=== PATIENT | female | born 1970 | race Caucasian/White ===

== ENCOUNTER 2020-11-05 10:20 | Outpatient (REF) | payer MEDICAID, SELFPAY | END 2020-11-05 10:21 | disposition home or self-care (01) | LOC: HO.LAB 10:20 | PROVIDERS: Visit Provider Internal Medicine | DX: Z20.822 Contact with and (suspected) exposure to COVID-19 (principal) | CPT/HCPCS: 36415; C9803; U0003; U0005 ==

== ENCOUNTER 2020-12-12 10:47 | Outpatient (REF) | payer MEDICAID, SELFPAY ==
--- NOTE | ~2020-12-12 | MM_ITS ---
EXAMINATION: MM SCREENING DIGITAL BREAST TOMOSYNTHESIS, BILATERAL CLINICAL INFORMATION: Screening. Asymptomatic. The lifetime risk of breast cancer based on the Tyrer-Cuzick Model is 9.0%. COMPARISON: Mammography: December 06, 2019 TECHNIQUE: Digital breast tomosynthesis is performed in both the craniocaudal and mediolateral oblique views along with computer-aided detection (CAD). Synthesized 2D images are generated from the tomosynthesis. FINDINGS: There are scattered areas of fibroglandular density (ACR BI-RADS breast composition Category b). There are no new significant masses, abnormal calcifications, or other abnormalities. Stable density anterior medial inferior left breast again seen. MM/MM tomosynthesis screening BI IMPRESSION: There are no significant changes from prior study. ASSESSMENT: BI-RADS 2: Benign RECOMMENDATION: Routine annual mammography screening. This patient's information was entered into a reminder system with a target due date for their next mammogram.
== END 2020-12-12 10:48 | disposition home or self-care (01) ==
LOC: HO.MAMMO 10:47
PROVIDERS: PCP Nurse Practitioner Primary Care
DX: Z12.31 Encounter for screening mammogram for malignant neoplasm of breast (principal)
CPT/HCPCS: 77063; 77067

== ENCOUNTER → 2020-12-20 14:23 | Outpatient (BNV) | payer MEDICAID, SELFPAY | PROVIDERS: PCP Nurse Practitioner Primary Care; Referring Provider Nurse Practitioner Primary Care; Visit Provider Internal Medicine Medical Oncology | DX: D64.9 Anemia, unspecified (principal) | CPT/HCPCS: 99204; 99213 ==

== ENCOUNTER 2020-12-30 11:53 | Outpatient (REF) | payer MEDICAID, SELFPAY | END 2020-12-30 11:54 | disposition home or self-care (01) | LOC: HO.MDS 11:53 | PROVIDERS: Visit Provider Internal Medicine Medical Oncology | DX: D50.9 Iron deficiency anemia, unspecified (principal) | CPT/HCPCS: 96365; J1439 ==

== ENCOUNTER 2021-01-07 12:54 | Outpatient (REF) | payer MEDICAID, SELFPAY | END 2021-01-07 12:55 | disposition home or self-care (01) | LOC: HO.MDS 12:54 | PROVIDERS: Visit Provider Internal Medicine Medical Oncology | DX: D50.9 Iron deficiency anemia, unspecified (principal) | CPT/HCPCS: 96365; J1439 ==

== ENCOUNTER 2021-04-28 06:23 | Day surgery (SDC) | payer MEDICAID, SELFPAY ==
[2021-04-21 15:32] VITALS: BMI 27.1
--- NOTE | 2021-04-25 08:43 | HO.ANESPROP2 ---
Documented by User: Lily Albarado 04/25/21 08:45 HPI - Anesthesia Eval Consult details Narrative: 50yo F for Upper Endoscopy and Colonoscopy PMFSH Active Problems Active Problems: All Active Problems (Updated 04/21/21 @ 15:27 by Berta Monzon) Anemia (Acute) Past Medical History Medical History Anemia Benign essential hypertension HTN (hypertension) Iron deficiency anemia Kidney stones Family History Family History Mother Colon cancer Diabetes Sister Lupus Father Diabetes Hypertension Unknown Breast cancer Surgical History Surgical History Delivery by section History of surgery on arm Hx of bariatric surgery Social History Social History Are you a primary acute care clinical nurse specialist to a significant other at home: No Do you presently have visiting nurse or other home services: No Alcohol intake: former Patient Tobacco Use Status: Never used Tobacco Use of substances other than those prescribed or required for medical reasons: No Have you been hit, kicked, punched, or otherwise hurt by someone within the past year? If so, by whom?: No Are you DNR?: No Advance Directives: No Advance Directives Information Provided: No Advance Directives on File: No Meds Allergies Allergy/AdvReac Type Severity Reaction Status Date / Time No Known Allergies Allergy Verified 04/21/21 15:31 Home Medications Medication Instructions Recorded Confirmed Last Taken Type acetaminophen [Tylenol Extra 500 mg PO Q6H PRN 12/20/20 04/21/21 Unknown History Strength] ascorbic acid (vitamin C) [Vitamin 250 mg PO DAILY 12/20/20 04/21/21 Unknown History C] lisinopril 5 mg PO DAILY 12/20/20 04/21/21 04/28/21 06:20 History wslnijexnhrq-Wq-fici-minerals 1 tab PO DAILY 12/20/20 04/21/21 Unknown History [Multiple Vitamin, Womens] Exam Exam Date and Time: April 25, 2021 0843 Height,Weight and Vital Signs: Height 5 ft 2 in Weight 67.132 kg Pertinent Lab Results Pertinent Lab Results: Laboratory Tests 12/20/20 12/20/20 15:25 15:41 WBC 6.5 Hgb 9.9 L Hct 32.5 L Plt Count 385 Sodium 140 Potassium 4.5 Chloride 106 Carbon Dioxide 24 BUN 17 H Creatinine 0.76 Assessment and Plan Assessment Anesthesia Assessment: Chart Reviewed Documented by User: Miryam Lira 04/28/21 07:22 [facility] Past Medical History Medical History Anemia Benign essential hypertension HTN (hypertension) Iron deficiency anemia Kidney stones Family History Family History Mother Colon cancer Diabetes Sister Lupus Father Diabetes Hypertension Unknown Breast cancer Surgical History Surgical History Delivery by section History of surgery on arm Hx of bariatric surgery Social History Social History Are you a primary acute care clinical nurse specialist to a significant other at home: No Do you presently have visiting nurse or other home services: No Alcohol intake: former Patient Tobacco Use Status: Never used Tobacco Use of substances other than those prescribed or required for medical reasons: No Have you been hit, kicked, punched, or otherwise hurt by someone within the past year? If so, by whom?: No Are you DNR?: No Advance Directives: No Advance Directives Information Provided: No Advance Directives on File: No Meds Allergies Allergy/AdvReac Type Severity Reaction Status Date / Time No Known Allergies Allergy Verified 04/21/21 15:31 Home Medications Medication Instructions Recorded Confirmed Last Taken Type acetaminophen [Tylenol Extra 500 mg PO Q6H PRN 12/20/20 04/21/21 Unknown History Strength] ascorbic acid (vitamin C) [Vitamin 250 mg PO DAILY 12/20/20 04/21/21 Unknown History C] lisinopril 5 mg PO DAILY 12/20/20 04/21/21 04/28/21 06:20 History eermnllcovwv-Rt-dpkf-minerals 1 tab PO DAILY 12/20/20 04/21/21 Unknown History [Multiple Vitamin, Womens] Exam Airway Mallampati Class: II TM Dist: >3cm Neck ROM: Full Assessment and Plan Assessment Anesthesia Assessment: Anesthesia Plan Discussed and Chart Reviewed Final Anesthetic Review NPO: Yes ASA Class: II Final Preanesthetic Review: No Changes in Pt Med Stat, Meds/Allgs Chart Reviewed, Consent Obtained/Reviewed and Anes Risks/Benef Reviewed Patient Risk: Low Procedure Risk: Low Assessment/Block/Sedation in SS: Assess/Block/Sedation-SS Anesthetic Plan Anesthetic Plan: MAC: Disposition: Standard PACU
[2021-04-28 07:01] LABS: UPreg QC Valid YES; Urine Pregnancy NEGATIVE (NEGATIVE)
[2021-04-28] MEDS: Lactated Ringers 1,000 ML 100 ML IVCONT (07:14)
[2021-04-28 08:44] VITALS: BP 91/58; PULSE 74; RESP 16; TEMP 36.2; O2SAT 99
--- NOTE | 2021-04-28 08:48 | P.BOP_ITS ---
Brief Operative Note Date of Service: 04/28/21 Pre-op diagnosis: Anemia, Screening Post-op diagnosis: other (Hiatal hernia, R/O celiac disease, Diverticulosis) Procedure: EGD with biopsies, Colonoscopy to the cecum and TI Surgeon: Dylon Arreola Anesthesia: MAC Was an Metal Mine Inspector used for this Procedure?: No Estimated blood loss (mL): 3.0 Pathology: other (A. Descending duodenum) Condition: stable Disposition: PACU
[2021-04-28 08:59] VITALS: BP 111/60; PULSE 83; RESP 16; TEMP 36.3; O2SAT 99
--- NOTE | 2021-04-28 09:58 | OP_ITS ---
SURGEON: Dylon Arreola MD INDICATIONS: The patient presents for evaluation of anemia and colorectal cancer screening. Full consent has been obtained from her for both procedures, including risks of bleeding and perforation. PREOPERATIVE DIAGNOSIS: POSTOPERATIVE DIAGNOSIS: PROCEDURE PERFORMED: Esophagogastroduodenoscopy with biopsies and colonoscopy to the cecum and terminal ileum. ESTIMATED BLOOD LOSS: COMPLICATIONS: ANESTHESIA: Monitored anesthesia care. ASSISTANTS: SPECIMENS: PREOPERATIVE DIAGNOSES: Anemia and colorectal cancer screening. POSTOPERATIVE DIAGNOSES: Anemia and colorectal cancer screening, rule out celiac disease, small hiatal hernia, diverticulosis, and internal hemorrhoids. DESCRIPTION OF PROCEDURE: The patient was placed in the left lateral decubitus position. The Olympus video gastroscope was passed in the posterior oropharynx and upper esophagus under direct vision. The scope was passed slowly into the distal esophagus. The gastroesophageal junction appeared normal at 35 cm. There was no sign of any esophagitis, Ortiz's esophagus, nor ulceration. The scope entered into the stomach. There was a small hiatal hernia. The scope was advanced to pylorus and the duodenum was cannulated to the descending portion. The duodenum including the bulb appeared normal without mass or ulceration. Biopsies were obtained from the second and third portions of duodenum. The scope was withdrawn back into the stomach. The gastric antrum appeared normal with good peristalsis. Along the body and proximal stomach, I could see a scar consistent with her previous gastric sleeve surgery. The scope was retroflexed visualizing the proximal stomach carefully which appeared normal, without any sign of mass or ulceration. The scope was straightened out and withdrawn back into the esophagus. The esophageal mucosa appeared normal. The scope was withdrawn from the patient. She was turned around for colonoscopy. The digital rectal exam revealed no abnormalities. The Olympus video pediatric colonoscope was entered into the rectum and advanced easily to the cecum. Once in the cecum, I did identify normal-appearing cecal pouch with appendiceal orifice and a normal-appearing ileocecal valve. The terminal ileum was cannulated and appeared normal. The scope was withdrawn back in the colon. The entire cecum and ileocecal valve appeared normal. The scope was slowly withdrawn assessing all mucosal surfaces carefully. Preparation was excellent. I did not visualize any sign of polyps, colitis, nor angiodysplasia. There was a mild amount of sigmoid diverticulosis. In the rectum, scope was retroflexed visualizing internal hemorrhoids, but no other pathology. The rectal mucosa appeared normal. The scope was straightened out and withdrawn from the patient. She tolerated both procedures well and was returned to the recovery area in stable condition. IMPRESSION: 1. Small hiatal hernia. 2. Rule out celiac disease. 3. Diverticulosis. 4. Internal hemorrhoids. PLAN: The results of the biopsy will be checked. I would recommend a repeat colonoscopy in 5 years given her significant family history of colon cancer in her mother at age 50. She will continue follow up with Dr. Lynne in regard to her anemia. This seems to be related to her heavy menses. She will otherwise see me on a p.r.n. basis. MD ABENA Lowery/AIDAN / [phone]
== END 2021-04-28 09:43 | disposition home or self-care (01) ==
PROVIDERS: Nurse Practitioner; PCP Nurse Practitioner Primary Care; Visit Provider Internal Medicine
PROC: (CPT 45378; principal; 2021-04-28 07:30)
DX: Z12.11 Encounter for screening for malignant neoplasm of colon (principal); Z80.0 Family history of malignant neoplasm of digestive organs; K57.30 Diverticulosis of large intestine without perforation or abscess without bleeding; K64.8 Other hemorrhoids; D50.9 Iron deficiency anemia, unspecified; K44.9 Diaphragmatic hernia without obstruction or gangrene; I10 Essential (primary) hypertension; Z79.899 Other long term (current) drug therapy; Z98.84 Bariatric surgery status
CPT/HCPCS: 45378; 43239; 81025; 88305; J3010

== ENCOUNTER 2021-06-04 13:35 | Outpatient (REF) | payer MEDICAID, SELFPAY ==
--- NOTE | ~2021-06-04 | US_ITS ---
EXAMINATION: US PELVIS CLINICAL INFORMATION: Irregular menstrual cycles in excessive and frequent menstruation COMPARISON: None TECHNIQUE: Ultrasound of the pelvis is performed using both transabdominal and transvaginal transducers along with Doppler. Transvaginal imaging is performed due to inadequate visualization transabdominally. FINDINGS: The uterus is anteverted and retroflexed and measures 8.5 x 4.4 x 5.1 cm in dimension. The endometrium is difficult to define and measure. The endometrium may be slightly thickened measuring 1.8 cm. The endometrium appears heterogeneous appearing. There is fluid in the endometrial cavity. There is a 9 x 8 x 9 mm isoechoic area in the endometrium with flow questionable for an endometrial polyp. No focal uterine lesion is seen. The ovaries are normal-appearing. The right ovary measures 2.5 x 1.2 x 1.3 cm. The left ovary measures 2.6 x 1.9 x 2 cm. There is no fluid in the pelvis. US/US pelvic and transvaginal IMPRESSION: The endometrium is difficult to define and may be slightly thickened measuring 1.8 cm. The endometrium is heterogeneous appearing with question of a 9 x 8 x 9 mm endometrial polyp.
== END 2021-06-04 13:36 | disposition home or self-care (01) ==
LOC: HO.US 13:35
PROVIDERS: PCP Nurse Practitioner Primary Care; Visit Provider Nurse Practitioner Primary Care
DX: N92.0 Excessive and frequent menstruation with regular cycle (principal)
CPT/HCPCS: 76830; 76856

== ENCOUNTER 2021-06-17 10:12 | Outpatient (REF) | payer MEDICAID, SELFPAY ==
[2021-06-18 03:21] LABS: CT PCR NOT DETECTED (Not Detect.); NG PCR NOT DETECTED (Not Detect.)
[2021-06-19 16:37] LABS: HPV mRNA E6/E7 rflx Not Detected (Not Detected)
== END 2021-06-17 10:13 | disposition home or self-care (01) ==
LOC: HO.LAB 10:12
PROVIDERS: PCP Nurse Practitioner Primary Care; Visit Provider Obstetrics & Gynecology
DX: Z01.419 Encounter for gynecological examination (general) (routine) without abnormal findings (principal); N92.0 Excessive and frequent menstruation with regular cycle
CPT/HCPCS: 36415; 81025; 84439; 84443; 84702; 85027; 87491; 87591; 87624; 88142; 88305; 99202; J1100; J2250; J2405; J3010

== ENCOUNTER 2021-06-20 09:20 | Day surgery (SDC) | payer MEDICAID, SELFPAY ==
[2021-06-17 12:01] LABS: Hematocrit 37.6 % (37-47); Hemoglobin 12.3 g/dl (12.0-16.0); Mean Corpuscular HGB Conc 32.7 g/dl (31.0-35.0); Mean Corpuscular Hemoglobin 30.4 pg (27.0-33.0); Mean Corpuscular Volume 93.1 fL (80-98); Platelet Count 338 X10*3/uL (160-400); Red Blood Count 4.04 X10*6/uL (4.20-5.50); Red Cell Distribution Width 12.3 % (11.0-16.0); White Blood Count 6.6 X10*3/uL (4.8-10.8)
[2021-06-17 12:26] LABS: HCG Quantitative < 2 mIU/mL; TSH reflex Free T4 0.23 uIU/mL (0.32-4.0)
[2021-06-17 13:19] LABS: Free T4 (Free Thyroxine) 1.05 ng/dL (0.71-1.85)
--- NOTE | 2021-06-18 15:18 | HO.ANESPROP2 ---
Documented by User: Lily Albarado NP 06/18/21 15:18 HPI - Anesthesia Eval Consult details Narrative: 50yo F for D&C Hysteroscopy,possible myomectomy,possible polypectomy s/p EGD and [place] with TIVA 04/2021 PMFSH Active Problems Active Problems: All Active Problems (Updated 06/17/21 @ 10:35 by Duy Celeste MD) Menorrhagia (Acute) Anemia (Acute) Past Medical History Medical History Anemia Benign essential hypertension HTN (hypertension) Iron deficiency anemia Kidney stones Family History Family History Mother Colon cancer Diabetes Sister Lupus Father Diabetes Hypertension Unknown Breast cancer Surgical History Surgical History (Updated 06/20/21 @ 10:19 by Akanksha Will MD) Delivery by section History of surgery on arm Hx of bariatric surgery Tubal ligation status Social History Social History Are you a primary specialist wound care to a significant other at home: No Do you presently have visiting nurse or other home services: No Alcohol intake: former Patient Tobacco Use Status: Never used Tobacco Use of substances other than those prescribed or required for medical reasons: No Are you DNR?: No Advance Directives: No Advance Directives Information Provided: Yes Recently lost weight without trying: No Nutrition Risks: No Nutritional Risk Patient : No Meds Allergies Allergy/AdvReac Type Severity Reaction Status Date / Time No Known Allergies Allergy Verified 06/17/21 10:21 Home Medications Medication Instructions Recorded Confirmed Last Taken Type acetaminophen 500 mg tablet 500 mg PO Q6H PRN 12/20/20 05/06/21 Unknown History (Tylenol Extra Strength) lisinopril 5 mg tablet 5 mg PO DAILY 12/20/20 05/06/21 06/20/21 History Exam Exam Date and Time: June 18, 2021 1518 Pertinent Lab Results Pertinent Lab Results: Laboratory Tests 06/17/21 06/17/21 11:30 11:30 WBC 6.6 RBC 4.04 L Hgb 12.3 Hct 37.6 MCV 93.1 MCH 30.4 MCHC 32.7 RDW 12.3 Plt Count 338 MPV 10.0 Absolute Nucleated RBC 0.000 Nucleated RBC % (auto) 0.0 TSH 0.23 L Free T4 1.05 Beta HCG, Quant < 2 Assessment and Plan Assessment Anesthesia Assessment: Chart Reviewed Documented by User: Akanksha Will MD 06/20/21 10:20 [facility] Past Medical History Medical History Anemia Benign essential hypertension HTN (hypertension) Iron deficiency anemia Kidney stones Family History Family History Mother Colon cancer Diabetes Sister Lupus Father Diabetes Hypertension Unknown Breast cancer Family history of problems with anesthesia: No Surgical History Surgical History (Updated 06/20/21 @ 10:19 by Akanksha Will MD) Delivery by section History of surgery on arm Hx of bariatric surgery Tubal ligation status History of Problems with Anesthesia: No Social History Social History Are you a primary specialist wound care to a significant other at home: No Do you presently have visiting nurse or other home services: No Alcohol intake: former Patient Tobacco Use Status: Never used Tobacco Use of substances other than those prescribed or required for medical reasons: No Are you DNR?: No Advance Directives: No Advance Directives Information Provided: Yes Recently lost weight without trying: No Nutrition Risks: No Nutritional Risk Patient : No Meds Allergies Allergy/AdvReac Type Severity Reaction Status Date / Time No Known Allergies Allergy Verified 06/17/21 10:21 Home Medications Medication Instructions Recorded Confirmed Last Taken Type acetaminophen 500 mg tablet 500 mg PO Q6H PRN 12/20/20 05/06/21 Unknown History (Tylenol Extra Strength) lisinopril 5 mg tablet 5 mg PO DAILY 12/20/20 05/06/21 06/20/21 History Exam Height,Weight and Vital Signs: Height 5 ft 2 in Weight 67.585 kg Vital Signs Temp Pulse Resp BP Pulse Ox 06/20/21 09:52 98.1 F 71 17 126/67 96 Airway Mallampati Class: II TM Dist: >3cm Neck ROM: Full Partial: Upper and Lower Heart: RRR Lungs: CTAB Assessment and Plan Assessment Anesthesia Assessment: Anesthesia Plan Discussed Final Anesthetic Review Family History of Problems with Anesthesia: No History of Problems with Anesthesia: No NPO: Yes ASA Class: II Final Preanesthetic Review: No Changes in Pt Med Stat, Meds/Allgs Chart Reviewed, Consent Obtained/Reviewed and Anes Risks/Benef Reviewed Patient Risk: Low Procedure Risk: Low Assessment/Block/Sedation in SS: Assess/Block/Sedation-SS Anesthetic Plan Anesthetic Plan: GA Disposition: Standard PACU
[2021-06-20] VITALS (7 sets, daily range): BP systolic 117–133; BP diastolic 56–70; PULSE 55–76; RESP 16–18; TEMP 36.1–36.7; O2SAT 96–100; BMI 27.2
[2021-06-20 10:02] LABS: UPreg QC Valid YES; Urine Pregnancy NEGATIVE (NEGATIVE)
[2021-06-20] MEDS: Lactated Ringers 1,000 ML 100 ML IVCONT (10:15)
--- NOTE | 2021-06-20 12:58 | MHC.SHP ---
Pre-Procedural Eval Section A Date of Service: 06/20/21 The patient is an INPATIENT: No Changes since office visit: No Cold of Flu in the past 2 weeks, No New Medical Problems, No Changes in Medication and No Patient answered all questions The History & Physical has been completed within 30 days and I have reviewed it.: Yes Section B Chief Complaint: bleeding Allergies: Allergies Allergy/AdvReac Type Severity Reaction Status Date / Time No Known Allergies Allergy Verified 06/17/21 10:21 Plan Diagnosis/Plan: Unchanged I have reviewed the history and physical and performed a pertinent physical examination on my patient. No changes have occurred unless specified.
--- NOTE | 2021-06-20 14:04 | PM.OP ---
Brief Operative Note Date of Service: 06/20/21 Pre-op diagnosis: Menorrhagia Post-op diagnosis: same (Normal endometrial and endocervical cavity) Procedure: Hysteroscopy D&C Surgeon: Duy Celeste MD Anesthesia: MAC Was an Electronic Prepress Technician used for this Procedure?: No Estimated blood loss (mL): 0 Pathology: other (Endometrial Scrapping) Condition: stable Disposition: PACU
--- NOTE | 2021-06-20 14:05 | P.OP_ITS ---
Operative Note Operative Note Date of Service: 06/20/21 Narrative: Preop Diagnosis: Menorrhagia Operation: Diagnostic Hysteroscopy, Dilataion & Curettage Post Op Diagnosis: Normal endometrial cavity QBL: Minimal Anesthesia: MAC Surgeon: Duy Celeste MD Electrical Automation Engineer: None Complication: None Pathology: Endometrial Scrapings Procedure: The patient was put in the dorsal lithotomy position, scrubbed, and draped in the usual manner. A sterile speculum was inserted in the patient's vagina. The anterior lip of the cervix was grasped with a single tooth tenaculum. The cervix was dilated up to 5 mm, then the scope was inserted in the patient's uterus. Inspection revealed Normal endometrial cavity. Sharp curettings was carried on with moderate amount of tissue was retrieved. At the end of the procedure, all instruments were taken out of the patient uterine and vaginal cavity. The single tooth tenaculum was removed and homeostasis was assured using pressure,. The patient tolerated the procedure well and was transferred to the PACU in a stable condition.
== END 2021-06-20 15:10 | disposition home or self-care (01) ==
PROVIDERS: PCP Nurse Practitioner Primary Care; Visit Provider Obstetrics & Gynecology
PROC: 0UDB8ZZ Extraction of Endometrium, Via Natural or Artificial Opening Endoscopic (ICD-10-PCS; CPT 58558; principal; 2021-06-20 11:30)
DX: N92.0 Excessive and frequent menstruation with regular cycle (principal); N93.9 Abnormal uterine and vaginal bleeding, unspecified; D50.9 Iron deficiency anemia, unspecified; I10 Essential (primary) hypertension; Z79.899 Other long term (current) drug therapy; Z98.84 Bariatric surgery status; Z98.51 Tubal ligation status; Z87.442 Personal history of urinary calculi
CPT/HCPCS: 58558; 36415; 81025; 84439; 84443; 84702; 85027; 87491; 87591; 87624; 88142; 88305; 99202; J1100; J2250; J2405; J3010

== ENCOUNTER → 2021-07-03 13:41 | Outpatient (BNVA) | payer MEDICAID, SELFPAY | PROVIDERS: PCP Nurse Practitioner Primary Care; Visit Provider Obstetrics & Gynecology ==

== ENCOUNTER → 2021-09-04 11:32 | Outpatient (BNVA) | payer MEDICAID, SELFPAY | PROVIDERS: PCP Nurse Practitioner Primary Care; Visit Provider Obstetrics & Gynecology ==

== ENCOUNTER 2021-12-25 14:20 | Outpatient (REF) | payer MEDICAID, SELFPAY ==
--- NOTE | ~2021-12-25 | MM_ITS ---
EXAMINATION: MM SCREENING DIGITAL BREAST TOMOSYNTHESIS, BILATERAL CLINICAL INFORMATION: Screening. Asymptomatic. The lifetime risk of breast cancer based on the Tyrer-Cuzick Model is 7.1%. COMPARISON: Mammography: December 12, 2020 and December 06, 2019 TECHNIQUE: Digital breast tomosynthesis is performed in both the craniocaudal and mediolateral oblique views along with computer-aided detection (CAD). Synthesized 2D images are generated from the tomosynthesis. FINDINGS: There are scattered areas of fibroglandular density (ACR BI-RADS breast composition Category b). There are no significant masses, abnormal calcifications, or other abnormalities. MM/MM tomosynthesis screening BI IMPRESSION: There are no significant changes from prior study. ASSESSMENT: BI-RADS 1: Negative RECOMMENDATION: Routine annual mammography screening. This patient's information was entered into a reminder system with a target due date for their next mammogram.
== END 2021-12-25 14:21 | disposition home or self-care (01) ==
LOC: HO.MAMMO 14:20
PROVIDERS: PCP Nurse Practitioner Primary Care; Visit Provider Nurse Practitioner Primary Care
DX: Z12.31 Encounter for screening mammogram for malignant neoplasm of breast (principal)
CPT/HCPCS: 77063; 77067

== ENCOUNTER → 2021-12-30 14:17 | Outpatient (BNVA) | payer MEDICAID, SELFPAY | PROVIDERS: Visit Provider Obstetrics & Gynecology | DX: N92.0 Excessive and frequent menstruation with regular cycle (principal) | CPT/HCPCS: 99212 ==

== ENCOUNTER 2022-02-26 08:32 | Outpatient (REF) | payer MEDICAID, SELFPAY ==
[2022-02-26 15:46] LABS: CT PCR NOT DETECTED (Not Detect.)
[2022-02-26 15:47] LABS: NG PCR NOT DETECTED (Not Detect.)
== END 2022-02-26 08:33 | disposition home or self-care (01) ==
LOC: HO.LAB 08:32
PROVIDERS: Visit Provider Obstetrics & Gynecology
DX: Z30.430 Encounter for insertion of intrauterine contraceptive device (principal); N92.0 Excessive and frequent menstruation with regular cycle
CPT/HCPCS: 58300; 81025; 87491; 87591; J7298

== ENCOUNTER → 2022-04-30 09:37 | Outpatient (BNVA) | payer MEDICAID, SELFPAY | PROVIDERS: PCP Nurse Practitioner Primary Care; Visit Provider Obstetrics & Gynecology | DX: Z32.02 Encounter for pregnancy test, result negative (principal); Z30.432 Encounter for removal of intrauterine contraceptive device; N93.9 Abnormal uterine and vaginal bleeding, unspecified | CPT/HCPCS: 58301; 81025; 99212 ==

== ENCOUNTER 2022-06-11 12:25 | Outpatient (REF) | payer MEDICAID, SELFPAY ==
--- NOTE | ~2022-06-11 | US_ITS ---
EXAMINATION: US THYROID CLINICAL INFORMATION: Abnormal results of thyroid. COMPARISON: None TECHNIQUE: Linear transducer grayscale and color Doppler examination with attention to the region of the thyroid. FINDINGS: SIZE: Measurements of the thyroid lobes and nodules are given in sagittal, anteroposterior and transverse dimensions respectively. Right Thyroid Lobe: 4.42 x 1.21 x 1.34 cm, volume 3.73 mL. Parenchyma: The gland echotexture is homogeneous. Thyroid vascularity is normal. Left Thyroid Lobe: 4.65 x 1.07 x 1.61 cm, volume 4.22 mL. Parenchyma: The gland echotexture is homogeneous. Thyroid vascularity is normal. Isthmus: 0.29 cm in maximum AP dimension. Estimated total number of nodules greater than or equal to 1 cm: 0. [employer] Director nodules are described as follows: 1. Location: Left isthmus. Size: 0.24 x 0.17 x 0.21 cm, volume 0.005 mL. Nodule characteristics: Composition: Spongiform (0). Echogenicity: Anechoic (0). Shape: Not taller than wide (0). Margins: Smooth (0). Echogenic Foci: None (0). ACR TI-RADS total points: 0 ACR TI-RADS category: 1 NODES: No lymphadenopathy is seen in the tissue surrounding the thyroid gland. US/US thyroid IMPRESSION: Unremarkable thyroid ultrasound. ACR TI-RADS RECOMMENDATION REFERENCE: Ultrasound-guided fine-needle aspiration, followup ultrasound, no further follow up. * TR1 (0 point) and TR 2 (2 points): No FNA or follow up * TR3 (3 points): FNA if more than or equal to 2.5 cm in maximum dimension, followup ultrasound in 1, 3 and 5 years if 1.5 to 2.4 cm in maximum dimension. * TR4 (4-6 points): FNA if more than or equal to 1.5 cm in maximum dimension, followup ultrasound in 1, 2, 3 and 5 years if 1 to 1.4 cm in maximum dimension. * TR5 (more than or equal to 7 points): FNA if more than or equal to 1 cm in maximum dimension, followup ultrasound every year for 5 years if 0.5 to 0.9 cm in maximum dimension. * TR3, TR4 or TR5 nodules that are below the size threshold for follow up receive no follow up.
== END 2022-06-11 12:26 | disposition home or self-care (01) ==
LOC: HO.US 12:25
PROVIDERS: Visit Provider Nurse Practitioner Primary Care
DX: R94.6 Abnormal results of thyroid function studies (principal); R79.89 Other specified abnormal findings of blood chemistry
CPT/HCPCS: 76536

== ENCOUNTER → 2022-08-05 13:55 | Outpatient (BNVA) | payer MEDICAID, SELFPAY | PROVIDERS: PCP Nurse Practitioner Primary Care; Visit Provider Obstetrics & Gynecology | DX: N93.9 Abnormal uterine and vaginal bleeding, unspecified (principal) | CPT/HCPCS: 99212 ==

== ENCOUNTER → 2022-11-04 15:38 | Outpatient (BNVA) | payer MEDICAID, SELFPAY | PROVIDERS: PCP Nurse Practitioner Primary Care; Visit Provider Internal Medicine Endocrinology, Diabetes & Metabolism | DX: R79.89 Other specified abnormal findings of blood chemistry (principal) | CPT/HCPCS: 99202 ==

== ENCOUNTER 2023-01-08 11:10 | Outpatient (REF) | payer MEDICAID, SELFPAY | END 2023-01-08 11:11 | disposition home or self-care (01) | LOC: HO.MDS 11:10 | PROVIDERS: Visit Provider Internal Medicine Medical Oncology | DX: D50.9 Iron deficiency anemia, unspecified (principal) | CPT/HCPCS: 96365; J1756 ==

== ENCOUNTER 2023-01-15 09:14 | Outpatient (REF) | payer MEDICAID, SELFPAY | END 2023-01-15 09:15 | disposition home or self-care (01) | LOC: HO.MDS 09:14 | PROVIDERS: Visit Provider Internal Medicine Medical Oncology | DX: D50.9 Iron deficiency anemia, unspecified (principal) | CPT/HCPCS: 96365; J1756 ==

== ENCOUNTER 2023-01-22 10:53 | Outpatient (REF) | payer MEDICAID, SELFPAY | END 2023-01-22 10:54 | disposition home or self-care (01) | LOC: HO.MDS 10:53 | PROVIDERS: Visit Provider Internal Medicine Medical Oncology | DX: D50.9 Iron deficiency anemia, unspecified (principal) | CPT/HCPCS: 96365; J1756 ==

== ENCOUNTER 2023-01-29 10:52 | Outpatient (REF) | payer MEDICAID, SELFPAY ==
[2023-01-29 11:23] LABS: MANUAL DIFF FLAG NO
[2023-01-29 11:25] LABS: Basophils Percent Auto 0.5 % (0-2); Eosinophils Absolute Auto 0.1 X10*3/uL (0.0-0.4); Eosinophils Percent Auto 1.5 % (0-4); Hematocrit 36.6 % (37.0-47.0); Hemoglobin 11.5 g/dl (12.0-16.0); Imm Gran Abs Auto 0.01 X10*3/uL (0.00-0.03); Imm Gran Pct Auto 0.2 % (0.0-0.4); Lymphocytes Absolute Auto 1.4 X10*3/uL (1.2-4.9); Lymphocytes Percent Auto 24.2 % (20-40); Mean Corpuscular HGB Conc 31.4 g/dl (31.0-35.0); Mean Corpuscular Hemoglobin 27.1 pg (27.0-33.0); Mean Corpuscular Volume 86.1 fL (80.0-98.0); Mean Platelet Volume 9.2 fL (9.4-12.3); Monocytes Absolute Auto 0.4 X10*3/uL (0.1-1.2); Monocytes Percent Auto 7.2 % (2-11); Neutrophils Absolute Auto 3.9 x10*3/uL (2.0-8.3); Neutrophils Percent Auto 66.4 % (45-73); Platelet Count 377 X10*3/uL (160-400); Red Blood Count 4.25 X10*6/uL (4.20-5.50); Red Cell Distribution Width 15.2 % (11.0-16.0); White Blood Count 5.9 X10*3/uL (4.8-10.8)
[2023-01-29 12:01] LABS: Ferritin 212 ng/mL (10-250)
== END 2023-01-29 10:53 | disposition home or self-care (01) ==
LOC: HO.MDS 10:52
PROVIDERS: Visit Provider Internal Medicine Medical Oncology
DX: D50.9 Iron deficiency anemia, unspecified (principal)
CPT/HCPCS: 36415; 82728; 85025; 96365; J1756

== ENCOUNTER 2023-02-04 14:21 | Outpatient (REF) | payer MEDICAID, SELFPAY ==
--- NOTE | ~2023-02-04 | MM_ITS ---
EXAMINATION: MM SCREENING DIGITAL BREAST TOMOSYNTHESIS, BILATERAL CLINICAL INFORMATION: Screening. Asymptomatic. The lifetime risk of breast cancer based on the Tyrer-Cuzick Model is 9%. COMPARISON: Mammography: 12/25/2021, 12/12/2020, 12/06/2019; outside mammography 05/19/2017 ([facility], [place], [place]). Ultrasound left breast 06/14/2020. TECHNIQUE: Digital breast tomosynthesis is performed in both the craniocaudal and mediolateral oblique views along with computer-aided detection (CAD). Synthesized 2D images are generated from the tomosynthesis. FINDINGS: There are scattered areas of fibroglandular density (ACR BI-RADS breast composition Category b). Breast tissue composition borders on predominantly fatty. There is a benign chronic smooth macrolobulated nodule anterior 8:00 left breast likely fibroadenoma, similar to prior studies. Parenchymal pattern is similar to prior studies. There is no developing density or architectural abnormality. The axilla and skin contours are unremarkable. No significant changes. MM/MM tomosynthesis screening BI IMPRESSION: No mammographic evidence of malignancy. ASSESSMENT: BI-RADS 2: Benign RECOMMENDATION: Routine annual mammography screening. This patient's information was entered into a reminder system with a target due date for their next mammogram.
== END 2023-02-04 14:22 | disposition home or self-care (01) ==
LOC: HO.MAMMO 14:21
PROVIDERS: PCP Nurse Practitioner Primary Care; Visit Provider Nurse Practitioner Primary Care
DX: Z12.31 Encounter for screening mammogram for malignant neoplasm of breast (principal)
CPT/HCPCS: 77063; 77067

== ENCOUNTER 2023-02-05 09:08 | Outpatient (REF) | payer MEDICAID, SELFPAY | END 2023-02-05 09:09 | disposition home or self-care (01) | LOC: HO.MDS 09:08 | PROVIDERS: Visit Provider Internal Medicine Medical Oncology | DX: D50.9 Iron deficiency anemia, unspecified (principal) | CPT/HCPCS: 96365; J1756 ==

== ENCOUNTER 2023-02-26 09:03 | Outpatient (REF) | payer MEDICAID, SELFPAY | END 2023-02-26 09:04 | disposition home or self-care (01) | LOC: HO.MDS 09:03 | PROVIDERS: Visit Provider Internal Medicine Medical Oncology | DX: D50.9 Iron deficiency anemia, unspecified (principal) | CPT/HCPCS: 96365; J1756 ==

== ENCOUNTER 2023-03-04 13:14 | Outpatient (REF) | payer MEDICAID, SELFPAY | END 2023-03-04 13:15 | disposition home or self-care (01) | LOC: HO.MDS 13:14 | PROVIDERS: Visit Provider Internal Medicine Medical Oncology | DX: D50.9 Iron deficiency anemia, unspecified (principal) | CPT/HCPCS: 96365; J1756 ==

== ENCOUNTER 2023-03-05 11:16 | Outpatient (REF) | payer MEDICAID, SELFPAY ==
--- NOTE | ~2023-03-05 | XR_ITS ---
EXAMINATION: XR KNEE, RIGHT CLINICAL INFORMATION: Right knee pain COMPARISON: None available. TECHNIQUE: 3 views of the right knee. FINDINGS: Bones are well-mineralized. There is marked narrowing of the lateral compartment of right knee joint with marginal spurring of lateral femoral condyle and lateral tibial plateau. There is mild varus deformity of the knee. There is mild suprapatellar joint effusion. XR/XR knee RT 3V IMPRESSION: Changes of osteoarthritis in the lateral compartment of right knee joint and mild joint effusion.
== END 2023-03-05 11:17 | disposition home or self-care (01) ==
LOC: HO.HHCX 11:16
PROVIDERS: Visit Provider Nurse Practitioner Primary Care
DX: M25.561 Pain in right knee (principal)
CPT/HCPCS: 73562

== ENCOUNTER 2023-03-11 11:01 | Outpatient (REF) | payer MEDICAID, SELFPAY | END 2023-03-11 11:02 | disposition home or self-care (01) | LOC: HO.MDS 11:01 | PROVIDERS: Visit Provider Internal Medicine Medical Oncology | DX: D50.9 Iron deficiency anemia, unspecified (principal) | CPT/HCPCS: 96365; J1756 ==

== ENCOUNTER 2023-07-14 13:43 | Outpatient (REF) | payer MEDICAID, SELFPAY | END 2023-07-14 13:44 | disposition home or self-care (01) | LOC: HO.LNP 13:43 | PROVIDERS: PCP Nurse Practitioner Primary Care; Visit Provider Obstetrics & Gynecology | DX: N93.9 Abnormal uterine and vaginal bleeding, unspecified (principal) | CPT/HCPCS: 0353U; 36415; 83001; 83002; 84146; 84439; 84443; 84702; 85027; 99212 ==

== ENCOUNTER 2023-07-14 13:43 | Outpatient (AMB) | payer MEDICAID, SELFPAY ==
--- NOTE | 2023-07-14 13:48 | MHC.OFFVIS ---
Intake Vital Signs 07/14/23 13:50 Height 5 ft 2 in Weight 145 lb 8.081 oz BMI 26.6 BP 110/70 Intake Visit Reasons: Medication follow up Rn Referral Required: Yes Rn Referral Language: Winter Intern Name: Gris RAE Information Interpreted: non-clinical & clinical Accompanied by: Self / Same As Patient Allergies morphine Adverse Reaction (Verified 07/14/23 13:51) Anxiety HPI HPI Comments History of Present Illness Details Presenting for follow-up for AUB on Lysteda. The patient was seen initially in 06/24 for abnormal uterine bleeding where CBC showed mild anemia, TSH within normal, GC and chlamydia negative , endometrial biopsy was negative for endometrial hyperplasia and/or malignancy , and co testing was negative. The patient was started on Mirena IUD but after few months was experiencing a lot of pelvic cramping, IUD was removed patient was started on Lysteda since then the heaviness of the menstrual flow has improved but the patient has experienced continuous intermenstrual spotting PFSH Medical History Iron deficiency anemia Kidney stones HTN (hypertension) Anemia Benign essential hypertension Surgical History Tubal ligation status History of surgery on arm Delivery by section Hx of bariatric surgery Family History Mother Colon cancer Diabetes Sister Lupus Father Diabetes Hypertension Unknown Breast cancer Social History Household Members: Spouse Housing: Apartment Are you a primary ocular care aide to a significant other at home: No Do you presently have visiting nurse or other home services: No Alcohol intake: former Patient Tobacco Use Status: Never used Tobacco service: No Current occupational status: unemployed Female Reproductive History Menstrual Age of Menarche: 11 Review of Systems Const All systems reviewed & are unremarkable except as noted in HPI and below Card Reports as per HPI Resp Reports as per HPI GI Reports as per HPI and Reports no additional complaints Reports as per HPI Physical Exam Vital Signs: Last Vital Signs BP 110/70 07/14/23 13:50 BMI result Body Mass Index 26.6 Const General: cooperative, healthy appearing and comfortable Chest Chest palpation & inspection: normal inspection of the chest and normal palpation of entire chest wall Breast/axilla inspection: normal inspection of the breasts and normal inspection of the axillae Breast/axilla palpation: normal palpation of the breasts, normal palpation of the axillae and no axillary lymphadenopathy Resp Effort & Inspection: normal respiratory effort Auscultation: clear to auscultation bilaterally Percussion: percussion normal Cardio Palpation: normal PMI Rate: regular rate Rhythm: regular rhythm Heart sounds: no murmurs and no rubs Peripheral pulses: Peripheral pulses 2+ throughout GI Inspection: Yes normal to inspection Palpation (GI): Soft to palpation, nontender, no guarding, not rigid and No hepatosplenomegaly present Percussion: Yes normal to percussion Auscultation: normal bowel sounds Rectal Exam - Female: deferred General: Yes bladder normal to palpation External Female Exam: No lesion Speculum Exam - Vagina: normal appearance of the vagina, normal palpation, normal vaginal discharge and not erythematous Speculum Exam - Cervix: normal appearance of the cervix and normal palpation Bimanual exam- vagina & uterus: normal bimanual exam, normal palpation, uterine size normal, bladder normal to palpation, consistency normal and normal palpation Bimanual Exam- Adnexa, other: normal adnexae, no masses and no tenderness Assessment & Plan Assessment & Plan (1) Abnormal uterine bleeding: Comment: Controlled with Lysteda but with persisitent intermenstrual spotting Code(s): N93.9 - Abnormal uterine and vaginal bleeding, unspecified Plan: GC/CT done, CBC, TSH, FSH/LH, prolactin, pelvic ultrasound and schedule endometrial biopsy to rule out endometrial pathology. Instructions given the patient to schedule an EMB appointment. All questions answered, the patient verbalized understanding Orders: Orders Complete Blood Count no Diff Today N93.9 - Abnormal uterine and vaginal bleeding, unspecified Prolactin Today N93.9 - Abnormal uterine and vaginal bleeding, unspecified US pelvic and transvaginal Today N93.9 - Abnormal uterine and vaginal bleeding, unspecified CT NG by PCR Today N93.9 - Abnormal uterine and vaginal bleeding, unspecified Lutenizing Hormone Today N93.9 - Abnormal uterine and vaginal bleeding, unspecified Follicle Stimulating Hormone Today N93.9 - Abnormal uterine and vaginal bleeding, unspecified TSH reflex Free T4 Today N93.9 - Abnormal uterine and vaginal bleeding, unspecified HCG Quantitative Today N93.9 - Abnormal uterine and vaginal bleeding, unspecified Coding Level of Care Code Est Pt Level 3 (59649) Diagnoses Abnormal uterine bleeding N93.9
[2023-07-14 13:50] VITALS: BP 110/70; BMI 26.6
== END 2023-07-14 14:51 | disposition home or self-care (01) ==
PROVIDERS: PCP Nurse Practitioner Primary Care; Visit Provider Obstetrics & Gynecology
DX: N93.9 Abnormal uterine and vaginal bleeding, unspecified (principal)
CPT/HCPCS: 99213

== ENCOUNTER 2023-07-14 14:32 | Outpatient (REF) | payer MEDICAID, SELFPAY ==
[2023-07-14 15:58] LABS: HCG Quantitative < 2 mIU/mL
[2023-07-15 19:08] LABS: Follicle Stimulating Hormone 10.1 mIU/mL; Lutenizing Hormone 5.1 mIU/mL; Prolactin 7.1 ng/mL
== END 2023-07-14 14:33 | disposition home or self-care (01) ==
LOC: HO.LAB 14:32
PROVIDERS: Visit Provider Obstetrics & Gynecology
DX: N93.9 Abnormal uterine and vaginal bleeding, unspecified (principal)
CPT/HCPCS: 0353U; 36415; 83001; 83002; 84146; 84439; 84443; 84702; 85027

== ENCOUNTER 2023-07-29 14:03 | Outpatient (REF) | payer MEDICAID, SELFPAY ==
--- NOTE | ~2023-07-29 | US_ITS ---
EXAMINATION: US PELVIS CLINICAL INFORMATION: Abnormal uterine vaginal bleeding; the last menstrual period was on 07/10/2023. COMPARISON: Pelvic ultrasound dated 06/04/2021. TECHNIQUE: Ultrasound of the pelvis is performed using both transabdominal and transvaginal transducers along with Doppler. Transvaginal imaging is performed due to inadequate visualization transabdominally. FINDINGS: Uterus: The uterus is anteverted and anteflexed. The uterus measures 7.7 x 2.9 x 4.8 cm. Multiple nabothian cysts are seen within the cervix, the largest measuring 9 mm. The double wall endometrial thickness is 8 mm. No endometrial polyp is presently noted. The uterus is smooth in contour and has normal myometrial echogenicity. No visible fibroid. Adnexa: Both ovaries are visualized. There is normal color flow to the adnexa. There is no ovarian torsion. There is no pelvic ascites or fluid collection. Right ovary measures 2.0 x 0.9 x 1.3 cm, volume 1.2 mL. Left ovary measures 2.6 x 1.4 x 1.8 cm, volume 3.4 mL. A 1.5 cm benign, simple dominant follicle is incidentally noted. This requires no imaging follow-up. US/US pelvic and transvaginal IMPRESSION: Multiple nabothian cysts are seen within the cervix. The examination is otherwise unremarkable.
== END 2023-07-29 14:04 | disposition home or self-care (01) ==
LOC: HO.US 14:03
PROVIDERS: PCP Nurse Practitioner Primary Care; Visit Provider Obstetrics & Gynecology
DX: N93.9 Abnormal uterine and vaginal bleeding, unspecified (principal)
CPT/HCPCS: 76830; 76856

== ENCOUNTER 2023-11-09 13:02 | Outpatient (REF) | payer MEDICAID, SELFPAY ==
[2023-11-09 17:02] LABS: TSH reflex Free T4 0.16 uIU/mL (0.32-4.0)
[2023-11-09 18:56] LABS: Free T4 (Free Thyroxine) 1.09 ng/dL (0.71-1.85)
== END 2023-11-09 13:03 | disposition home or self-care (01) ==
LOC: HO.HHCL 13:02
PROVIDERS: Visit Provider Nurse Practitioner Primary Care
DX: R94.6 Abnormal results of thyroid function studies (principal)
CPT/HCPCS: 36415; 84439; 84443

== ENCOUNTER 2023-11-20 00:53 | Inpatient (IN) | payer MEDICAID, SELFPAY ==
[2023-11-20] VITALS (10 sets, daily range): BP systolic 117–144; BP diastolic 56–77; PULSE 77–113; RESP 15–20; TEMP 36.2–37.2; O2SAT 96–100; BMI 27.6
--- NOTE | ~2023-11-20 | CT_ITS ---
EXAMINATION: CT ABDOMEN AND PELVIS WITHOUT CONTRAST CLINICAL INFORMATION: Right flank pain. Right lower quadrant pain. COMPARISON: None available. TECHNIQUE: Multidetector volumetric imaging was performed from the superior aspect of the liver through the pubic symphysis. Sagittal and coronal reformatted images were obtained on the technologist's workstation. This CT examination was performed using dose optimization techniques as appropriate, variously including the following: *Automated exposure control *Adjustment of mA and/or kV according to patient size (this includes techniques or standardized protocols for targeted exams where dose is matched to indication/reason for exam; i.e. extremities or head) *Use of iterative reconstruction technique DLP: 486 mGy-cm FINDINGS: LUNG BASES: There is minimal right middle lobe scarring. LIVER, GALLBLADDER, AND BILIARY TREE: The liver is normal in size, shape, and attenuation. No focal hepatic lesion or biliary ductal dilatation is present. The gallbladder is unremarkable with no evidence of radiopaque gallstones, gallbladder wall thickening, or obvious pericholecystic inflammatory changes. PANCREAS: Unremarkable. SPLEEN: Unremarkable. ADRENAL GLANDS: Unremarkable. KIDNEYS AND URETERS: The kidneys are normal in size and position. There is a 9 mm calculus lower pole left kidney. There are also 1 to 2 mm calculi mid and lower poles of the left kidney. There is no hydronephrosis. There is a 1.4 cm cyst upper pole left kidney. BLADDER: Unremarkable. GASTROINTESTINAL TRACT: There has been a prior gastric sleeve procedure. There are scattered diverticula throughout the colon without diverticulitis. The appendix extends into the medial right pelvis. The appendix is dilated up to 1.4 cm with multiple small appendicoliths and periappendiceal infiltration. ABDOMINAL WALL: No significant hernia is appreciated. LYMPH NODES: Normal. VASCULAR: Unremarkable. PELVIC VISCERA: Unremarkable. OSSEOUS STRUCTURES: Unremarkable. CT/CT abdomen pelvis wo IV con IMPRESSION: 1. Acute appendicitis. 2. Left nephrolithiasis without hydronephrosis. 3. Diverticulosis without diverticulitis. 4. Prior gastric sleeve procedure. Fleischner guidelines were followed.
--- NOTE | 2023-11-20 01:16 | ED.FEMALEGU ---
HPI - Female Genitourinary General Chief complaint: Urogenital-Female Stated complaint: Abd pain Time Seen by Provider: 11/20/23 01:08 Source: patient, old records reviewed and range aide Mode of arrival: ambulatory Limitations: no limitations History of Present Illness HPI Narrative: 53 yo female with PMH of AUB, anemia, HTN, kidney stones here with c/o suprapubic pain and RLQ pain with dysuria starting abruptly yesterday AM and worsening with nausea no fevers. She took advil yesterday with some relief. MD elicited complaint: dysuria and other (abdominal pain) Onset (ago): day(s) (1) Location of symptoms: suprapubic and RLQ Severity: moderate Quality of pain: aching Consistency: constant Vaginal bleeding: none Urinary symptoms: Dysuria Exacerbating factors: urination Relieving factors: none Associated symptoms: loss of appetite and nausea Related Data Home Medications Medication Instructions Recorded Confirmed acetaminophen 500 mg tablet 500 mg PO Q6H PRN Pain 12/20/20 06/17/23 (Tylenol Extra Strength) lisinopril 5 mg tablet 5 mg PO DAILY 12/20/20 06/17/23 duloxetine 20 mg capsule,delayed 1 cap PO DAILY 06/15/22 06/17/23 release (Cymbalta) Previous Rx's Medication Instructions Recorded tranexamic acid 650 mg tablet 1,300 mg (2 x 650 mg) PO TID 5 08/19/23 days #30 tabs Allergies Allergy/AdvReac Type Severity Reaction Status Date / Time morphine AdvReac Anxiety Verified 11/20/23 01:04 Review of Systems Review of Systems: Constitutional : No Weight loss, No Fever, No Chills ENT/Mouth : No sore throat, No Rhinorrhea Eyes: No Swelling, No Redness Cardiovascular : No Chest Pain, No SOB, NoEdema Respiratory : No Cough, No Sputum, No Wheezing Gastrointestinal : Positive Nausea, Positive Vomiting, no Diarrhea, positive abdominal Pain, No Hematochezia, No Melena Genitourinary : pos Dysuria, No Urinary Frequency, No Hematuria, No Urgency Musculoskeletal : No joint pain, No Myalgias, No Joint Swelling Skin : No Skin Lesions, No rash Neuro : No Weakness, No Numbness, No Dizziness, No Headache Psych : No Anxiety/Panic, No Depression Heme/Lymph: No Bruising, No Lymphadenopathy Endocrine : No Polyuria, No Polydipsia All other systems reviewed and are negative. [facility] Past Medical History Attestation statement: The following information was validated with the patient. Source: old records reviewed Medical History (Updated 11/20/23 @ 03:01 by Carolyn Fitzpatrick DO) Iron deficiency anemia Kidney stones HTN (hypertension) Anemia Benign essential hypertension Surgical History (Updated 11/20/23 @ 03:00 by Carolyn Fitzpatrick DO) S/P panniculectomy Tubal ligation status History of surgery on arm Delivery by section Hx of bariatric surgery Family History Family History Mother Colon cancer Diabetes Sister Lupus Father Diabetes Hypertension Unknown Breast cancer Social History Social History Household Members: Spouse Housing: Apartment Are you a primary clinical care manager to a significant other at home: No Do you presently have visiting nurse or other home services: No Alcohol intake: former Patient Tobacco Use Status: Never used Tobacco Smoked in Last 30 Days: No Use of substances other than those prescribed or required for medical reasons: No Advance Directives: No Advance Directives Information Provided: No service: No Current occupational status: unemployed Physical Exam Vital Signs: Vital Signs: Last Vital Signs Temp 99 F 11/20/23 03:01 Pulse 93 11/20/23 03:01 Resp 16 11/20/23 03:01 BP 117/60 11/20/23 03:01 Pulse Ox 98 11/20/23 03:01 O2 Del Method Room Air 11/20/23 03:01 BMI result Body Mass Index 27.6 Appearance: Alert. Oriented X3. No acute distress. Eyes: Pupils equal, round and reactive to light. ENT: Pharynx normal. Neck: Normal inspection. Neck supple. CVS: Normal heart rate and rhythm. Pulses normal. Respiratory: No respiratory distress. Breath sounds normal. Abdomen: Soft and moderate RLQ pain no rebound Skin: Skin warm and dry. Normal skin color. Normal skin turgor. Extremities: No lower extremity edema. No calf ttp Neuro: Oriented X 3. No motor deficit. No sensory deficit. Course Course Course Narrative: normal labs, afebrile, normal BP no wbc count will admit and start on zosyn Medications Administered Discontinued Medications Generic Name Dose Route Start Last Admin Trade Name Freq PRN Reason Stop Dose Admin Hydromorphone HCl 0.5 mg 11/20/23 01:39 11/20/23 02:16 Hydromorphone Hcl 0.5 Mg/0.5 Ml Syringe IVPUSH 11/20/23 01:40 0.5 mg ONCE ONE Administration Protocol Sodium Chloride 1,000 mls @ 999 mls/hr 11/20/23 01:45 11/20/23 02:25 Ns IV 11/20/23 02:45 999 mls/hr .Q1H1M IGLESIA Administration Ondansetron HCl 4 mg 11/20/23 01:38 11/20/23 02:16 Ondansetron Hcl 4 Mg/2 Ml Vial IVPUSH 11/20/23 01:39 4 mg ONCE ONE Administration Medical Decision Making Medical Decision Making [facility] Narrative: 53 yo female with PMH of AUB, anemia, HTN, kidney stones here with c/o suprapubic and RLQ pain with associated nausea and dysuria she has had gastric bypass 5 years ago in [place] at this time will obtain labs, CT scan for renal colic or appendicitis, IV dilaudid for pain. Differential Diagnosis Differential Diagnoses: The differential diagnosis associated with the presentation includes renal colic, UTI, appendicitis Admission/Observation Consideration of admission/observation: Escalation of care including admission/observation considered will admit for acute appendicitis Consult Healthcare Provider Management of the patient was discussed with: [employer] (Dr. Law to admit) Lab Data [facility] Lab Attestation statement: I reviewed the patient's lab results. 11/20/23 01:22 11/20/23 01:22 Labs: Lab Results 11/20/23 Range/Units 01:22 WBC 10.4 (4.8-10.8) X10*3/uL RBC 4.56 (4.20-5.50) X10*6/uL Hgb 13.7 (12.0-16.0) g/dl Hct 41.2 (37.0-47.0) % MCV 90.4 (80.0-98.0) fL MCH 30.0 (27.0-33.0) pg MCHC 33.3 (31.0-35.0) g/dl RDW 12.2 (11.0-16.0) % Plt Count 327 (160-400) X10*3/uL MPV 9.7 (9.4-12.3) fL Immature Gran % (Auto) 0.3 (0.0-0.4) % Neut % (Auto) 74.4 H (45-73) % Lymph % (Auto) 16.4 L (20-40) % Greene % (Auto) 7.7 (2-11) % Eos % (Auto) 0.9 (0-4) % Baso % (Auto) 0.3 (0-2) % Lymph # (Auto) 1.7 (1.2-4.9) X10*3/uL Greene # (Auto) 0.8 (0.1-1.2) X10*3/uL Eos # (Auto) 0.1 (0.0-0.4) X10*3/uL Baso # (Auto) 0.0 (0.0-0.2) X10*3/uL Abs Immat Gran (auto) 0.03 (0.00-0.03) X10*3/uL Absolute Neuts (auto) 7.7 (2.0-8.3) x10*3/uL Absolute Nucleated RBC 0.000 (0.0-0.012) X10*3/uL Nucleated RBC % (auto) 0.0 (0.0-0.2) /100WBC Sodium 141 (135-145) mmol/L Potassium 4.2 (3.3-5.1) mmol/L Chloride 104 (96-108) mmol/L Carbon Dioxide 28 (22-29) mmol/L Anion Gap 13 (12-20) BUN 14 (9-16) mg/dL Creatinine 0.76 (0.5-1.4) mg/dL Estim Creat Clear Calc 78.5 Estimated GFR > 60 Random Glucose 111 (60-115) mg/dL Calcium 9.6 D (8.4-10.2) mg/dL Magnesium 2.0 (1.6-2.6) mg/dL Total Bilirubin 0.6 (0.0-1.0) mg/dL Direct Bilirubin 0.2 (0.0-0.5) mg/dL AST 14 (5-31) U/L ALT 10 (0-31) U/L Alkaline Phosphatase 81 (39-117) U/L Total Protein 7.3 (6.5-8.0) g/dL Albumin 4.1 (3.5-5.0) g/dL Lipase 41 (8-78) U/L Urine Color Yellow Urine Appearance Clear Urine pH 5.5 (5.0-9.0) Ur Specific Bridger 1.020 (1.005-1.025) Urine Protein Negative (Neg-Trace) mg/dL Urine Glucose (UA) Negative (Negative) mg/dL Urine Ketones Negative (Negative) mg/dL Urine Blood Negative (Negative) Urine Nitrite Negative (Negative) Ur Leukocyte Esterase Negative (Negative) Urine Test NEGATIVE (NEGATIVE) Independent Interpretation I performed an independent interpretation of an: CT Scan Radiology Impression Discussion of test interpretation with radiology: I have reviewed the radiologist's reading. External Record Review External record reviewed: Inpatient record Critical Care Time Critical Care Time Critical Care Time: Yes Total Critical Care Time: 40 Attestation: improved pain with IV dilaudid, consult to surgery, admission I attest to this time spent taking care of the patient Discharge Plan Discharge Clinical Impression: Abdominal pain Qualifiers: Abdominal location: right lower quadrant Qualified Code(s): R10.31 - Right lower quadrant pain Acute appendicitis Qualifiers: Acute appendicitis type: other Qualified Code(s): K35.890 - Other acute appendicitis without perforation or gangrene Patient Disposition: Admitted As Inpatient
[2023-11-20 01:27] LABS: MANUAL DIFF FLAG NO
[2023-11-20 01:31] LABS: Appearance Urine Clear; Color Urine Yellow; Glucose Urine UA Negative (Negative); Leukocyte Esterase Urine Negative (Negative); Nitrite Urine Negative (Negative); PH 5.5 (5.0-9.0); Urine Blood Negative (Negative); Urine Ketones Negative (Negative); Urine Protein Negative (Neg-Trace)
[2023-11-20 01:33] LABS: UPreg QC Valid YES; Urine Pregnancy NEGATIVE (NEGATIVE)
[2023-11-20 01:35] LABS: Basophils Percent Auto 0.3 % (0-2); Eosinophils Absolute Auto 0.1 X10*3/uL (0.0-0.4); Eosinophils Percent Auto 0.9 % (0-4); Hematocrit 41.2 % (37.0-47.0); Hemoglobin 13.7 g/dl (12.0-16.0); Imm Gran Abs Auto 0.03 X10*3/uL (0.00-0.03); Imm Gran Pct Auto 0.3 % (0.0-0.4); Lymphocytes Absolute Auto 1.7 X10*3/uL (1.2-4.9); Lymphocytes Percent Auto 16.4 % (20-40); Mean Corpuscular HGB Conc 33.3 g/dl (31.0-35.0); Mean Corpuscular Volume 90.4 fL (80.0-98.0); Mean Platelet Volume 9.7 fL (9.4-12.3); Monocytes Absolute Auto 0.8 X10*3/uL (0.1-1.2); Monocytes Percent Auto 7.7 % (2-11); Neutrophils Absolute Auto 7.7 x10*3/uL (2.0-8.3); Neutrophils Percent Auto 74.4 % (45-73); Platelet Count 327 X10*3/uL (160-400); Red Blood Count 4.56 X10*6/uL (4.20-5.50); Red Cell Distribution Width 12.2 % (11.0-16.0); White Blood Count 10.4 X10*3/uL (4.8-10.8)
[2023-11-20 01:44] LABS: Alanine Aminotransferase 10 U/L (0-31); Albumin Level 4.1 g/dL (3.5-5.0); Alkaline Phosphatase 81 U/L (39-117); Anion Gap 13 (12-20); Aspartate Amino Transferase 14 U/L (5-31); Bilirubin Direct 0.2 mg/dL (0.0-0.5); Bilirubin Total 0.6 mg/dL (0.0-1.0); Blood Urea Nitrogen 14 mg/dL (9-16); Calcium 9.6 mg/dL (8.4-10.2); Carbon Dioxide 28 mmol/L (22-29); Chloride 104 mmol/L (96-108); Creatinine Clr Calc Pharmacy 78.5; Estimated Glomerular Filt Rate > 60; Glucose Random 111 mg/dL (60-115); Lipase 41 U/L (8-78); Potassium 4.2 mmol/L (3.3-5.1); Sodium 141 mmol/L (135-145); Total Protein 7.3 g/dL (6.5-8.0)
[2023-11-20] MEDS: ondansetron HCL 4 MG/2 ML VIAL IVPUSH (02:16)
[2023-11-20] MEDS: HYDROmorphone HCl 0.5 MG/0.5 ML SYRINGE IVPUSH (02:16)
[2023-11-20] MEDS: 0.9 % Sodium Chloride 1,000 ML 999 ML IV (02:25)
[2023-11-20] MEDS: Piperacillin Sodium/Tazobactam 3.375 GM in 0.9 % Sodium Chloride 50 ML IV (03:40)
[2023-11-20] MEDS: Acetaminophen 325 MG TABLET 650 MG PO (05:51)
[2023-11-20] MEDS: Lactated Ringers 1,000 ML 80 ML IVCONT (06:27)
--- NOTE | 2023-11-20 06:27 | PC.NURSE ---
delay in ivf and abx administration as iv infiltrated pt difficult stick. 22g R forearm established after multiple tries by this RN and elle rollins. iv placed by dr. reynoso. LR infusing now. pt reports 6/10 pain; states she'll wait a little longer before recieving another dose of dilaudid. nad. call scott within reach.
[2023-11-20] MEDS: 0.9 % Sodium Chloride Flush 3 ML SYRINGE IVFLUSH (07:59)
--- NOTE | 2023-11-20 08:01 | PC.NURSE ---
Addendum entered by Stephanie Mtz 11/20/23 08:44: LR not infusing via access d/t pump being turned off. LR restarted @ 80mls/hr at this time. Original Note: this RN resumed care of pt at this time. vss and up to date. pt c/o 01/11 RLQ pain associated w/ nausea. denies any episodes of vomiting. pt verbalizing pain level decreased post tylenol administration. no sob/wob noted. respirations even and unlabored. resting comfortably in no apparent distress. pt waiting for bed assignment upstairs at this time. call scott placed within reach.
--- NOTE | 2023-11-20 08:15 | PC.NURSE ---
pt speaking w/ general surgery at this time.
--- NOTE | 2023-11-20 08:27 | PHA.MEDREC ---
Pharmacy Consult ? Medication Reconciliation Pharmacy has completed the medication reconciliation. spoke with patient to confirm medications.
--- NOTE | 2023-11-20 08:41 | P.HPGS_ITS ---
History of Present Illness History of Present Illness Date of Service: 11/23/23 Chief complaint: Abd pain Narrative: Khadar Avendano is a 53 year old female here in the ED because of right lower quadrant pain. This started at about 6-7 a.m. yesterday. She says that this has been constant. She had a little bit of loose stools yesterday. She says the pain persisted throughout the day so she decided to come to the ER last night She denies any similar episodes in the past. She denies any fever at home although felt febrile last night. She denies any vomiting. She has a history of sleeve gastrectomy many years ago and x3. She had panniculectomy as well after sleeve gastrectomy. Review of Systems Constitutional: Constitutional: Denies chills and Denies fever(s) Cardiovascular: Cardiovascular: Denies chest pain, Denies dyspnea and Denies dyspnea on exertion Respiratory: Respiratory: Denies cough, Denies dyspnea and Denies dyspnea on exertion Gastrointestinal: Gastrointestinal: Denies hematochezia and Denies change in bowel habits Genitourinary: Genitourinary: Denies hematuria Musculoskeletal: Musculoskeletal: Denies back pain and Denies limited range of motion Neurologic: Denies focal weakness and Denies convulsions Psychiatric: Psychiatric: Denies depression and Denies mood swings PMFSH Past Medical History Medical History (Updated 11/20/23 @ 03:01 by Carolyn Fitzpatrick DO) Iron deficiency anemia Kidney stones HTN (hypertension) Anemia Benign essential hypertension Family History Family History Mother Colon cancer Diabetes Sister Lupus Father Diabetes Hypertension Unknown Breast cancer Surgical History Surgical History (Updated 11/20/23 @ 03:00 by Carolyn Fitzpatrick DO) S/P panniculectomy Tubal ligation status History of surgery on arm Delivery by section Hx of bariatric surgery Social History Social History Household Members: Spouse Housing: Apartment Are you a primary director critical care to a significant other at home: No Do you presently have visiting nurse or other home services: No Alcohol intake: former Patient Tobacco Use Status: Never used Tobacco service: No Current occupational status: unemployed Meds Allergies Allergy/AdvReac Type Severity Reaction Status Date / Time morphine AdvReac Anxiety Verified 11/20/23 01:04 Active Medications: Current Medications Hydromorphone HCl (Hydromorphone Hcl 0.5 Mg/0.5 Ml Syringe) 0.5 mg IVPUSH Q4H PRN; Protocol PRN Reason: Pain, Severe (Pain Scale 7-10) Piperacillin Sod/Tazobactam (Sod 3.375 gm/ Sodium Chloride) 50 mls @ 100 mls/hr IV Q6H [facility] Lactated Ringer's (Lr) 1,000 mls @ 80 mls/hr IVCONT .[id number] [facility] Last Admin: 11/20/23 06:27 Dose: 80 mls/hr Ondansetron HCl (Ondansetron Hcl 4 Mg/2 Ml Vial) 4 mg IVPUSH Q8H PRN PRN Reason: nausea Sodium Chloride (0.9 % Sodium Chloride Flush 3 Ml Syringe) 3 ml IVFLUSH QSHIFT [facility] Last Admin: 11/20/23 07:59 Dose: 3 ml Home Medications Medication Instructions Recorded Confirmed Last Taken Type acetaminophen 500 mg tablet 500 mg PO Q6H PRN Pain 12/20/20 11/20/23 Unknown History (Tylenol Extra Strength) lisinopril 5 mg tablet 5 mg PO DAILY 12/20/20 11/20/23 06/20/21 History duloxetine 20 mg capsule,delayed 1 cap PO DAILY 06/15/22 11/20/23 Unknown History release (Cymbalta) tranexamic acid 650 mg tablet 1,300 mg PO TID PRN menstruation 11/20/23 11/20/23 Unknown History Physical Exam Vital Signs: Vital Signs: Last Vital Signs Temp 99.0 F 11/20/23 07:57 Pulse 93 11/20/23 07:57 Resp 16 11/20/23 07:57 BP 122/71 11/20/23 07:57 Pulse Ox 97 11/20/23 07:57 O2 Del Method Room Air 11/20/23 07:57 BMI result Body Mass Index 27.6 Const: General: comfortable and no acute distress Orientation/consciousness: patient oriented x3 Neck: Neck: Yes no lymphadenopathy Resp: Auscultation: clear to auscultation bilaterally Cardio: Rhythm: regular rhythm GI: Other: Significant tenderness on right lower quadrant with a little bit of guarding Palpation (GI): Soft to palpation, Tenderness to palpation present (GI) and no guarding Neuro: General: patient oriented x3 Results Results Labs: Short CBC 11/20/23 Range/Units 01:22 WBC 10.4 (4.8-10.8) X10*3/uL Hgb 13.7 (12.0-16.0) g/dl Hct 41.2 (37.0-47.0) % Plt Count 327 (160-400) X10*3/uL BMP 11/20/23 01:22 Sodium 141 Potassium 4.2 Chloride 104 Carbon Dioxide 28 BUN 14 Creatinine 0.76 Calcium 9.6 D Liver Function 11/20/23 Range/Units 01:22 Total Bilirubin 0.6 (0.0-1.0) mg/dL Direct Bilirubin 0.2 (0.0-0.5) mg/dL AST 14 (5-31) U/L ALT 10 (0-31) U/L Alkaline Phosphatase 81 (39-117) U/L Albumin 4.1 (3.5-5.0) g/dL Urine 11/20/23 Range/Units 01:22 Urine Color Yellow Urine Appearance Clear Urine pH 5.5 (5.0-9.0) Ur Specific [place] 1.020 (1.005-1.025) Urine Protein Negative (Neg-Trace) mg/dL Urine Glucose (UA) Negative (Negative) mg/dL Urine Test NEGATIVE (NEGATIVE) Abdomen CT scan report/results: report reviewed and image reviewed CT scan - pelvis: report reviewed and image reviewed Additional studies: Laboratory Results WBC 10.4 X10*3/uL (4.8-10.8) 11/20/23 01:22 RBC 4.56 X10*6/uL (4.20-5.50) 11/20/23 01:22 Hgb 13.7 g/dl (12.0-16.0) 11/20/23 01:22 Hct 41.2 % (37.0-47.0) 11/20/23 01:22 MCV 90.4 fL (80.0-98.0) 11/20/23 01:22 MCH 30.0 pg (27.0-33.0) 11/20/23 01: MCHC 33.3 g/dl (31.0-35.0) 11/20/23 01:22 RDW 12.2 % (11.0-16.0) 11/20/23 01:22 Plt Count 327 X10*3/uL (160-400) 11/20/23 01:22 MPV 9.7 fL (9.4-12.3) 11/20/23 01:22 Immature Gran % (Auto) 0.3 % (0.0-0.4) 11/20/23 01:22 Neut % (Auto) 74.4 % (45-73) H 11/20/23 01:22 Lymph % (Auto) 16.4 % (20-40) L 11/20/23 01:22 [facility] % (Auto) 7.7 % (2-11) 11/20/23 01:22 Eos % (Auto) 0.9 % (0-4) 11/20/23 01:22 Baso % (Auto) 0.3 % (0-2) 11/20/23 01:22 Lymph # (Auto) 1.7 X10*3/uL (1.2-4.9) 11/20/23 01:22 [facility] # (Auto) 0.8 X10*3/uL (0.1-1.2) 11/20/23 01:22 Eos # (Auto) 0.1 X10*3/uL (0.0-0.4) 11/20/23 01:22 Baso # (Auto) 0.0 X10*3/uL (0.0-0.2) 11/20/23 01:22 Abs Immat Gran (auto) 0.03 X10*3/uL (0.00-0.03) 11/20/23 01:22 Absolute Neuts (auto) 7.7 x10*3/uL (2.0-8.3) 11/20/23 01:22 Absolute Nucleated RBC 0.000 X10*3/uL (0.0-0.012) 11/20/23 01:22 Nucleated RBC % (auto) 0.0 /100WBC (0.0-0.2) 11/20/23 01:22 Sodium 141 mmol/L (135-145) 11/20/23 01:22 Potassium 4.2 mmol/L (3.3-5.1) 11/20/23 01:22 Chloride 104 mmol/L (96-108) 11/20/23 01:22 Carbon Dioxide 28 mmol/L (22-29) 11/20/23 01:22 Anion Gap 13 (12-20) 11/20/23 01:22 BUN 14 mg/dL (9-16) 11/20/23 01:22 Creatinine 0.76 mg/dL (0.5-1.4) 11/20/23 01:22 Estim Creat Clear Calc 78.5 11/20/23 01:22 Estimated GFR > 60 11/20/23 01:22 Random Glucose 111 mg/dL (60-115) 11/20/23 01:22 Lactic Acid 1.0 mmol/L (0.5-2.0) 11/20/23 03:27 Calcium 9.6 mg/dL (8.4-10.2) D 11/20/23 01:22 Magnesium 2.0 mg/dL (1.6-2.6) 11/20/23 01:22 Total Bilirubin 0.6 mg/dL (0.0-1.0) 11/20/23 01:22 Direct Bilirubin 0.2 mg/dL (0.0-0.5) 11/20/23 01:22 AST 14 U/L (5-31) 11/20/23 01:22 ALT 10 U/L (0-31) 11/20/23 01:22 Alkaline Phosphatase 81 U/L (39-117) 11/20/23 01:22 Total Protein 7.3 g/dL (6.5-8.0) 11/20/23 01:22 Albumin 4.1 g/dL (3.5-5.0) 11/20/23 01:22 Lipase 41 U/L (8-78) 11/20/23 01:22 Urine Color Yellow 11/20/23 01:22 Urine Appearance Clear 11/20/23 01:22 Urine pH 5.5 (5.0-9.0) 11/20/23 01:22 Ur Specific [place] 1.020 (1.005-1.025) 11/20/23 01:22 Urine Protein Negative mg/dL (Neg-Trace) 11/20/23 01:22 Urine Glucose (UA) Negative mg/dL (Negative) 11/20/23 01:22 Urine Ketones Negative mg/dL (Negative) 11/20/23 01:22 Urine Blood Negative (Negative) 11/20/23 01:22 Urine Nitrite Negative (Negative) 11/20/23 01:22 Ur Leukocyte Esterase Negative (Negative) 11/20/23 01:22 Urine Test NEGATIVE (NEGATIVE) 11/20/23 01:22 Impressions Abdomen/Pelvis CT 11/20/23 01:20 IMPRESSION: 1. Acute appendicitis. 2. Left nephrolithiasis without hydronephrosis. 3. Diverticulosis without diverticulitis. 4. Prior gastric sleeve procedure. Fleischner guidelines were followed. Assessment and Plan (1) Acute appendicitis: Qualifiers: Acute appendicitis type: other Qualified Code(s): K35.890 - Other acute appendicitis without perforation or gangrene Status: Acute She has had right lower quadrant pain since yesterday. I have reviewed her CAT scan and this shows some inflammatory changes surrounding the appendix along with some dilatation. This is suggestive of acute appendicitis. There is an appendicolith seen. I therefore explained to her it may be best to proceed with appendectomy. I explained the technique of laparoscopic appendectomy and possible open appendectomy. I reviewed the risks including but not limited to bleeding, infections, bowel injury, postop pain, poor healing, inherent risks of anesthesia including blood clots, pneumonia, as well as the benefits and alternatives She understands and wants to proceed I also explained to her what to expect postoperatively. Quality Stroke Does the patient have a stroke diagnosis?: No VTE Prior VTE?: No VTE Risk Level:: Medical - moderate - high VTE Device Contraindication: N/A - Device Ordered VTE Drug Contraindication: N/A - Med Ordered Procedures Date of Service Date of Service: 11/23/23
--- NOTE | 2023-11-20 09:38 | PC.NURSE ---
report given to TARYN Cerda in OR at this time.
--- NOTE | 2023-11-20 10:05 | PC.NURSE ---
pt being transported to OR at this time.
--- NOTE | 2023-11-20 11:19 | P.OP_ITS ---
Operative Note Operative Note Date of Service: 11/20/23 Narrative: Preop diagnosis: Acute appendicitis Postop diagnosis: Acute appendicitis, extensive adhesions Procedure: Laparoscopic appendectomy with extensive lysis of adhesions Surgeon: Edwin Law MD The patient is a 53-year-old female with right lower quadrant pain and a CAT scan showing acute appendicitis. She understood the technique of laparoscopic appendectomy. She was aware of the risks, benefits, and alternatives She was brought to the operating room. She was placed supine under general anesthesia via endotracheal tube. A Edwards catheter was inserted. The abdomen was prepped and draped in the usual sterile fashion. A surgical time-out was done. The patient was receiving scheduled IV Zosyn The patient had a previous sleeve gastrectomy and panniculectomy so the umbilicus was very low in the abdomen. I therefore made my incision above the level of the umbilicus using blade 15. This carried down through the full- thickness of the skin to the fascia. The fascia was incised. The peritoneum wa s entered. Through this incision, a Pj port was introduced. Pneumoperitoneum was introduced to a pressure of 15 mm Hg. From here on there is the procedure was done under vision with the laparoscope. With laparoscopic visualization using the 10 mm scope, noticed large amounts of adhesions in the lower abdomen. These appeared to be hard as well to the fundus of the uterus from her previous multiple C-sections. I therefore had to position my other ports higher. I made an incision on the area just lateral to the umbilicus using blade 15. Through this incision a 5/12 mm port was introduced. A 5 mm port was introduced in the left upper quadrant. The patient was placed in a head down and [id number] position. This allowed me to extensive lysis of adhesions of the lower abdomen. This took particular period of time because of the amount of adhesions. This involved lysing the adhesions off of the uterus as well using the LigaSure. Once we had released all these adhesions, we are able to therefore have good exposure of the pelvis and the right lower quadrant. I proceeded to trace the cecum and by doing so was able to visualize the appendix. The appendix was markedly event as well to the low pelvic sidewall on the right side. I had to do careful blunt dissection with the graspers to release this. Eventually this was released and I was able to put the index on stretch. I applied a grasper at the distal 3rd to put this on stretch and this allowed us full visualization of the entire appendix. The distal half of the appendix was markedly inflamed, and very indurated and thickened. I was able to mobilize the base of the appendix. I used a [place] dissector to create a mesenteric window across the base. I then proceeded to position a LUZMARIA 30 mm stapler across the base. This was fired and the appendix was transected. I then divided the attached appendix using the LigaSure. The appendix was retrieved through an endobag through the umbilical incision. I reinserted all ports and re-insufflated I observed all 4 quadrants. There was some adhesions well on the upper abdomen but were away from the ports. There was no bleeding from the area of dissection and the pelvis. There was no evidence of any bowel injury I then proceeded to excision of the omentum to over lie the right lower quadrant I desufflated through the port sites. I removed all ports. I closed the fascia of the umbilical incision with a [id number] Polysorb 3-0 stitch Skin closure was achieved on all incisions using Polysorb 4-0 subcuticular running sutures Steri-Strips and dressings were applied All incisions were infiltrated with Marcaine 0.5% for postop analgesia. The procedure was then completed The patient tolerated the procedure well. There were no immediate complications. Initial and final counts of sponges and instruments were correct. Estimated blood loss was about 25 cc The patient was extubated without difficulty and transferred to the recovery room with stable vital signs.
--- NOTE | 2023-11-20 11:26 | P.CONAN_ITS ---
[facility] Active Problems Active Problems: All Active Problems (Updated 11/20/23 @ 03:01 by Carolyn Fitzpatrick DO) Acute appendicitis (Acute) Abdominal pain (Acute) Abnormal uterine bleeding (Acute) Encounter for IUD removal (Acute) Encounter for IUD insertion (Acute) Abnormal thyroid blood test (Acute) Menorrhagia (Acute) Anemia (Acute) Past Medical History Medical History (Updated 11/20/23 @ 03:01 by Carolyn Fitzpatrick DO) Iron deficiency anemia Kidney stones HTN (hypertension) Anemia Benign essential hypertension Family History Family History Mother Colon cancer Diabetes Sister Lupus Father Diabetes Hypertension Unknown Breast cancer Family history of problems with anesthesia: No Surgical History Surgical History (Updated 11/20/23 @ 03:00 by Carolyn Fitzpatrick DO) S/P panniculectomy Tubal ligation status History of surgery on arm Delivery by section Hx of bariatric surgery History of Problems with Anesthesia: No Social History Social History Household Members: Spouse Housing: Apartment Are you a primary adult care manager to a significant other at home: No Do you presently have visiting nurse or other home services: No Alcohol intake: former Patient Tobacco Use Status: Never used Tobacco Smoked in Last 30 Days: No Use of substances other than those prescribed or required for medical reasons: No Advance Directives: No Advance Directives Information Provided: No Nutrition Risks: No Nutritional Risk service: No Current occupational status: unemployed Meds Allergies Allergy/AdvReac Type Severity Reaction Status Date / Time morphine AdvReac Anxiety Verified 11/20/23 01:04 Active Medications: Current Medications Hydromorphone HCl (Hydromorphone Hcl 0.5 Mg/0.5 Ml Syringe) 0.5 mg IVPUSH Q4H PRN; Protocol PRN Reason: Pain, Severe (Pain Scale 7-10) Piperacillin Sod/Tazobactam (Sod 3.375 gm/ Sodium Chloride) 50 mls @ 100 mls/hr IV Q6H [facility] Lactated Ringer's (Lr) 1,000 mls @ 80 mls/hr IVCONT .[id number] [facility] Last Admin: 11/20/23 06:27 Dose: 80 mls/hr Ondansetron HCl (Ondansetron Hcl 4 Mg/2 Ml Vial) 4 mg IVPUSH Q8H PRN PRN Reason: nausea Sodium Chloride (0.9 % Sodium Chloride Flush 3 Ml Syringe) 3 ml IVFLUSH QSHIFT [facility] Last Admin: 11/20/23 07:59 Dose: 3 ml Home Medications Medication Instructions Recorded Confirmed Last Taken Type acetaminophen 500 mg tablet 500 mg PO Q6H PRN Pain 12/20/20 11/20/23 Unknown History (Tylenol Extra Strength) lisinopril 5 mg tablet 5 mg PO DAILY 12/20/20 11/20/23 06/20/21 History duloxetine 20 mg capsule,delayed 1 cap PO DAILY 06/15/22 11/20/23 Unknown History release (Cymbalta) tranexamic acid 650 mg tablet 1,300 mg PO TID PRN menstruation 11/20/23 11/20/23 Unknown History Exam Height,Weight and Vital Signs: Height 5 ft 2 in Weight 68.4 kg Last Vital Signs Temp 98.6 F 11/20/23 11:25 Pulse 98 11/20/23 11:25 Resp 15 11/20/23 11:25 BP 140/58 H 11/20/23 11:25 Pulse Ox 100 11/20/23 11:25 O2 Del Method Nasal Cannula with Capnography 11/20/23 11:25 O2 Flow Rate 2 11/20/23 11:25 Pertinent Lab Results Pertinent Lab Results: Laboratory Tests 11/20/23 11/20/23 11/20/23 01:22 03:27 09:53 WBC 10.4 RBC 4.56 Hgb 13.7 Hct 41.2 MCV 90.4 MCH 30.0 MCHC 33.3 RDW 12.2 Plt Count 327 MPV 9.7 Immature Gran % (Auto) 0.3 Neut % (Auto) 74.4 H Lymph % (Auto) 16.4 L [place] % (Auto) 7.7 Eos % (Auto) 0.9 Baso % (Auto) 0.3 Lymph # (Auto) 1.7 [place] # (Auto) 0.8 Eos # (Auto) 0.1 Baso # (Auto) 0.0 Abs Immat Gran (auto) 0.03 Absolute Neuts (auto) 7.7 Absolute Nucleated RBC 0.000 Nucleated RBC % (auto) 0.0 Sodium 141 Potassium 4.2 Chloride 104 Carbon Dioxide 28 Anion Gap 13 BUN 14 Creatinine 0.76 Estim Creat Clear Calc 78.5 Estimated GFR > 60 Random Glucose 111 Lactic Acid 1.0 Calcium 9.6 D Magnesium 2.0 Total Bilirubin 0.6 Direct Bilirubin 0.2 AST 14 ALT 10 Alkaline Phosphatase 81 Total Protein 7.3 Albumin 4.1 Lipase 41 Urine Color Yellow Urine Appearance Clear Urine pH 5.5 Ur Specific [place] 1.020 Urine Protein Negative Urine Glucose (UA) Negative Urine Ketones Negative Urine Blood Negative Urine Nitrite Negative Ur Leukocyte Esterase Negative Urine Test NEGATIVE Blood Type O Positive Antibody Screen NEGATIVE Airway Mallampati Class: II TM Dist: >3cm Neck ROM: Full Assessment and Plan Assessment Anesthesia Assessment: Anesthesia Plan Discussed and Chart Reviewed Final Anesthetic Review Family History of Problems with Anesthesia: No History of Problems with Anesthesia: No NPO: Yes ASA Class: II and Emergency Final Preanesthetic Review: No Changes in Pt Med Stat, Meds/Allgs Chart Reviewed, Consent Obtained/Reviewed and Anes Risks/Benef Reviewed Patient Risk: Intermediate Procedure Risk: Intermediate Anesthetic Plan Anesthetic Plan: GA Disposition: Standard PACU
--- NOTE | 2023-11-20 15:41 | PM.EVENT ---
Event Note Date of Service: 11/20/23 Event Note: seen on PM rounds she says she feels well tolerating diet paoin well controlled abd soft and benign stable VS she wants to go home clinically doing very well so will dc home instructions reinforced with pt ffup in office Time Spent With Patient Time: Total time managing care of this patient today ____ minutes.
--- NOTE | 2023-11-22 08:27 | HO.POSTANES ---
Post Anesthesia Evaluation Post Anesthesia Evaluation Date of Service: 11/22/23 Anesthesia: General Endotracheal-GETA Mental Status: Awake Pain Control: Satisfactory Nausea/Vomiting: None Hydration: Adequate Anesthesia-Related Issues: No Anes. Related Issues
--- NOTE | 2023-11-24 11:15 | PM.DS ---
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 Her CAT scan was suggestive of acute appendicitis. She underwent laparoscopic appendectomy later that morning. She tolerated procedure well. She had a very inflamed erythematous appendix. She was started on regular diet right after the procedure She tolerated this well. She had very good pain control. She was therefore discharged in the afternoon of 11/20/2023. Time Attestation Discharge coordination time: Less than 30 minutes Quality: Safe Use of Opioids Does Pt have an Active Cancer Diagnosis on the Problem List?: No Quality: Stroke Does the patient have a stroke diagnosis?: No Physical Exam Vital Signs: Vital Signs: Last Vital Signs Temp 97.5 F 11/20/23 15:15 Pulse 95 11/20/23 15:15 Resp 18 11/20/23 15:15 BP 130/70 11/20/23 15:15 Pulse Ox 97 11/20/23 15:15 O2 Del Method Room Air 11/20/23 15:15 O2 Flow Rate 2 11/20/23 11:25 BMI result Body Mass Index 27.6 Const: General: comfortable and no acute distress Orientation/consciousness: patient oriented x3 Neck: Neck: Yes no lymphadenopathy Resp: Auscultation: clear to auscultation bilaterally Cardio: Rhythm: regular rhythm GI: Other: Dressings dry Palpation (GI): Soft to palpation, Tenderness to palpation present (GI) (Appropriate tenderness on incisions) and no guarding Neuro: General: patient oriented x3 DS: Data Data Completed and Pending Completed studies during hospitalization [Text1]: Procedures Release Peritoneum, Percutaneous Endoscopic Approach (11/20/23) Resection of Appendix, Percutaneous Endoscopic Approach (11/20/23) Pending studies at discharge: Pending at discharge 11/20/23 11:06 Surgical [PTH] Routine Labs on day of discharge: Preliminary micro results at discharge 11/20/23 03:27 Blood Culture - Preliminary Blood - Venous No growth after 48 hours. 11/20/23 03:29 Blood Culture - Preliminary Blood - Venous No growth after 48 hours. Laboratory Results WBC 10.4 X10*3/uL (4.8-10.8) 11/20/23 01:22 RBC 4.56 X10*6/uL (4.20-5.50) 11/20/23 01:22 Hgb 13.7 g/dl (12.0-16.0) 11/20/23 01:22 Hct 41.2 % (37.0-47.0) 11/20/23 01:22 MCV 90.4 fL (80.0-98.0) 11/20/23 01:22 MCH 30.0 pg (27.0-33.0) 11/20/23 01: MCHC 33.3 g/dl (31.0-35.0) 11/20/23 01: RDW 12.2 % (11.0-16.0) 11/20/23 01:22 Plt Count 327 X10*3/uL (160-400) 11/20/23 01:22 MPV 9.7 fL (9.4-12.3) 11/20/23 01:22 Immature Gran % (Auto) 0.3 % (0.0-0.4) 11/20/23 01:22 Neut % (Auto) 74.4 % (45-73) H 11/20/23 01:22 Lymph % (Auto) 16.4 % (20-40) L 11/20/23 01:22 [place] % (Auto) 7.7 % (2-11) 11/20/23 01: Eos % (Auto) 0.9 % (0-4) 11/20/23 01:22 Baso % (Auto) 0.3 % (0-2) 11/20/23 01:22 Lymph # (Auto) 1.7 X10*3/uL (1.2-4.9) 11/20/23 01:22 [place] # (Auto) 0.8 X10*3/uL (0.1-1.2) 11/20/23 01:22 Eos # (Auto) 0.1 X10*3/uL (0.0-0.4) 11/20/23 01:22 Baso # (Auto) 0.0 X10*3/uL (0.0-0.2) 11/20/23 01:22 Abs Immat Gran (auto) 0.03 X10*3/uL (0.00-0.03) 11/20/23 01:22 Absolute Neuts (auto) 7.7 x10*3/uL (2.0-8.3) 11/20/23 01:22 Absolute Nucleated RBC 0.000 X10*3/uL (0.0-0.012) 11/20/23 01:22 Nucleated RBC % (auto) 0.0 /100WBC (0.0-0.2) 11/20/23 01:22 Sodium 141 mmol/L (135-145) 11/20/23 01:22 Potassium 4.2 mmol/L (3.3-5.1) 11/20/23 01:22 Chloride 104 mmol/L (96-108) 11/20/23 01:22 Carbon Dioxide 28 mmol/L (22-29) 11/20/23 01:22 Anion Gap 13 (12-20) 11/20/23 01:22 BUN 14 mg/dL (9-16) 11/20/23 01:22 Creatinine 0.76 mg/dL (0.5-1.4) 11/20/23 01:22 Estim Creat Clear Calc 78.5 11/20/23 01:22 Estimated GFR > 60 11/20/23 01:22 Random Glucose 111 mg/dL (60-115) 11/20/23 01:22 Lactic Acid 1.0 mmol/L (0.5-2.0) 11/20/23 03:27 Calcium 9.6 mg/dL (8.4-10.2) D 11/20/23 01:22 Magnesium 2.0 mg/dL (1.6-2.6) 11/20/23 01:22 Total Bilirubin 0.6 mg/dL (0.0-1.0) 11/20/23 01:22 Direct Bilirubin 0.2 mg/dL (0.0-0.5) 11/20/23 01:22 AST 14 U/L (5-31) 11/20/23 01:22 ALT 10 U/L (0-31) 11/20/23 01:22 Alkaline Phosphatase 81 U/L (39-117) 11/20/23 01:22 Total Protein 7.3 g/dL (6.5-8.0) 11/20/23 01:22 Albumin 4.1 g/dL (3.5-5.0) 11/20/23 01:22 Lipase 41 U/L (8-78) 11/20/23 01:22 Urine Color Yellow 11/20/23 01:22 Urine Appearance Clear 11/20/23 01:22 Urine pH 5.5 (5.0-9.0) 11/20/23 01:22 Ur Specific [place] 1.020 (1.005-1.025) 11/20/23 01:22 Urine Protein Negative mg/dL (Neg-Trace) 11/20/23 01:22 Urine Glucose (UA) Negative mg/dL (Negative) 11/20/23 01:22 Urine Ketones Negative mg/dL (Negative) 11/20/23 01:22 Urine Blood Negative (Negative) 11/20/23 01:22 Urine Nitrite Negative (Negative) 11/20/23 01:22 Ur Leukocyte Esterase Negative (Negative) 11/20/23 01:22 Urine Test NEGATIVE (NEGATIVE) 11/20/23 01:22 Blood Type O Positive 11/20/23 09:53 Antibody Screen NEGATIVE 11/20/23 09:53 Impressions Abdomen/Pelvis CT 11/20/23 01:20 IMPRESSION: 1. Acute appendicitis. 2. Left nephrolithiasis without hydronephrosis. 3. Diverticulosis without diverticulitis. 4. Prior gastric sleeve procedure. Fleischner guidelines were followed. Discharge Plan Discharge Anticipated Discharge Date/Time: 11/21/23 10:00 Patient Disposition: Home, Self-Care Discharge Diagnosis: Acute appendicitis Referrals: Edwin Law MD [Physician] - 2 Weeks Discharge Medications: New oxycodone 5 mg tablet 5 mg PO Q4H PRN (Reason: pain) Qty: 25 0RF Rx Instructions: Partial Fill upon patient request. Continued acetaminophen [Tylenol Extra Strength] 500 mg Tablet 500 mg PO Q6H PRN (Reason: Pain) lisinopril 5 mg Tablet 5 mg PO DAILY duloxetine [Cymbalta] 20 mg capsule,delayed release(DR/EC) 1 cap PO DAILY tranexamic acid 650 mg tablet 1,300 mg PO TID PRN (Reason: menstruation) Rx Instructions: Start 1st day of menses and take it up to 3-5 days of menses. Discharge Orders: Discharge Order (Routine); Ordered 11/20/23 Ordered By: Edwin Law Diet: Advance to usual diet Activity on Discharge: No heavy lifting Stand Alone Forms: Patient Portal Discharge page Activity Restrictions/Additional Instructions: If the incision area is tender, you may apply an ice pack for short intervals (No more than 20 minutes on, followed by at least 20 minutes off). Do not apply heat. Do not use creams, lotions, or topical antibiotics unless instructed to do so by your surgeon. These can cause infection or allergic reaction. No lifting more than 20 lbs Okay to shower after 24 hours Okay to change dressings with gauze or Band-Aid after 24 hours No strenuous activities Call the office for follow-up in 2 weeks - with Dr. Law Call Your Doctor If: -Your temperature exceeds 101.5? F -You experience excessive pain or swelling -You have an unexpected reaction to medication -You have excessive bleeding -You experience continued vomiting/nausea -Your incision begins to separate -Your incision shows signs of infection such as increased redness, swelling, excessive pain, drainage (light blood or clear fluid is normal) or heat Care Plan Goals: Control pain postoperatively Health Concerns: Postop pain Plan of Treatment: Oral pain meds Office follow-up Assessment: Doing well postoperatively Discharge Date/Time: 11/20/23 17:32
== END 2023-11-20 17:32 | disposition home or self-care (01) | DRG 224 ==
LOC: HO.ED 03:01 → HO.EDOVER 03:18 → HO.S3 11:02
PROVIDERS: Admitting Provider Surgery; Emergency Provider Emergency Medicine; PCP Nurse Practitioner Primary Care; Visit Provider Surgery
PROC: 0DTJ4ZZ Resection of Appendix, Percutaneous Endoscopic Approach (ICD-10-PCS; CPT 44970; principal; 2023-11-20 10:00)
DX: K35.890 Other acute appendicitis without perforation or gangrene (principal); K35.80 Unspecified acute appendicitis; Z98.84 Bariatric surgery status; N99.4 Postprocedural pelvic peritoneal adhesions; Z79.899 Other long term (current) drug therapy
CPT/HCPCS: 44970; 49329; 36415; 74176; 80048; 80076; 81003; 81025; 83605; 83690; 83735; 85025; 86850; 86900; 86901; 87040; 88304; 99221; 99285; J0131; J1170; J1596; J1805; J1885; J2250; J2405; J2543; J2704; J2795; J3010; J7120

== ENCOUNTER → 2023-11-20 03:11 | Outpatient (BNV) | payer MEDICAID, SELFPAY | PROVIDERS: Admitting Provider Surgery; Emergency Provider Emergency Medicine; PCP Nurse Practitioner Primary Care; Visit Provider Surgery | DX: K35.890 Other acute appendicitis without perforation or gangrene (principal) | CPT/HCPCS: 44970; 99024; 99222; 99235; 99499 ==

== ENCOUNTER 2023-11-25 13:45 | Outpatient (AMB) | payer MEDICAID, SELFPAY ==
--- NOTE | 2023-11-25 13:51 | A.OFFVIS_ITS ---
Intake Vital Signs 11/25/23 13:57 Height 5 ft 2 in Weight 149 lb 14.629 oz BMI 27.4 BP 120/72 Intake Visit Reasons: Ultrasound follow up Personnel Psychologist Required: Yes Personnel Psychologist Language: Manager Print Name: Gris RAE Information Interpreted: non-clinical & clinical Accompanied by: Self / Same As Patient Allergies morphine Adverse Reaction (Verified 11/25/23 13:58) Anxiety Post menopausal: Yes HPI HPI Comments History of Present Illness Details The patient is presenting for follow-up to discuss the results of her abnormal uterine bleeding workup and options of treatment. The following workup was done.: H&H= 13.7/41.2 Prolactin, hCG, GC and chlamydia were negative. FSH/LH were in the premenopausal range TSH 0.16, normal free T4 Co testing was done in 06/24 was negative. Mammogram was BI-RADS 2 in 02/23 Pelvic ultrasound showed the following: IMPRESSION: Multiple nabothian cysts are seen within the cervix. The examination is otherwise unremarkable. The patient underwent laparoscopic appendectomy few days ago and is doing well postoperative PFSH Medical History Iron deficiency anemia Kidney stones HTN (hypertension) Anemia Benign essential hypertension Surgical History S/P panniculectomy Tubal ligation status History of surgery on arm Delivery by section Hx of bariatric surgery Family History Mother Colon cancer Diabetes Sister Lupus Father Diabetes Hypertension Unknown Breast cancer Social History Household Members: Spouse Housing: Apartment Are you a primary certified caregiver to a significant other at home: No Do you presently have visiting nurse or other home services: No Alcohol intake: former Patient Tobacco Use Status: Never used Tobacco service: No Current occupational status: unemployed Female Reproductive History Menstrual Age of Menarche: 11 Review of Systems Const All systems reviewed & are unremarkable except as noted in HPI and below Reports as per HPI and Reports no additional complaints GI Reports no additional complaints Reports no additional complaints Assessment & Plan Assessment & Plan (1) Abnormal uterine bleeding: Comment: Controlled with Lysteda but with persisitent intermenstrual spotting Code(s): N93.9 - Abnormal uterine and vaginal bleeding, unspecified Plan: Discussed with the patient the results of her workup, will defer EMB since the patient is only few postop from laparoscopic appendectomy. Instructions given the patient to schedule an EMB appointment in 2 weeks (2) Abnormal thyroid blood test: Comment: low TSH, nl FT4 Code(s): R79.89 - Other specified abnormal findings of blood chemistry Plan: Discussed with the patient the results of the low TSH with normal free T4. The patient was referred to endocrinology, appointment scheduled in 02/24 Coding Level of Care Code Est Pt Level 3 (54076) Diagnoses Abnormal uterine bleeding N93.9 Abnormal thyroid blood test R79.89
[2023-11-25 13:57] VITALS: BP 120/72; BMI 27.4
== END 2023-11-25 15:43 | disposition home or self-care (01) ==
LOC: HO.HWS 13:45
PROVIDERS: PCP Nurse Practitioner Primary Care; Visit Provider Obstetrics & Gynecology
DX: N93.9 Abnormal uterine and vaginal bleeding, unspecified (principal); R79.89 Other specified abnormal findings of blood chemistry
CPT/HCPCS: 99213

== ENCOUNTER → 2023-11-25 13:45 | Outpatient (BNVA) | payer MEDICAID, SELFPAY | PROVIDERS: PCP Nurse Practitioner Primary Care; Visit Provider Obstetrics & Gynecology | DX: N93.9 Abnormal uterine and vaginal bleeding, unspecified (principal); R79.89 Other specified abnormal findings of blood chemistry | CPT/HCPCS: 99212 ==

== ENCOUNTER 2023-12-09 12:32 | Outpatient (AMB) | payer MEDICAID, SELFPAY ==
--- NOTE | 2023-12-09 12:46 | A.OFFVIS_ITS ---
Intake Vital Signs 12/09/23 12:52 Height 5 ft 2 in Weight 151 lb 8 oz BMI 27.7 BP 142/65 H Blood Pressure Location Lt brachial Position Sitting Pulse 65 Intake Visit Reasons: s/p laparoscopic appendectomy, [facility] [place] Inpt Intake Note: This patient presents for a post-op assessment status post laparoscopic appendectomy. Pt c/o; normal bm, eating well, has steri strips in place, has a small lump in the umbilical incision which is oven drier tender and itchy DOS: 11/20/23 lap appy with extensive lysis of adhesions Hollow Handle Knife Assembler Required: Yes Hollow Handle Knife Assembler Language: Precipitation Equipment Tender Name: Fabi RAE Information Interpreted: non-clinical & clinical Accompanied by: spou Allergies morphine Adverse Reaction (Verified 12/09/23 12:51) Anxiety HPI s/p laparoscopic appendectomy, [facility] [place] Inpt HPI Details 53-year-old female here for follow-up af ter laparoscopic appendectomy. She underwent laparoscopic appendectomy for acute appendicitis last November 20, 2023. She tolerated the procedure well and discharged that same day. She has good oral intake. She denies any complaints at this time. [facility] Medical History Iron deficiency anemia Kidney stones HTN (hypertension) Anemia Benign essential hypertension Surgical History (Updated 12/09/23 @ 13:10 by Edwin Law MD) Status post laparoscopic appendectomy History of laparoscopic appendectomy (~11/20/23) S/P panniculectomy Tubal ligation status History of surgery on arm Delivery by section Hx of bariatric surgery Family History Mother Colon cancer Diabetes Sister Lupus Father Diabetes Hypertension Unknown Breast cancer Social History Household Members: Spouse Housing: Apartment Are you a primary emergency care tech to a significant other at home: No Do you presently have visiting nurse or other home services: No Alcohol intake: former Patient Tobacco Use Status: Never used Tobacco service: No Current occupational status: unemployed Female Reproductive History Menstrual Age of Menarche: 11 Review of Systems Const Denies chills and Denies fever(s) Card Denies chest pain, Denies dyspnea and Denies dyspnea on exertion Resp Denies cough, Denies dyspnea and Denies dyspnea on exertion GI Denies hematochezia and Denies change in bowel habits Denies hematuria Musc Denies back pain and Denies limited range of motion Neuro Denies focal weakness and Denies convulsions Psych Denies depression and Denies mood swings Physical Exam Vital Signs: Last Vital Signs Pulse 65 12/09/23 12:52 BP 142/65 H 12/09/23 12:52 BMI result Body Mass Index 27.7 Const General: comfortable and no acute distress Resp Effort & Inspection: normal respiratory effort GI Other: All incisions are well healed, no infections Assessment & Plan Assessment & Plan (1) Status post laparoscopic appendectomy: Code(s): Z90.49 - Acquired absence of other specified parts of digestive tract Plan: She is doing very well postoperatively. All incisions are well healed. I advised her to avoid lifting anything more than 20 lb for about 2 more weeks. She can follow up on a p.r.n. basis. Her path report confirms acute appendicitis. Coding Level of Care Code Global (12481) Diagnoses Status post laparoscopic appendectomy Z90.49
[2023-12-09 12:52] VITALS: BP 142/65; PULSE 65; BMI 27.7
== END 2023-12-09 13:17 | disposition home or self-care (01) ==
PROVIDERS: PCP Nurse Practitioner Primary Care; Visit Provider Surgery
DX: Z90.49 Acquired absence of other specified parts of digestive tract (principal)
CPT/HCPCS: 99024

== ENCOUNTER → 2023-12-09 12:32 | Outpatient (BNVA) | payer MEDICAID, SELFPAY | PROVIDERS: PCP Nurse Practitioner Primary Care; Visit Provider Surgery | DX: Z90.49 Acquired absence of other specified parts of digestive tract (principal) | CPT/HCPCS: 99212 ==

== ENCOUNTER 2023-12-15 11:02 | Outpatient (AMB) | payer MEDICAID, SELFPAY ==
--- NOTE | 2023-12-15 11:05 | A.OFFVIS_ITS ---
Intake Vital Signs 12/15/23 11:17 Height 5 ft 2 in Weight 149 lb 14.629 oz BMI 27.4 BP 126/74 Intake Visit Reasons: EMB Allergies morphine Adverse Reaction (Verified 12/09/23 12:51) Anxiety HPI HPI Comments History of Present Illness Details Presenting for EMB PFSH Medical History Iron deficiency anemia Kidney stones HTN (hypertension) Anemia Benign essential hypertension Surgical History Status post laparoscopic appendectomy History of laparoscopic appendectomy (~11/20/23) S/P panniculectomy Tubal ligation status History of surgery on arm Delivery by section Hx of bariatric surgery Family History Mother Colon cancer Diabetes Sister Lupus Father Diabetes Hypertension Unknown Breast cancer Social History Household Members: Spouse Housing: Apartment Are you a primary critical care unit nurse to a significant other at home: No Do you presently have visiting nurse or other home services: No Alcohol intake: former Patient Tobacco Use Status: Never used Tobacco service: No Current occupational status: unemployed Female Reproductive History Menstrual Age of Menarche: 11 Review of Systems Const All systems reviewed & are unremarkable except as noted in HPI and below Reports as per HPI and Reports no additional complaints GI Reports no additional complaints Reports no additional complaints Office Procedures Endometrial Biopsy Details: The patient was counseled regarding the indication and benefits of endometrial sampling to rule out endometrial pathology including not limited to endometrial hyperplasia or endometrial cancer and others; The alternatives (Either do nothing vs. hysteroscopy D&C) & the risks were discussed with the patient including but not limited: pain, uterine perforation, bleeding, infection, possible injury to bladder, bowel, ureter, possible need for blood transfusion with all its possible risks. The patient verbalized understanding all questions answered and signed consent. Urine test done in the office was negative The patient was placed into the dorsal lithotomy position; a speculum was inserted in the vagina. Using aseptic technique for the procedure, the cervix was cleansed with Betadine. The anterior lip of the cervix was grasped with a single tooth tenaculum. The uterus was sounded to 7 cm with a 4 mm Pipelle was used. Tissues samples w ere obtained and placed in formalin, in a patient labeled container and sent to the pathology department. At the end of the procedure, there was minimal bleeding noted The patient tolerated the procedure well and was discharged in good condition with the following instructions: Nothing in the vagina until the bleeding stops. No sex until the bleeding stops, to call if any of the following occurs: fever (>100.4), flu-like symptoms, abdominal pain, heavy bleeding, four smelling vaginal discharge. The patient was instructed to schedule a Follow up appointment in 2 weeks to discuss pathology results of the biopsy and treatment options. This note was generated with a voice recognition program. Some errors may have been overlooked during the review of this note. Sometimes these errors may af fect the content or meaning of a given sentence. 15084-[id number] Biopsy Assessment & Plan Assessment & Plan (1) Abnormal uterine bleeding: Comment: Controlled with Lysteda but with persisitent intermenstrual spotting Code(s): N93.9 - Abnormal uterine and vaginal bleeding, unspecified Plan: EMB done, see procedure note Orders: Orders AMB Endometrial Biopsy Today N93.9 - Abnormal uterine and vaginal bleeding, unspecified Coding Level of Care Code Procedure Only Diagnoses Abnormal uterine bleeding N93.9 CPT Codes Endometrial Biopsy - CPT: 15335-[id number] Biopsy ([id number])
[2023-12-15 11:17] VITALS: BP 126/74; BMI 27.4
== END 2023-12-15 11:33 | disposition home or self-care (01) ==
LOC: HO.HWS 11:02
PROVIDERS: PCP Nurse Practitioner Primary Care; Visit Provider Obstetrics & Gynecology
DX: Z32.02 Encounter for pregnancy test, result negative (principal); N93.9 Abnormal uterine and vaginal bleeding, unspecified
CPT/HCPCS: 58100

== ENCOUNTER 2023-12-15 11:02 | Outpatient (REF) | payer MEDICAID, SELFPAY | END 2023-12-15 11:03 | disposition home or self-care (01) | LOC: HO.LNP 11:02 | PROVIDERS: PCP Nurse Practitioner Primary Care; Visit Provider Obstetrics & Gynecology | DX: N93.9 Abnormal uterine and vaginal bleeding, unspecified (principal); Z32.02 Encounter for pregnancy test, result negative | CPT/HCPCS: 58100; 81025; 88305 ==

== ENCOUNTER 2024-01-13 14:17 | Outpatient (AMB) | payer MEDICAID, SELFPAY ==
[2024-01-13 14:20] VITALS: BP 128/76; BMI 28.0
--- NOTE | 2024-01-13 14:20 | MHC.OFFVIS ---
Intake Vital Signs 01/13/24 14:20 Height 5 ft 2 in Weight 153 lb BMI 28.0 BP 128/76 Intake Visit Reasons: EMB Results Procurement Professional Required: Yes Procurement Professional Language: Night Order Selector Name: ariana [id number] Allergies morphine Adverse Reaction (Verified 01/13/24 14:26) Anxiety Patient : No HPI HPI Comments History of Present Illness Details The patient is presenting for follow-up to discuss the results of her abnormal uterine bleeding workup and options of treatment. The following workup was done.: H&H= 12.4/37.8 TSH low, FT4 wnl, apt scheduled with pcp in 02/24 prolactin, hCG, GC and chlamydia were negative. FSH/LH done in 07/26 were in the premenopausal range Endometrial biopsy pathology showed inactive endometrium with no evidence of hyperplasia and/or malignancy. Co testing was done w in 02/21 as negative. Mammogram in 02/23 was BI-RADS 2. Pelvic ultrasound showed the following: IMPRESSION: Multiple nabothian cysts are seen within the cervix. The examination is otherwise unremarkable [facility] Medical History Iron deficiency anemia Kidney stones HTN (hypertension) Anemia Benign essential hypertension Surgical History Status post laparoscopic appendectomy History of laparoscopic appendectomy (~11/20/23) S/P panniculectomy Tubal ligation status History of surgery on arm Delivery by section Hx of bariatric surgery Family History Mother Colon cancer Diabetes Sister Lupus Father Diabetes Hypertension Unknown Breast cancer Social History Household Members: Spouse Housing: Apartment Are you a primary healthcare corporate account director to a significant other at home: No Do you presently have visiting nurse or other home services: No Alcohol intake: former Patient Tobacco Use Status: Never used Tobacco service: No Current occupational status: unemployed Female Reproductive History Menstrual Age of Menarche: 11 control method: permanent sterilization Review of Systems Const All systems reviewed & are unremarkable except as noted in HPI and below Reports as per HPI and Reports no additional complaints GI Reports no additional complaints Reports no additional complaints Physical Exam Vital Signs: BMI result Body Mass Index 28.0 Assessment & Plan Assessment & Plan (1) Abnormal uterine bleeding: Code(s): N93.9 - Abnormal uterine and vaginal bleeding, unspecified Plan: Discussed with the patient the results of the work up done and options of treatment including Lysteda, BCP's, Mirena IUD, endometrial ablation and hysterectomy. All pros, cons, risks and benefits if each option was discussed with the patient and the patient decided to think about it and get back to us. All questions answered the patient verbalized understanding. Coding Level of Care Code Est Pt Level 3 (85901) Diagnoses Abnormal uterine bleeding N93.9
== END 2024-01-13 14:35 | disposition home or self-care (01) ==
PROVIDERS: PCP Nurse Practitioner Primary Care; Visit Provider Obstetrics & Gynecology
DX: N93.9 Abnormal uterine and vaginal bleeding, unspecified (principal)
CPT/HCPCS: 99213

== ENCOUNTER → 2024-01-13 14:17 | Outpatient (BNVA) | payer MEDICAID, SELFPAY | PROVIDERS: PCP Nurse Practitioner Primary Care; Visit Provider Obstetrics & Gynecology | DX: N93.9 Abnormal uterine and vaginal bleeding, unspecified (principal) | CPT/HCPCS: 99212 ==

== ENCOUNTER 2024-02-11 10:28 | Outpatient (REF) | payer MEDICAID, SELFPAY ==
[2024-02-11 12:45] LABS: Alanine Aminotransferase 10 U/L (0-31); Albumin Level 4.4 g/dL (3.5-5.0); Alkaline Phosphatase 73 U/L (39-117); Aspartate Amino Transferase 16 U/L (5-31); Bilirubin Direct 0.2 mg/dL (0.0-0.5); Bilirubin Total 0.6 mg/dL (0.0-1.0); Free T4 (Free Thyroxine) 1.21 ng/dL (0.71-1.85); Thyroid Stimulating Hormone 0.26 uIU/mL (0.32-4.0); Total Protein 7.7 g/dL (6.5-8.0)
[2024-02-12 22:28] LABS: Triiodothyronine T3 Free 3.1 pg/mL (2.3-4.2)
== END 2024-02-11 10:29 | disposition home or self-care (01) ==
LOC: HO.LAB 10:28
PROVIDERS: PCP Nurse Practitioner Primary Care; Visit Provider Internal Medicine Endocrinology, Diabetes & Metabolism
DX: R79.89 Other specified abnormal findings of blood chemistry (principal); B35.1 Tinea unguium
CPT/HCPCS: 36415; 80076; 84439; 84443; 84481

== ENCOUNTER 2024-02-16 13:05 | Outpatient (AMB) | payer MEDICAID, SELFPAY ==
[2024-02-16 13:08] VITALS: BP 116/74; PULSE 106; BMI 27.5
--- NOTE | 2024-02-16 13:08 | A.OFFVIS_ITS ---
Vital Signs 02/16/24 13:08 Height 5 ft 2 in Weight 150 lb 9.211 oz BMI 27.5 BP 116/74 Blood Pressure Location Lt brachial Position Sitting Pulse 106 H Pulse Source Pulse Oximeter Intake Visit Reasons: Low TSH-lvm Intake Note: Patient present today for low TSH follow up visit. Survey Compiler Required: Yes Survey Compiler Language: Manager Financial Systems Name: Elsa Information Interpreted: non-clinical & clinical Accompanied by: Self / Same As Patient Allergies morphine Adverse Reaction (Verified 02/16/24 13:12) Anxiety HPI Comments Details: 52 YO F with who is seen in consultation forsuppressed TSH at the request of PCP. Currently denies any dysphagia but does have hoarseness of voice. Denies sensation of swelling in the neck or difficulty breathing while lying flat. Denies any tenderness in the neck. + palpitations,- tremors, -weight loss,- frequent bowel movements. Had bariatric operation 4 yrs ago Denies any ocular complaints, occasional blurred but no double vision. Denies hair loss, +dry skin, -heat or cold intolerance,. Denies any history of head or neck irradiation. Denies any family history of thyroid cancer. Family hx of thyroid dx Kelp use:No Biotin:No Labs:Repeat TSH =0.37 Had cortisone shot rght before thyroid blood tests PFSH Medical History Iron deficiency anemia Kidney stones HTN (hypertension) Anemia Benign essential hypertension Surgical History Status post laparoscopic appendectomy History of laparoscopic appendectomy (~11/20/23) S/P panniculectomy Tubal ligation status History of surgery on arm Delivery by section Hx of bariatric surgery Family History Mother Colon cancer Diabetes Sister Lupus Father Diabetes Hypertension Unknown Breast cancer Social History Household Members: Spouse Housing: Apartment Are you a primary career development counselor to a significant other at home: No Do you presently have visiting nurse or other home services: No Alcohol intake: former Patient Tobacco Use Status: Never used Tobacco service: No Current occupational status: unemployed Female Reproductive History Menstrual Age of Menarche: 11 Physical Exam Vital Signs: Last Vital Signs Pulse 106 H 02/16/24 13:08 BP 116/74 02/16/24 13:08 BMI result Body Mass Index 27.5 HEENT reveals absence of lid lag , stare or proptosis or eyebrow loss. Thyroid gland measure 15 gms . No nodules or tenderness palpated. There is no cervical adenopathy palpated. Lungs CTA. Heart S1, S2 Reg R/R -M/R/G. Abdominal exam benign. Skin exam reveals absence of dryness or thyroid dermopathy or vitiligo. Nail exam reveals absence of thyroid acropachy or oncholysis. Neurologic exam reveals 2+ reflexes . Muscle Strength is 5/5 proximally. There are no tremors in upper extremities. Assessment & Plan Assessment & Plan (1) Abnormal thyroid blood test: Comment: low TSH, nl FT4 Code(s): R7 - Other specified abnormal findings of blood chemistry Category: Medical Plan: This is a 53-year-old female found to have a mildly suppressed TSH. Patient appears to be clinically euthyroid. Differential includes most likely suppression of TSH after weight loss from bariatric surgery. Doubt hyperthyroidism. More recent TSH was 0.26 but was obtained 1 day after steroid injection with could suppressed TSH. Thyroid ultrasound had normal appearance Plan is to have the patient recheck TSH, free T4, free T3 and thyroid receptor antibody to rule out Graves disease. If TSH is > 0.1 particularly if antibodies are negative, patient returned to the care of her primary care provider and returned back to endocrinology should TSH become further suppressed <0.1. Orders: Orders Free T4 (Free Thyroxine) 1 Week - Other specified abnormal findings of blood chemistry Thyroid Stimulating Hormone 1 Week - Other specified abnormal findings of blood chemistry Triiodothyronine T3 Free 1 Week - Other specified abnormal findings of blood chemistry Thyrotropin Receptor Antibody 1 Week - Other specified abnormal findings of blood chemistry Coding Level of Care Code Est Pt Level 3 (82571) Diagnoses Abnormal thyroid blood test
== END 2024-02-16 13:28 | disposition home or self-care (01) ==
PROVIDERS: PCP Nurse Practitioner Primary Care; Referring Provider Nurse Practitioner Primary Care; Visit Provider Internal Medicine Endocrinology, Diabetes & Metabolism
DX: R79.89 Other specified abnormal findings of blood chemistry (principal)
CPT/HCPCS: 99213

== ENCOUNTER → 2024-02-16 13:05 | Outpatient (BNVA) | payer MEDICAID, SELFPAY | PROVIDERS: PCP Nurse Practitioner Primary Care; Visit Provider Internal Medicine Endocrinology, Diabetes & Metabolism | DX: R79.89 Other specified abnormal findings of blood chemistry (principal) | CPT/HCPCS: 99212 ==

== ENCOUNTER 2024-02-23 15:56 | Outpatient (REF) | payer MEDICAID, SELFPAY ==
[2024-02-23 19:52] LABS: Free T4 (Free Thyroxine) 1.05 ng/dL (0.71-1.85); Thyroid Stimulating Hormone 0.22 uIU/mL (0.32-4.0)
[2024-02-26 19:45] LABS: Thyrotropin Receptor Antibody 1.02 IU/L (<=2.00)
== END 2024-02-23 15:57 | disposition home or self-care (01) ==
LOC: HO.HHCL 15:56
PROVIDERS: Visit Provider Internal Medicine Endocrinology, Diabetes & Metabolism
DX: R79.89 Other specified abnormal findings of blood chemistry (principal)
CPT/HCPCS: 36415; 83520; 84439; 84443; 84481

== ENCOUNTER 2024-03-17 09:58 | Outpatient (REF) | payer MEDICAID, SELFPAY ==
[2024-03-17 11:27] LABS: Hematocrit 39.4 % (37.0-47.0); Hemoglobin 12.8 g/dl (12.0-16.0)
== END 2024-03-17 09:59 | disposition home or self-care (01) ==
LOC: HO.HHCL 09:58
PROVIDERS: Visit Provider Nurse Practitioner Primary Care
DX: D50.0 Iron deficiency anemia secondary to blood loss (chronic) (principal)
CPT/HCPCS: 36415; 85014; 85018

== ENCOUNTER 2024-05-17 11:29 | Outpatient (REF) | payer MEDICAID, SELFPAY ==
--- NOTE | ~2024-05-17 | MM_ITS ---
EXAMINATION: MM SCREENING DIGITAL BREAST TOMOSYNTHESIS, BILATERAL CLINICAL INFORMATION: Screening. Asymptomatic. COMPARISON: Mammography: This study is compared with prior exams dating back to 2020. TECHNIQUE: Digital breast tomosynthesis is performed in both the craniocaudal and mediolateral oblique views along with computer-aided detection (CAD). Synthesized 2D images are generated from the tomosynthesis. FINDINGS: There are scattered areas of fibroglandular density (ACR BI-RADS breast composition Category b). There are no significant masses, abnormal calcifications, or other abnormalities. There is scan unchanged benign mass in the 9:00 region of the left breast. This is known to be benign and has been followed with imaging in previous years. MM/MM tomosynthesis screening BI IMPRESSION: No mammographic evidence of malignancy. ASSESSMENT: BI-RADS BI-RADS 2 - Benign Findings RECOMMENDATION: Routine annual mammography screening. 1 year F/U This examination should not preclude the clinical evaluation of a suspicious palpable abnormality. This patient's information was entered into a reminder system with a target due date for their next mammogram. Electronically signed by: Bethany Simon MD 06/08/2024 04:17 PM EDT
== END 2024-05-17 11:30 | disposition home or self-care (01) ==
LOC: HO.MAMMO 11:29
PROVIDERS: PCP Nurse Practitioner Primary Care; Visit Provider Nurse Practitioner Primary Care
DX: Z12.31 Encounter for screening mammogram for malignant neoplasm of breast (principal)
CPT/HCPCS: 77063; 77067

== ENCOUNTER → 2024-05-17 11:45 | Outpatient (BNV) | payer MEDICAID, SELFPAY | PROVIDERS: PCP Nurse Practitioner Primary Care; Visit Provider Radiology Diagnostic Radiology | DX: Z12.31 Encounter for screening mammogram for malignant neoplasm of breast (principal) | CPT/HCPCS: 77063; 77067 ==

== ENCOUNTER 2024-08-09 13:01 | Outpatient (REF) | payer MEDICAID, SELFPAY ==
[2024-08-09 16:19] LABS: MANUAL DIFF FLAG NO
[2024-08-09 16:48] LABS: Basophils Absolute Auto 0.1 X10*3/uL (0.0-0.2); Basophils Percent Auto 0.9 % (0-2); Eosinophils Absolute Auto 0.1 X10*3/uL (0.0-0.4); Eosinophils Percent Auto 2.1 % (0-4); Hematocrit 37.8 % (37.0-47.0); Hemoglobin 12.5 g/dl (12.0-16.0); Imm Gran Abs Auto 0.01 X10*3/uL (0.00-0.03); Imm Gran Pct Auto 0.2 % (0.0-0.4); Lymphocytes Absolute Auto 1.9 X10*3/uL (1.2-4.9); Lymphocytes Percent Auto 27.8 % (20-40); Mean Corpuscular HGB Conc 33.1 g/dl (31.0-35.0); Mean Corpuscular Hemoglobin 29.8 pg (27.0-33.0); Monocytes Absolute Auto 0.4 X10*3/uL (0.1-1.2); Monocytes Percent Auto 5.4 % (2-11); Neutrophils Absolute Auto 4.2 x10*3/uL (2.0-8.3); Neutrophils Percent Auto 63.6 % (45-73); Platelet Count 348 X10*3/uL (160-400); Red Cell Distribution Width 12.3 % (11.0-16.0); White Blood Count 6.7 X10*3/uL (4.8-10.8)
[2024-08-09 17:07] LABS: Rheumatoid Factor < 13.0 IU/mL (<15.0)
[2024-08-09 17:17] LABS: C Reactive Protein 0.24 mg/dL (< or = 0.50); Uric Acid 3.5 mg/dL (2.4-5.7)
[2024-08-09 17:18] LABS: TSH reflex Free T4 0.43 uIU/mL (0.32-4.0)
[2024-08-09 19:19] LABS: Erythrocyte Sedimentation Rate 16 MM/HR (0-20)
[2024-08-10 09:15] LABS: Triiodothyronine T3 Total 100 ng/dL (76-181)
[2024-08-10 23:17] LABS: Cyclic Citrullinated Peptide <16 UNITS
== END 2024-08-09 13:02 | disposition home or self-care (01) ==
LOC: HO.HHCL 13:01
PROVIDERS: Visit Provider Nurse Practitioner Primary Care
DX: D50.0 Iron deficiency anemia secondary to blood loss (chronic) (principal); M25.50 Pain in unspecified joint; R94.6 Abnormal results of thyroid function studies
CPT/HCPCS: 36415; 84443; 84480; 84550; 85025; 85652; 86140; 86200; 86431

== ENCOUNTER 2024-10-10 08:55 | Outpatient (AMB) | payer MEDICAID, SELFPAY ==
[2024-10-10 09:00] VITALS: BMI 27.5
--- NOTE | 2024-10-10 09:00 | MHC.OFFVIS ---
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 She describes her knee pain as sharp and severe in nature. She has had cortisone injections in the past. The most recent injection gave her minimal relief. She has failed the last 3 months of conservative treatment which has consisted of cortisone injection, physical therapy exercises, Tylenol and anti-inflammatory medicines as well as topical creams. The patient states that her right knee pain is now interfering with her activities of daily living and her ability to sleep well through the night. She wishes to hold off on right total knee replacement surgery for as long as possible. International Coordinator Required: Yes International Coordinator Language: Software Asset Management Analyst Services: International Coordinator Present International Coordinator Name: KYRA Toth/RAMON Allergies morphine Adverse Reaction (Verified 10/10/24 09:11) Anxiety Medication List - Last Reconciled 10/10/24 by Glenn Bangura MD acetaminophen ER 650 mg PO Q8H PRN duloxetine (Cymbalta) 1 cap PO DAILY gabapentin 300 mg PO BEDTIME lisinopril 5 mg PO DAILY PFSH Medical History Iron deficiency anemia Kidney stones HTN (hypertension) Anemia Benign essential hypertension Surgical History Status post laparoscopic appendectomy History of laparoscopic appendectomy (~11/20/23) S/P panniculectomy Tubal ligation status History of surgery on arm Delivery by section Hx of bariatric surgery Family History Mother Colon cancer Diabetes Sister Lupus Father Diabetes Hypertension Unknown Breast cancer Social History (Updated 10/10/24 @ 09:12 by KYRA Barton) Household Members: Spouse Housing: Apartment Are you a primary direct care supervisor to a significant other at home: No Do you presently have visiting nurse or other home services: No Alcohol intake: former Patient Tobacco Use Status: Never used Tobacco service: No Current occupational status: unemployed Current occupation: rt handed Female Reproductive History Menstrual Age of Menarche: 11 Physical Exam Vital Signs: BMI result Body Mass Index 27.5 Const Other: Well-nourished well-developed very friendly female awake alert and oriented x3 in no acute distress Extrem Other: Bilateral lower extremity examination shows good capillary refill, no skin lesions noted, normal sensation light touch Right knee examination shows a minimal effusion, palpable crepitus with range of motion, pain with range of motion, range of motion from -3 degrees to 115 degrees, no instability Results Reviewed Results Reviewed: X-rays of the patient's right knee show severe joint space narrowing, subchondral sclerosis, osteophyte formation, no acute bony abnormalities Assessment & Plan Assessment & Plan (1) Osteoarthritis of right knee: Code(s): M17.11 - Unilateral primary osteoarthritis, right knee Category: Medical Plan Khadar presents with progressively worsening right knee pain due to severe osteoarthritis. I had a lengthy discussion with the patient regarding the treatment options. She wishes to hold off on total knee replacement surgery for as long as possible. I agree with this plan. She has not gotten good relief from cortisone injections given by another provider. Thus, I will see whether or not the patient's insurance company will cover a viscosupplementation injection. I will see her back once the injection is available. Feel free to call me at any time should questions regarding her orthopedic management arise. I spent 21 minutes in reviewing the patient's records and imaging studies, seeing the patient and documenting in the medical record. Orders: Orders XR knee RT 3V Today M25.561 - Pain in right knee Coding Level of Care Code New Pt Level 3 (91211) Complex EM visit Add On G2211 Diagnoses Osteoarthritis of right knee M17.11
== END 2024-10-10 09:33 | disposition home or self-care (01) ==
PROVIDERS: PCP Nurse Practitioner Primary Care; Visit Provider Orthopaedic Surgery
DX: M17.11 Unilateral primary osteoarthritis, right knee (principal)
CPT/HCPCS: 99203

== ENCOUNTER 2024-10-10 09:30 | Outpatient (REF) | payer MEDICAID, SELFPAY ==
--- NOTE | ~2024-10-10 | XR_ITS ---
EXAMINATION: XR KNEE 3 VIEWS RIGHT HISTORY: M25.561 - Pain in right knee COMPARISON: Comparison is made with the prior examination dated 03/05/2023. FINDINGS: Three views of the right knee are submitted. Osseous mineralization is normal. There is no fracture or dislocation. There is severe osteoarthritis of the lateral compartment with joint space narrowing and osteophyte formation. There is a trace joint effusion. XR/XR knee RT 3V IMPRESSION: Severe osteoarthritis of the lateral compartment. Trace joint effusion. Electronically signed by: Dylon Mojica MD 10/12/2024 01:38 PM EST
== END 2024-10-10 09:31 | disposition home or self-care (01) ==
LOC: HO.HOSX 09:30
PROVIDERS: Visit Provider Orthopaedic Surgery
DX: M25.561 Pain in right knee (principal); M17.11 Unilateral primary osteoarthritis, right knee
CPT/HCPCS: 73562; 99202

== ENCOUNTER 2024-10-12 14:03 | Outpatient (AMB) | payer MEDICAID, SELFPAY ==
--- NOTE | 2024-10-12 14:08 | A.OFFVIS_ITS ---
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 No complaints. Last Pap/HPV was negative in 06/24 Last Mammogram was BI-RADS 2 in 05/27 Last Colonoscopy was in 04/23, the recommendation was to repeat in 3 years [facility] Medical History Iron deficiency anemia Kidney stones HTN (hypertension) Anemia Benign essential hypertension Surgical History Status post laparoscopic appendectomy History of laparoscopic appendectomy (~11/20/23) S/P panniculectomy Tubal ligation status History of surgery on arm Delivery by section Hx of bariatric surgery Family History Mother Colon cancer Diabetes Sister Lupus Father Diabetes Hypertension Unknown Breast cancer Social History Household Members: Spouse Housing: Apartment Are you a primary care consultant to a significant other at home: No Do you presently have visiting nurse or other home services: No Alcohol intake: former Patient Tobacco Use Status: Never used Tobacco service: No Current occupational status: unemployed Current occupation: rt handed Female Reproductive History Menstrual Age of Menarche: 11 Duration of menses: >10 days (Very heavy ) Date of last menstrual period: 08/20/24 control method: permanent sterilization Date of last pap smear: 06/18/21 Date of Mammogram: 05/17/24 Review of Systems Const All systems reviewed & are unremarkable except as noted in HPI and below Card Reports as per HPI Resp Reports as per HPI GI Reports as per HPI and Reports no additional complaints Reports as per HPI Physical Exam Const General: cooperative, healthy appearing and comfortable Chest Chest palpation & inspection: normal inspection of the chest and normal palpation of entire chest wall Breast/axilla inspection: normal inspection of the breasts and normal inspection of the axillae Breast/axilla palpation: normal palpation of the breasts, normal palpation of the axillae and no axillary lymphadenopathy Resp Effort & Inspection: normal respiratory effort Auscultation: clear to auscultation bilaterally Percussion: percussion normal Cardio Palpation: normal PMI Rate: regular rate Rhythm: regular rhythm Heart sounds: no murmurs and no rubs Peripheral pulses: Peripheral pulses 2+ throughout GI Inspection: Yes normal to inspection Palpation (GI): Soft to palpation, nontender, no guarding, not rigid and No hepatosplenomegaly present Percussion: Yes normal to percussion Auscultation: normal bowel sounds Rectal Exam - Female: deferred General: Yes bladder normal to palpation External Female Exam: No lesion Speculum Exam - Vagina: normal appearance of the vagina, normal palpation, normal vaginal discharge and not erythematous Speculum Exam - Cervix: normal appearance of the cervix and normal palpation Bimanual exam- vagina & uterus: normal bimanual exam, normal palpation, uterine size normal, bladder normal to palpation, consistency normal and normal palpation Bimanual Exam- Adnexa, other: normal adnexae, no masses and no tenderness Assessment & Plan Assessment & Plan (1) Well woman exam: Code(s): Z01.419 - Encounter for gynecological examination (general) (routine) without abnormal findings Category: Medical Plan: Cotesting not indicated this year. Instructions given the patient to schedule next screening Mammogram in 05/28. Counseled the patient about the recommended dietary allowance of 1000 mg of Calcium & 600 IU of vitamin D. The patient was referred to GI for screening colonoscopy The patient was instructed to perform monthly self-breast exams and to schedule an annual exam in a year; All questions answered and the patient verbalized understanding. Instructed the patient to schedule annual exam in a year Orders: Referrals Gastroenterology Referral Z12.11 - Encounter for screening for malignant neoplasm of colon Coding Level of Care Code Est Pt Prev Care 40-64y(09215) Diagnoses Well woman exam Z01.419
== END 2024-10-12 14:45 | disposition home or self-care (01) ==
PROVIDERS: PCP Nurse Practitioner Primary Care; Visit Provider Obstetrics & Gynecology
DX: Z01.419 Encounter for gynecological examination (general) (routine) without abnormal findings (principal)
CPT/HCPCS: 99396; 99459

== ENCOUNTER → 2024-10-12 14:03 | Outpatient (BNVA) | payer MEDICAID, SELFPAY | PROVIDERS: PCP Nurse Practitioner Primary Care; Visit Provider Obstetrics & Gynecology | DX: Z01.419 Encounter for gynecological examination (general) (routine) without abnormal findings (principal) | CPT/HCPCS: 99396; 99459 ==

== ENCOUNTER 2024-12-06 07:27 | Outpatient (AMB) | payer MEDICAID, SELFPAY ==
--- OUTSIDE RECORDS SUMMARY | 2024-12-06 07:29 | XMS_ITS | Encounter Summary ---
Author Organization [employer] [facility] Address [address] [place] [address] [address] [place] [address] Care Team Providers Care Real Estate Clerk Name Role Phone Imelda Rae Primary Care Provider [phone] Encounter Details Date Type Department Care Team (Latest Contact Info) Description 07/26/2020 Abstract [facility] CONVERSIONS Dental, Provider, DDS Social History Tobacco Use Types Packs/Day Years Used Date Smoking Tobacco: Never Assessed Comments Unknown Sex and Gender Information Value Date Recorded Sex Assigned at Female 08/03/2022 10:36 AM EDT Legal Sex Female 10:36 AM EDT Gender Identity Female 08/03/2022 10:36 AM EDT Sexual Orientation Straight 08/03/2022 10 :36 AM EDT documented as of this encounter Plan of Treatment Upcoming Encounters Date Type Department Care Team ( st Contact Info) Description 03/27/2025 8:00 AM EDT Office Visit [facility] ADULT DENTAL [address] [place] [address] Clayton, Elizabeth [address] [place] [address] documented as of this encounter Visit Diagnoses Not on filedocumented in this encounter Care Teams Real Estate Clerk Relationship Specialty Start Date End Date Imelda Rae ANP [address] [place] [address] PCP - General Family Medicine 12/01/19 documented as of this encounter
--- OUTSIDE RECORDS SUMMARY | 2024-12-06 07:29 | XMS_ITS | Encounter Summary ---
Author Organization [employer] [facility] Address [address] [place] [address] [address] [place] [address] Care Team Providers Care Rug Drying Machine Operator Name Role Phone Imelda Rae Primary Care Provider [phone] Encounter Details Date Type Department Care Team (Late Contact Info) Description 06/25/2023 Orders Only [facility] MEDICINE [address] [place] [address] Provider, MD Joanie Social History Tobacco Use Types Packs/Day Years Used Date Smoking Tobacco: Never Smokeless Tobacco: Never Alcohol Use Standard Drinks/Week Comments Never 0 (1 standard drink = 0.6 oz pur e alcohol) Depression Answer Date Recorded Patient Health Questionnaire-9 Score 0 10/29/2022 Depression Answer Date Recorded Patient Health Questionnaire-2 Score 0 10/29/2022 Comments Unknown Sex and Gender Information Value Date Recorded Sex Assigned at Female 08/03/2022 10:36 AM EDT Legal Sex Female 10:36 AM EDT Gender Identity Female 08/03/2022 10:36 AM EDT Sexual Orientation Straight 08/03/2022 10 :36 AM EDT documented as of this encounter Plan of Treatment Upcoming Encounters Date Type Department Care Team (Late st Contact Info) Description 03/27/2025 8:00 AM EDT Office Visit [facility] ADULT DENTAL [address] [place], [place] [id number] Elizabeth Arnold [address] [place] [address] documented as of this encounter Procedures Procedure Name Priority Date/Time Associated Diagnosis Comments HM PAP/HPV Routine 06/17/2021 documented in this encounter Results * Hm Pap Smear (06/17/2021) us Historical Provider MD HEALTH MAINTENANCE Final Result documented in this encounter Visit Diagnoses Not on filedocumented in this encounter Additional Health Concerns Assessment Noted Time PHQ-9 Depression Total Score: 0 10/29/19 23 11:10 AM EST documented as of this encounter Care Teams Rug Drying Machine Operator Relationship Specialty Start Date End Date Imelda Rae ANP [address] [place] [address] PCP - General Family Medicine 12/01/19 documented as of this encounter
--- OUTSIDE RECORDS SUMMARY | 2024-12-06 07:29 | XMS_ITS | Encounter Summary ---
Author Organization [employer] [facility] Address [address] [place] [address] [address] [address] Care Team Providers Care Information Technology Coordinator Name Role Phone Imelda Rae Primary Care Provider Reason for Visit * Reason Comments Med Change Request Encounter Details Date Type Department Care Team (Late st Contact Info) Description 05/29/2023 Refill [facility] MEDICINE [address] [place] [address] Imelda Rae ANP [address] [place] [address] Menorrhagia with regular cycle Social History Tobacco Use Types Packs/Day Years [...] Description 03/27/2025 8:00 AM EDT Office Visit [facility] ADULT DENTAL [address] [place] [address] Elizabeth Arnold [address] [place] [address] documented as of this encounter Visit Diagnoses Diagnosis Menorrhagia with regular cycle documented in this encounter Additional Health Concerns Assessment Noted Time PHQ-9 Depression Total Score: 0 10/29/19 23 11:10 AM EST documented as of this encounter Care Teams Information Technology Coordinator Relationship Specialty Start Date End Date Imelda Rae ANP [address] [place] [address] PCP - General Family Medicine 12/01/19 documented as of this encounter
--- OUTSIDE RECORDS SUMMARY | 2024-12-06 07:29 | XMS_ITS | Encounter Summary ---
Author Organization [employer] [facility] Address [address] [place] [address] [address] [place] [address] Care Team Providers Care Shiatsu Therapist Name Role Phone Imelda Rae Primary Care Provider [phone] Encounter Details Date Type Department Care Team (Latest Contact Info) Description 05/21/2021 Abstract [facility] CONVERSIONS Dental, Provider, DDS Social History Tobacco [...] Description 03/27/2025 8:00 AM EDT Office Visit [facility] ADULT DENTAL [address] [place] [address] Clayton, Elizabeth [address] [place] [address] documented as of this encounter Visit Diagnoses Not on filedocumented in this encounter Care Teams Shiatsu Therapist Relationship Specialty Start Date End Date Imelda Rae ANP [address] [place] [address] PCP - General Family Medicine 12/01/19 documented as of this encounter
--- OUTSIDE RECORDS SUMMARY | 2024-12-06 07:29 | XMS_ITS | Patient Health Record ---
Author Organization [facility] Address [address] [place] [address] Care Team Providers Care Parachute Crown Sewer Name Role Phone RUBY MENENDEZ N.P. Primary Care Provider Dylon Berry Unavailable [phone] KATHRYN HOFF Unavailable Unavailable Reason For Referral No Information Medications Medication SIG (Take, Route, Fr equency, Duration) Notes Start Date End Date Status Iron 100 MG/5ML Orally infusions Active Vitamin C 250 MG 1 tablet Orally Once a day for 30 day(s) Active Lisinopril 5 MG 1 tablet Orally Once a day for 30 day(s) Active Immunizations Vaccine Route Administration Date Status Comme nts Influenza Unknown 06/04/2020 Administered Social History Tobacco Use: Social History Observation Description Date Details (start date - stop date) Never Smoker NA - NA Tobacco Use/Smoking Question Answer Notes Patient is a nonsmoker Alcohol Screen Question Answer Notes Did you have a drink containing alcohol in the p ast year? No Points 0 Interpretation Negative Section Notes: Nonsmoker; no sig alcohol Problems Problem Type SNOMED Code ICD Code Onset Dates Problem Status W/U Status Risk Notes Problem Diverticular disease of colon (743643081) Diverticulosis of large intestine without perforation or abscess without bleeding (K57.30) Active confirmed Problem 82349298 Iron deficiency anemia, unspecified iron deficiency anemia type (D50.9) Active confirmed Problem [id number] Family history o f colon cancer in mother (Z80.0) Active confirmed Plan Of Treatment Pending Test Test Name Order Date Pathology 04/28/2021 Future Test Test Name Order Date UPPER GI ENDOSCOPY 01/31/2021 COLONOSCOPY 01/31/2021 Next Appt Details Provider Name:Dylon Arreola , 03/01/2025 09:20:00 AM, [address], [address], [place], [address], Insurance Providers Payer Name Payer Address Payer Phone Subscriber Number Group Number Insured Name Patient Relationship to Insured Coverage Start Date Coverage End Date MEDICAID OF [employer] [address] [place] [phone] [id number] NESS SNELL Self - patient is the insured Medical (General) History Medical History History ICD Code Hypertension Anemia--sees Dr. Lynne--has had 2 iron infusions 12/2020--can't tolerate po Iron Heavy menses by her report Kidney stones Denies [place],DM,CVA,Lung disease,renal dise ase Surgical History Surgery Date(Month/Year) BARIATRIC SURGERY IN [place] [place] 2018 1991,1992,1995 Surgery on broken left arm
--- NOTE | 2024-12-06 07:43 | A.OFFVIS_ITS ---
Vital Signs 12/06/24 07:48 Height 5 ft 2 in Weight 150 lb 9 oz BMI 27.5 Intake Visit Reasons: Inj-Right knee Euflexxa#1 Intake Note: Khadar is a 54 year old female who presents with complaints of progressively worsening right knee pain. She describes her pain as sharp in nature. She did have a cortisone injection given her right knee last year which gave her minimal relief. She has not had a viscosupplementation injection. She has tried physical therapy exercises which aggravated her pain. She has also tried Tylenol and anti-inflammatory medicines which gave her minimal relief. She wishes to hold off on surgery for as long as possible. Application Technician Required: Yes Application Technician Language: Paper Tester Name: KYRA Toth/RAMON Allergies morphine Adverse Reaction (Verified 12/06/24 07:45) Anxiety Medication List - Last Reconciled 12/06/24 by Glenn Bangura MD acetaminophen ER 650 mg PO Q8H PRN duloxetine (Cymbalta) 1 cap PO DAILY gabapentin 300 mg PO BEDTIME lisinopril 5 mg PO DAILY PFSH Medical History Iron deficiency anemia Kidney stones HTN (hypertension) Anemia Benign essential hypertension Surgical History Status post laparoscopic appendectomy History of laparoscopic appendectomy (~11/20/23) S/P panniculectomy Tubal ligation status History of surgery on arm Delivery by section Hx of bariatric surgery Family History Mother Colon cancer Diabetes Sister Lupus Father Diabetes Hypertension Unknown Breast cancer Social History Household Members: Spouse Housing: Apartment Are you a primary personal care aide to a significant other at home: No Do you presently have visiting nurse or other home services: No Alcohol intake: former Patient Tobacco Use Status: Never used Tobacco service: No Current occupational status: unemployed Current occupation: rt handed Female Reproductive History Menstrual Age of Menarche: 11 Physical Exam Vital Signs: BMI result Body Mass Index 27.5 Const Other: Well-nourished well-developed very friendly female awake alert and oriented x3 in no acute distress Extrem Other: Bilateral lower extremity examination shows good capillary refill, no skin lesions noted, normal sensation light touch Right knee examination shows a minimal effusion, palpable crepitus with range of motion, pain with range of motion, no instability Office Procedures AMB Joint Injection/Aspiration Joint Injection/Aspiration Primary Site: right knee Prep: site was prepped using aseptic technique Injected: 20 mg of (Euflexxa viscosupplementation) and 1% plain lidocaine Procedure: The patient tolerated the procedure well Coding - Large joint Procedure code (CPT) selection complete Assessment & Plan Assessment & Plan (1) Osteoarthritis of right knee: Code(s): M17.11 - Unilateral primary osteoarthritis, right knee Category: Medical Plan Khadar presents with progressively worsening right knee pain due to osteoarthritis. The risks and benefits of a series of Euflexxa viscosupplementation injections were discussed at length with the patient. The patient wished to proceed. She tolerated the 1st injection well. She will continue with her home exercise program. She will follow up next week as scheduled. Feel free to call me at any time should questions regarding her orthopedic management arise. I spent 22 minutes in reviewing the patient's records and imaging studies, seeing the patient and documenting in the medical record. Orders: Orders AMB Joint Injection/Aspiration Today M17.11 - Unilateral primary osteoarthritis, right knee Coding Level of Care Code Est Pt Level 3 (70224) Complex EM visit Add On G2211 Diagnoses Osteoarthritis of right knee M17.11 CPT Codes Coding - 57605 Large joint: 31932 - Large joint ([id number])
[2024-12-06 07:48] VITALS: BMI 27.5
== END 2024-12-06 08:02 | disposition home or self-care (01) ==
PROVIDERS: PCP Nurse Practitioner Primary Care; Visit Provider Orthopaedic Surgery
DX: M17.11 Unilateral primary osteoarthritis, right knee (principal)
CPT/HCPCS: 20610; 99213

== ENCOUNTER → 2024-12-06 07:27 | Outpatient (BNVA) | payer MEDICAID, SELFPAY | PROVIDERS: PCP Nurse Practitioner Primary Care; Visit Provider Orthopaedic Surgery | DX: M17.11 Unilateral primary osteoarthritis, right knee (principal) | CPT/HCPCS: 20610; 99212; J2003; J7323 ==

== ENCOUNTER 2024-12-13 08:26 | Outpatient (AMB) | payer MEDICAID, SELFPAY ==
[2024-12-13 08:30] VITALS: BMI 27.5
--- NOTE | 2024-12-13 08:30 | A.OFFVIS_ITS ---
Vital Signs 12/13/24 08:30 Height 5 ft 2 in Weight 150 lb 9 oz BMI 27.5 Intake Visit Reasons: Inj-Right knee Euflexxa#2 Intake Note: Khadar is a 54 year old female who presents today for her second dose of the Euflexxa gel injection on the right knee. She states that she got mild relief from the 1st injection. She continues with her home exercise program. Straddle Carrier Operator Required: Yes Straddle Carrier Operator Language: Corporate Safety Coordinator Name: NavneetKYRA/RAMON Allergies morphine Adverse Reaction (Verified 12/13/24 08:36) Anxiety Medication List - Last Reconciled 12/13/24 by Glenn Bangura MD acetaminophen ER 650 mg PO Q8H PRN duloxetine (Cymbalta) 1 cap PO DAILY gabapentin 300 mg PO BEDTIME lisinopril 5 mg PO DAILY PFSH Medical History Iron deficiency anemia Kidney stones HTN (hypertension) Anemia Benign essential hypertension Surgical History Status post laparoscopic appendectomy History of laparoscopic appendectomy (~11/20/23) S/P panniculectomy Tubal ligation status History of surgery on arm Delivery by section Hx of bariatric surgery Family History Mother Colon cancer Diabetes Sister Lupus Father Diabetes Hypertension Unknown Breast cancer Social History Household Members: Spouse Housing: Apartment Are you a primary field care coordinator to a significant other at home: No Do you presently have visiting nurse or other home services: No Alcohol intake: former Patient Tobacco Use Status: Never used Tobacco service: No Current occupational status: unemployed Current occupation: rt handed Female Reproductive History Menstrual Age of Menarche: 11 Physical Exam Vital Signs: BMI result Body Mass Index 27.5 Extrem Other: Right knee examination shows a minimal effusion, palpable crepitus with range of motion, pain with range of motion, no instability Office Procedures AMB Joint Injection/Aspiration Joint Injection/Aspiration Primary Site: right knee Prep: site was prepped using aseptic technique Injected: 20 mg of (Euflexxa viscosupplementation) and 1% plain lidocaine Procedure: The patient tolerated the procedure well Coding 18317 - Large joint Procedure code (CPT) selection complete Results Reviewed Results Reviewed: X-rays of the patient's right knee taken previously show joint space narrowing, subchondral sclerosis, no acute bony abnormalities Assessment & Plan Assessment & Plan (1) Osteoarthritis of right knee: Code(s): M17.11 - Unilateral primary osteoarthritis, right knee Category: Medical Plan Ms. Napoleon Avendano presents with right knee pain due to osteoarthritis. The risks and benefits of a 2nd Euflexxa injection were discussed at length with the patient. The patient wished to proceed. She tolerated the injection well. She will continue with her home exercise program. She will follow-up as instructed. Feel free to call me at any time should questions regarding her orthopedic management arise. Orders: Orders AMB Joint Injection/Aspiration Today M17.11 - Unilateral primary osteoarthritis, right knee Coding Level of Care Code Procedure Only Diagnoses Osteoarthritis of right knee M17.11 CPT Codes Coding - 84109 Large joint: 58695 - Large joint ([id number])
--- OUTSIDE RECORDS SUMMARY | 2024-12-13 08:54 | XMS_ITS | Encounter Summary ---
Author Organization [employer] Address [address] [facility] [address] [place] [address] Care Team Providers Care Product Support Analyst Name Role Phone Imelda Rae Primary Care Provider [phone] Reason for Visit * Reason Comments Med Change Request Encounter Details Date Type Department Care Team ([facility] Contact Info) Description 12/07/2024 Refill [facility] MED[facility] [address] [place] [address] Imelda Rae ANP [address] [place] [address] Polyarthralgia Social History Tobacco Use Types Packs/Day Years Used Date Smoking Tobacco: Never Smokeless Tobacco: Never Alcohol Use Standard Drinks/Week Comments Never 0 (1 standard drink = 0.6 oz pur e alcohol) Depression Answer Date Recorded Patient Health Questionnaire-9 Score 0 12/14/2023 Patient Health Questionnaire-9 Score 0 12/14/2023 Last PHQ-9: Questionnaire Data Not on file 0 12/14/2023 Housing Stability Answer Date Recorded What is your housing situation today? I have silvia mcdonough 11/23/[address] you li ve. Do you have problems with any of the following? None of the above 11/23/2023 Food Insecurity Answer Date Recorded Within the past 12 months, y ou worried that your food would run out before you got money to buy more: Never True 11/23/2023 Within the past 12 months,th e food you bought just didn't last and you didn't have enough money to get more: Never True Transportation Answer Date Recorded In the past 12 months, has l ack of transportation kept you from medical appts, meetings, work or from getting things needed for daily living? No 11/23/2023 Utilities Answer Date Recorded In the past 12 months, has t he electric, gas, oil or water company threatened to shut off services in your home? No 11/23/2023 Depression Answer Date Recorded Patient Health Questionnaire-2 Score 0 12/14/2023 Internet Access Answer Date Recorded Internet Access Q1 Yes 07/24/2024 Internet Access Q2 Not on file 07/24/2024 Comments No Sex and Gender Information Value Date Recorded Sex Assigned at Female 08/03/2022 10:36 AM EDT Legal Sex Female 10:36 AM EDT Gender Identity Female 08/03/2022 10:36 AM EDT Sexual Orientation Straight 08/03/2022 10 :36 AM EDT documented as of this encounter Plan of Treatment Upcoming Encounters Date Type Department Care Team (Late st Contact Info) Description 01/02/2025 9:00 AM EDT Office Visit [facility] [address] [place] [address] Garcia-Watts, Maria A, DDS [address] [place] [address] 03/27/2025 8:00 AM EDT Office Visit [facility] [address] [place] [address] Clayton, Elizabeth [address] [place] [address] documented as of this encounter Visit Diagnoses Diagnosis Polyarthralgia Pain in joint, multiple sites documented in this encounter Additional Health Concerns Assessment Noted Time PHQ-9 Depression Total Score: 0 12/14/19 24 10:24 AM EDT documented as of this encounter Care Teams Product Support Analyst Relationship Specialty Start Date End Date Imelda Rae ANP [address] [place] [address] PCP - General Family Medicine 12/01/19 documented as of this encounter
--- OUTSIDE RECORDS SUMMARY | 2024-12-13 08:54 | XMS_ITS | Encounter Summary ---
Author Organization [employer] Address [address] [place] [address] [address] [place] [address] Care Team Providers Care Parts Counter Sales Person Name Role Phone Imelda Rae SHANIQUE Primary Care Provider [phone] Reason for Visit * Reason Comments Acupuncture Encounter Details Date Type Department Care Team ([facility] Contact Info) Description 12/12/2024 1:15 PM EDT Office Visit [facility] MEDICINE [address] [place] [address] Stephanie Waters MD [address] [place] [address] Anxiety (Primary Dx); Dietary counseling; Exercise counseling; Overweight Social History Tobacco Use Types Packs/Day Years [...] AM EDT documented as of this encounter Progress Notes * Stephanie Waters MD - 12/12/2024 1:15 PM EDT She is here for acupuncture treatment #1. She is interested in addressing anxiety and weight loss. She was referred here by seeing one of the advertisements about acupuncture. No previous experience with acupuncture. No anticoagulant therapy. Review of Systems Constitutional: Negative for fever. Musculoskeletal: Negative for back pain. Psychiatric/Behavioral: Negative for agitation and behavioral problems. Objective Physical Exam Constitutional: Appearance: Normal appearance. Musculoskeletal: General: Normal range of motion. Skin: General: Skin is warm and dry. Capillary Refill: Capillary refill takes less than 2 seconds. Neurological: General: No focal deficit present. Mental Status: He is alert and oriented to person, place, and time. Psychiatric: Behavior: Behavior normal. Assessment and Plan: Problem List Items Addressed This Visit Overweight Anxiety - Primary Other Visit Diagnoses Dietary counseling Exercise counseling Written consent obtained for ear acupuncture. Ears prepped with alcohol pad. Five ear points needled bilaterally: Sympathetic, Baldwin Men, Kidney, Liver and Lung. Treatment duration: 30 minutes. Good hemostasis. Patient tolerated well. Follow up weekly for repeat acupuncture treatments as desired. Additional points used: none Ear seeds NOT placed. documented in this encounter Plan of Treatment Upcoming Encounters Date Type Department Care Team (Late st Contact Info) Description 01/02/2025 9:00 AM EDT Office Visit [facility] ADULT DENTAL [address] [place] [address] Maria A Beck, DDS [address] [place] [address] 03/27/2025 8:00 AM EDT Office Visit [facility] ADULT DENTAL [address] [place] [address] Gerardo Arnoldaris [address] [place] [address] documented as of this encounter Visit Diagnoses Diagnosis Anxiety- Primary Anxiety state, unspecified Dietary counseling Dietary surveillance and counseling Exercise counseling Overweight documented in this encounter Additional Health Concerns Assessment Noted Time PHQ-9 Depression Total Score: 0 12/14/19 24 10:24 AM EDT documented as of this encounter Care Teams Parts Counter Sales Person Relationship Specialty Start Date End Date Imelda Rae ANP [address] [place] [id number] PCP - General Family Medicine 12/01/19 documented as of this encounter
--- OUTSIDE RECORDS SUMMARY | 2024-12-13 08:54 | XMS_ITS | Encounter Summary ---
Author Organization [employer] [facility] Address [address] [place] [address] [address] [place] [address] Care Team Providers Care Engine Repairer Production Name Role Phone Imelda Rae Primary Care Provider [phone] Encounter Details Date Type Department Care Team (Latest Contact Info) Description 07/26/2020 Abstract [facility] CONVERSIONS Dental, Provider, DDS Social History Tobacco [...] Care Team ( st Contact Info) Description 01/02/2025 9:00 AM EDT Office Visit [facility] ADULT DENTAL [address] [place] [address] Garcia-Watst, Maria A, DDS [address] [place] [address] 03/27/2025 8:00 AM EDT Office Visit [facility] ADULT DENTAL [address] [place] [address] Clayton, Elizabeth [address] [place] [address] documented as of this encounter Visit Diagnoses Not on filedocumented in this encounter Care Teams Engine Repairer Production Relationship Specialty Start Date End Date Imelda Rae ANP [address] [place] [address] PCP - General Family Medicine 12/01/19 documented as of this encounter
--- OUTSIDE RECORDS SUMMARY | 2024-12-13 08:54 | XMS_ITS | Encounter Summary ---
Author Organization [employer] Address [address] [facility] [address] [place] [address] Care Team Providers Care Beater Tender Name Role Phone Imelda Rae SHANIQUE Primary Care Provider [phone] Encounter Details Date Type Department Care Team (Latest Contact Info) Description 12/12/2024 Travel Social History Tobacco Use Types Packs/Day Years [...] Description 01/02/2025 9:00 AM EDT Office Visit [facility] [address] [place] [address] Maria A Beck, DDS [address] [place] [address] 03/27/2025 8:00 AM EDT Office Visit [facility] [address] [place] [address] Clayton, Elizabeth [address] [place] [address] documented as of this encounter Visit Diagnoses Not on filedocumented in this encounter Additional Health Concerns Assessment Noted Time PHQ-9 Depression Total Score: 0 12/14/19 24 10:24 AM EDT documented as of this encounter Care Teams Beater Tender Relationship Specialty Start Date End Date Imelda Rae ANP [address] [place] [address] PCP - General Family Medicine 12/01/19 documented as of this encounter
--- OUTSIDE RECORDS SUMMARY | 2024-12-13 08:54 | XMS_ITS | Clinical Summary ---
Author Organization [employer] Address [address] [place] [address] [address] [place] [address] Care Team Providers Care Construction Cost Estimator Name Role Phone Ruby Menendez SHANIQUE Primary Care Provider [phone] Allergies Active Allergy Reactions Criticality Noted Date Comments Morphine Anxiety Low 11/13/2022 Medications multivitamin with minerals (Centrum) 9-200 mg-mcg tablet split tablet take i vitamin daily 06/18/20 20 Active acetaminophen (Tylenol 8 Hour) 650 MG ER tablet Take 2 tablets by mouth every 8 (eight) hours. 02/28/20 22 Active lidocaine (Lidoderm) 5 % patch Place 1 patch on the skin at bed time. 05/27/20 21 Active zoster vaccine-recombin ant adjuvanted (Shingrix) 50 MCG/0.5ML vaccine Inject 0.5 mL into the shoulder, thigh, or buttocks. 12/26/19 22 Active Polysaccharide Iron Complex 100 MG/5ML liquid Active amoxicillin-clav ulanate (Augmentin) 875-125 MG tablet TOME ANU TABLETA CADA 12 HORAS POR 7 D 08/31/20 22 Active ascorbic acid (Vitamin C) 250 MG chewable tablet daily. Active Levonorgestrel 20 MCG/DAY intrauterine device TO BE INSERTED ONE TIME BY PRESCRIBER. ROUTE INTRAUTERINE . 01/28/20 22 Active tranexamic acid (Lysteda) 650 MG tablet tabletIndication s:Menorrhagia with regular cycle Take per INTERLACER instructions , at least 2 tabs twice daily for 3d of menses 60 tablet 03/05/20 23 Active Diclofenac Sodium 1 % gelIndications:C hronic pain of right knee APPLY UP TO CUATRO VECES AL JW TO AFFECTED JOINT(S) FOR PAIN/SWELLIN G 100 g 2 06/22/20 24 Active DULoxetine (Cymbalta) [address] capsuleIndicatio ns:Other chronic pain TAKE 1 CAPSULE BY MOUTH EVERY MORNING 30 capsule 5 08/21/20 24 Active lisinopril 5 MG tabletIndication s:Benign essential hypertension TAKE 1 TABLET BY MOUTH EVERY MORNING 90 tablet 1 10/26/19 25 Active gabapentin (Neurontin) 300 MG capsuleIndicatio ns:Polyarthralgi a TAKE 1 CAPSULES BY MOUTH AT BEDTIME 30 capsule 12/08/19 25 Active gabapentin (Neurontin) 300 MG capsuleIndicatio ns:Polyarthralgi a TAKE 1 CAPSULES BY MOUTH AT BEDTIME 90 capsule 10/09/19 25 025 Discontinued Active Problems Problem Noted Date Diagnosed Date Overweight 12/12/2024 Anxiety 12/12/2024 Excessive attrition of teeth, limited to enamel 03/13/2024 Missing teeth, acquired 03/13/2024 Dental caries 03/13/2024 Family history of colon cancer in mother 024 Overview (08/03/2024): She had an upper endoscopy and colonoscopy done on 04/28/21. Findings: IMPRESSION: 1. Small hiatal hernia. 2. Rule out celiac disease. 3. Diverticulosis. 4. Internal hemorrhoids. PLAN: The results of the biopsy will be checked. repeat colonoscopy in 5 years given her significant family history of colon cancer in her mother at age 50 Cardiovascular event risk 11/04/2022 Overview (11/04/2022): 10-yr ASCVD 1.6-2.2% (low) Diverticular disease of colon 10/29/2022 Iron deficiency anemia 10/29/2022 Anemia 06/13/2020 Resolved Problems Problem Noted Date Diagnosed Date Resolved Date Benign essential hypertension 06/26/2020 06/29/2024 Encounters Date Type Department Care Team Description 12/12/2024 1:15 PM EDT Office Visit [facility] [address] [place] [phone] Stephanie Waters MD Anxiety (Primary Dx); Dietary counseling; Exercise counseling; Overweight 12/12/2024 Travel 12/07/2024 Refill [facility] [address] [place] [address] Ruby Menendez ANP Polyarthralgia 11/02/2024 Telephone [facility] [address] [place] [phone] Ruby Menendez ANP 11/01/2024 Telephone [facility] [address] [place] [phone] Nan Babcock MA chart prep 10/27/2024 11:00 AM EST Nutrition [facility] DIABETES/NUTRITION [address] [place] [address] Primary hypertension; Overweight (BMI 25.0-29.9) 10/27/2024 Travel 10/26/2024 2:00 PM EST Office Visit [facility] [address] [place] [phone] Garcia-Watts, Maria A, DDS Ill-fitting dentures (Primary Dx) 10/26/2024 Refill [facility] [address] [place] [phone] Ruby Menendez ANP Benign essential hypertension 10/25/2024 9:00 AM EST Office Visit [facility] [address] [place] [phone] Elizabeth Anrold Bruxism (Primary Dx); Missing teeth, acquired; Excessive attrition of teeth, limited to enamel 10/06/2024 Refill [facility] [address] [place] [phone] Ruby Menendez ANP Polyarthralgia 09/15/2024 Telephone [facility] [address] [place] [phone] Ruby Menendez ANP from Last 3 Months Immunizations Name Administration Dates Next Due Hep B, adult 03/17/2024,06/18/2020 Influenza injectable quadriv alent preservative free 07/29/2023,11/13/2022,06/26/2020,2019 Influenza, IIV3, injectable 06/10/2021, Influenza, intradermal, quad rivalent, preservative free 06/10/2021 Influenza, seasonal, injecta ble, preservative free 08/03/2024 Moderna Covid-19 Vaccine 12+ 04/29/2022, 11/01/2021,03/08/2021,2020 Moderna Covid-19 Vaccine 6+ Bivalent 10/29/2022 Tdap 11/24/2019 Zoster, Recombinant 03/18/2022,01/07/2022 Family History Medical History Relation Name Comments Diabetes Father Hypertension Father Colon cancer Mother Relation Name Status Comments Father Mother Social History Tobacco Use Types Packs/Day Years Used Date Smoking Tobacco: Never Smokeless Tobacco: Never Tobacco Cessation:Counseling Given: Not Answered Alcohol Use Standard Drinks/Week Comments Never 0 [...] Orientation Straight 08/03/2022 10 :36 AM EDT Last Filed Vital Signs Vital Sign Reading Time Taken Comments Blood Pressure 134/78 10/25/2024 8:59 AM EST Pulse 100 08/15/2024 11:26 AM EST Temperature 37.2 ??C (98.9 ??F) 08/15/2024 11:[address] Respiratory Rate 20 08/15/2024 11:26 AM EST Oxygen Saturation 98% 03/17/2024 8:57 AM EDT Inhaled Oxygen Concentration - - Weight 71.3 kg (157 lb 3.2 oz) 10/31/2024 4:05 P M EST Height 157.5 cm (5' 2 ) 10/31/2024 4:05 PM EST Body Mass Index 28.75 10/31/2024 4:05 PM EST Plan of Treatment Upcoming Encounters Date Type Department Care Team (Late st Contact Info) Description 01/02/2025 9:00 AM EDT Office Visit [facility] [address] [place] [address] Garcia-Watts, Maria A, DDS [address] [place] [address] 03/27/2025 8:00 AM EDT Office Visit [facility] [address] [place] [address] Clayton, Elizabeth [address] [place] [address] Health Maintenance Due Date Last Done Comments CT Colonography 1971 FIT DNA/Cologuard 1971 FIT 1971 FOBT 1970 Sigmoidoscopy 1970 Pneumococcal Vaccine: 50+ Years (1 of 1 - PCV) 2021 Hepatitis B Vaccines (3 of 3 - 19+ 3-dose series) 05/12/2024 03/17/2024, 06/18/2020 COVID-19 Vaccine ( season) 2024 10/29/2022, 04/29/2022, 11/01/2021, Additional history exists Dental Oral Exam 09/13/2024 03/13/2024 SDOH Screening 11/23/2024 11/23/2023 Depression Screening 12/13/2024 12/14/2023, 12/14/19 Alcohol/Substance Use Screening 03/17/2025 03/17/2024 Dental Prophylaxis 04/25/2025 10/25/2024, 03/13/2024 Mammogram 05/17/2025 05/17/2024, 05/04, 02/04/2023, Additional history exists Dental X-Ray: Bitewings 06/30/2025 06/29/20 24, 03/13/2024, 07/14/2022 Tobacco Screening 12/12/2025 12/12/2024 Colonoscopy 04/28/2026 Colorectal Cancer Screening 04/28/2026 Cervical Cancer Screening 06/17/2026 HPV/Cotest 06/17/2026 06/17/2021, 06/04, 12/01/2019 Pap Smear 06/17/2026 06/17/2021 Dental X-Ray: Full Mouth 03/14/2027 03/13/2024, 07/05 Lipid Panel 11/02/2027 11/02/2022, 05/20/2021 DTaP/Tdap/Td Vaccines (2 - Td or Tdap) 11/24/2029 11/24/2019 RSV Patients and Patients Aged 60 years or older (1 - 1-dose 75+ series) 2046 HIV Screening Completed 11/28/2019 Hepatitis C Screening Completed 11/28/2019 Zoster Vaccines Completed 03/18/2022, 01/07/2022 Influenza Vaccine Completed 08/03/2024, , 11/13/2022, Additional history exists HIB Vaccines Aged Out No longer eligi ble based on patient's age to complete this topic HPV Vaccines Aged Out No longer eligi ble based on patient's age to complete this topic Hepatitis A Vaccines Aged Out No long er eligible based on patient's age to complete this topic IPV Vaccines Aged Out No longer eligi ble based on patient's age to complete this topic Meningococcal Vaccine Aged Out No gage francia eligible based on patient's age to complete this topic RSV under 20 months Aged Out No longe r eligible based on patient's age to complete this topic Rotavirus Vaccines Aged Out No longer eligible based on patient's age to complete this topic Procedures Procedure Name Priority Date/Time Associated Diagnosis Comments ADJUST PARTIAL DENTURE - MAXILLARY Routine 10/26/2024 2:00 PM EST Ill-fitting dentures ADJUST PARTIAL DENTURE - MANDIBULAR Routine 10/26/2024 2:00 PM EST Ill-fitting dentures CASE PRESENTATION, DETAILED AND EXTENSIVE TREATMENT PLANNING Routine 10/25/2024 9:00 AM EST Bruxism Missing teeth, acquired Excessive attrition of teeth, limited to enamel ORAL HYGIENE INSTRUCTIONS Routine 10/25/2024 9:00 AM EST Bruxism Missing teeth, acquired Excessive attrition of teeth, limited to enamel PROPHYLAXIS - ADULT Routine 10/25/2024 9 :00 AM EST BITEWING - SINGLE RADIOGRAPHIC IMAGE Routine 06/29/2024 2:00 PM EDT Full coverage crown needed for root canal-treated tooth Excessive attrition of teeth, limited to enamel BI MAMMOGRAM SCREENING TOMOSYNTHESIS BILATERAL Routine 05/17/2024 11:40 AM EDT INTRAORAL - COMPLETE SERIES OF RADIOGRAPHIC IMAGES Routine 03/13/2024 2:00 PM EDT Excessive attrition of teeth, limited to enamel Missing teeth, acquired Dental caries PERIODIC ORAL EVALUATION - ESTABLISHED PATIENT Routine 03/13/2024 2:00 PM EDT Excessive attrition of teeth, limited to enamel Missing teeth, acquired Dental caries Encounter for dental examination LIPID PANEL, STANDARD Routine 11/02/2022 8:52 AM EST Screening, lipid Z HISTORICAL HPV E6/E7 RFLX JULIAN 16 18/45 Routine 06/17/2021 11:43 AM EDT HM PAP/HPV Routine 06/17/2021 Z HISTORICAL HEPATITIS C ANTIBODY RFLX Routine 11/28/2019 8:30 AM EST RUST HISTORICAL HIV AB/AG Routine 11/28/2019 8:30 AM EST from Last 3 Months or Most Recently Relevant to Health Maintenance Results * BI Mammogram Screening Tomosynthesis Bilateral (05/17/2024 11:40 AM EDT) Anatomical Region Laterality Modality Breast Bilateral Mammography 05/17/2024 11:4 0 AM EDT Narrative 06/08/2024 4:19 PM EDT ? [facility] ? [address] [place] [address] ? Mammography Report ? Signed ? Patient: Napoleon Siurano,Silma ?MR#: M ?? [id number] ? : 1970 ?Acct:[id number] ? Age/Sex: 53 / F ?ADM Date: 05/17/24 ? Loc: HO.MAMMO ? Attending Dr: Ruby Menendez TIE KNITTER HELPER ? Ordering Physician: RUBY MENENDEZ NP ?Results: 2Benign Fin ?? dings ? Date of Service: 05/17/24 ?Follow Up: 1 Year From Orig ?? inal Mammogram ? Procedure(s): MM tomosynthesis screening BI ?? Accession Number(s): [id number] ? cc: SHON,RUBY GIL ? EXAMINATION: ?? MM SCREENING DIGITAL BREAST TOMOSYNTHESIS, BILATERAL ? CLINICAL INFORMATION: ? Screening. Asymptomatic. ? COMPARISON: ?? Mammography: This study is compared with prior exams dating back to ? 2020. ? TECHNIQUE: ?? Digital breast tomosynthesis is performed in both the craniocaudal and ?? mediolateral oblique views along with computer-aided detection (CAD). ? Synthesized 2D images are generated from the tomosynthesis. ? FINDINGS: ?? There are scattered areas of fibroglandular density (ACR BI-RADS breast ?? composition Category b). ? There are no significant masses, abnormal calcifications, or other ?? abnormalities. ?? There is scan unchanged benign mass in the 9:00 region of the left ?? breast. This is known to be benign and has been followed with imaging ?? in previous years. ? MM/MM tomosynthesis screening BI ?? IMPRESSION: ?? No mammographic evidence of malignancy. ? ASSESSMENT: ? BI-RADS BI-RADS 2 - Benign Findings ? RECOMMENDATION: ?? Routine annual mammography screening. ? 1 year F/U ? This examination should not preclude the clinical evaluation of a ?? suspicious palpable abnormality. ? This patient's information was entered into a reminder system with a ?? target due date for their next mammogram. ? Electronically signed by: ??Bethany Simon MD ??06/08/2024 04:17 PM EDT RP ? Dictated By: ?Bethany Simon MD ? Signed By: ?<Electronically signed by Bethany Simon MD in OV> ? 06/08/24 1617 ? DD/ 1140 ? TD/TT: 05/17/24 1152 ? Senior Clinical Consultant: ? Procedure Note Natalie George - 06/08/2024 [facility] [address] [place] [address] Mammography Report Signed Patient: Khadar Sullivan#: M [id number] : 1970Acct:[id number] Age/Sex: 53 / FADM Date: 05/17/24 Loc: HO.MAMMO Attending Dr: Ruby Menendez TIE KNITTER HELPER Ordering Physician: RUBY MENENDEZults: 2Byoli arguello Date of Service: 05/17/24Follow Up: 1 Year From Orig inal Mammogram Procedure(s): MM tomosynthesis screening BI Accession Number(s): [id number] cc: RUBY MENENDEZ TIE KNITTER HELPER EXAMINATION: MM SCREENING DIGITAL BREAST TOMOSYNTHESIS, BILATERAL CLINICAL INFORMATION: Screening. Asymptomatic. COMPARISON: Mammography: This study is compared with prior exams dating back to 2020. TECHNIQUE: Digital breast tomosynthesis is performed in both the craniocaudal and mediolateral oblique views along with computer-aided detection (CAD). Synthesized 2D images are generated from the tomosynthesis. FINDINGS: There are scattered areas of fibroglandular density (ACR BI-RADS breast composition Category b). There are no significant masses, abnormal calcifications, or other abnormalities. There is scan unchanged benign mass in the 9:00 region of the left breast. This is known to be benign and has been followed with imaging in previous years. MM/MM tomosynthesis screening BI IMPRESSION: No mammographic evidence of malignancy. ASSESSMENT: BI-RADS BI-RADS 2 - Benign Findings RECOMMENDATION: Routine annual mammography screening. 1 year F/U This examination should not preclude the clinical evaluation of a suspicious palpable abnormality. This patient's information was entered into a reminder system with a target due date for their next mammogram. Electronically signed by: Bethany Simon MD 06/08/2024 04:17 PM EDT Dictated By: Bethany Simon MD Signed By: <Electronically signed by Bethany Simon MD in OV> 06/08/24 1617 DD/ 1140 TD/TT: 05/17/24 1152 Senior Clinical Consultant: Ruby BAY Katty BI PROCEDURES Final Result * (ABNORMAL) Lipid Panel, Standard (11/02/2022 8:52 AM EST) Cholesterol, Total 211(H) <200 mg/dL [facility] HDL Cholesterol 60 > OR = 50 mg/dL [facility] Triglycerides 91 <150 mg/dL [facility] [place] [email or web address] LDL Cholesterol 132(H) mg/dL (calc) [facility] Comment: Reference range: <100 Desirable range <100 mg/dL for primary prevention; ?? <70 mg/dL for patients with CHD or diabetic patients with > or = 2 CHD risk factors. LDL-C is now calculated using the Bhaskar-Jewell calculation, which is a validated novel method providing better accuracy than the Friedewald equation in the estimation of LDL-C. Bhaskar SS et al. FLETCHER. 2013;310(19): 5391-0945 (http://education.Neovasc/faq/WZL887) Chol/HDLC Ratio 3.5 <5.0 (calc) [email or web address] Non-HDL Cholesterol 151(H) <130 mg/dL (calc) [email or web address] Comment: For patients with diabetes plus 1 major ASCVD risk factor, treating to a non-HDL-C goal of <100 mg/dL (LDL-C of <70 mg/dL) is considered a therapeutic option. Blood Venous blood specimen / Unknown 11/02/2022 8:52 AM EST 11/02/2022 8:53 AM EST Narrative [facility] - 11/02/2022 7:55 PM EST FASTING:YES FASTING: YES [facility] LAB BLOOD ORDERABLES Final Resul t [facility] [address], [place] [address] [email or web address] 200 [facility], (N[address]) [place] [address] * HPV E6/E7 RFLX JULIAN 16 18/45 (06/17/2021 11:43 AM EDT) HPV 16 RNA [facility] HPV 18/45 RNA [facility] HPV E6 E7 ADD [facility] HPV mRNA E6/E7 rflx Not Detected Not Detected [facility] Comment: Methodology: Performance Improvement Director-Mediated Amplification This assay detects E6/E7 viral messenger RNA (mRNA) from 14 high-risk HPV types (16,18,31,33,35,39,45,51,52,56,58,59,66,68). The analytical performance characteristics of this assay have been determined by [facility]. The modifications have not been cleared or approved by the FDA. This assay has been validated pursuant to the CLIA regulations and is used for clinical purposes. For additional information, please refer to http://education.Interact Public Safety/faq/NNN569u6 (This link if provided for information/ educational purposes only.) THIS TEST WAS PERFORMED AT: [facility] [address] [place] [address] [address] [place], [place] ??[address] TARIQ ALVAREZ MD 06/17/2021 11:4 3 AM EDT Duy Celeste MD HISTORICAL/NON ORDERABLE LABS Fi nal Result Performing Organization Address [facility] Co de Phone Number [facility] [address] * Hm Pap Smear (06/17/2021) Historical Provider HEALTH MAINTENANCE Final Result * HEPATITIS C ANTIBODY RFLX (11/28/2019 8:30 AM EST) Pathologist [facility] HEPATITIS C ANTIBODY NONREACTIVE NON[facility] Comment: Antibodies to HCV not detected; does not exclude early acute HCV infection. 11/28/2019 8:30 AM EST Ruby BAY HISTORICAL/NON ORDERABLE LABS Fi nal Result Performing Organization Address [facility] Phone Number [facility] Critical access hospital [address] * HIV AB/AG (11/28/2019 8:30 AM EST) Pathologist [facility] HIV AG/AB NONREACTIVE [facility] Comment: HIV-1 p24 Ag and/or HIV-1/HIV-2 Ab not detected. ?? A test result that is nonreactive does not exclude the possibility of exposure to or infection with HIV-1 and/or HIV-2. Nonreactive results in this assay for individuals with prior exposure to HIV-1 and/or HIV-2 may be due to antigen and antibody levels that are below the limit of detection of this assay. ?? The [employer] HIV Ag/Ab Combo assay result and supplemental assay results should be interpreted in conjunction with the patient's clinical presentation, history and other laboratory results. ??If the results are inconsistent with clinical evidence, additional testing is suggested to confirm the result. 11/28/2019 8:30 AM EST us Ruby Menendez ANP HISTORICAL/NON ORDERABLE LABS Fi nal Result [facility] [address] from Last 3 Months or Most Recently Relevant to Health Maintenance Insurance [facility] C[facility] [place] [facility] STAND ADULT Care Teams Construction Cost Estimator Relationship Specialty Start Date End Date Ruby Menendez ANP [address] [place] [phone] PCP - General Family Medicine 12/01/19
--- OUTSIDE RECORDS SUMMARY | 2024-12-13 08:54 | XMS_ITS | Encounter Summary ---
Author Organization [facility] Address [address] [place] [address] [address], [place] [address] Care Team Providers Care Miniature Model Maker Name Role Phone Imelda Rae Primary Care Provider [phone] Reason for Visit * Reason Comments Med Change Request Encounter Details Date Type Department Care Team (Late st Contact Info) Description 05/29/2023 Refill [facility] [address] [place] [address] Imelda Rae ANP [address] [place] [address] Menorrhagia with regular cycle Social History Tobacco [...] Description 01/02/2025 9:00 AM EDT Office Visit [facility] [address] [place] [address] Maria A Beck DDS [address] [place] [address] 03/27/2025 8:00 AM EDT Office Visit [facility] [address], [place] [phone] Elizabeth Arnold [address] [place] [address] documented as of this encounter Visit Diagnoses Diagnosis Menorrhagia with regular cycle documented in this encounter Additional Health Concerns Assessment Noted Time PHQ-9 Depression Total Score: 0 10/29/19 23 11:10 AM EST documented as of this encounter Care Teams Miniature Model Maker Relationship Specialty Start Date End Date Imelda Rae ANP [address] [place] [address] PCP - General Family Medicine 12/01/19 documented as of this encounter
--- OUTSIDE RECORDS SUMMARY | 2024-12-13 08:54 | XMS_ITS | Encounter Summary ---
Author Organization [employer] [facility] Address [address] [place] [address] [address] [place] [address] Care Team Providers Care Mica Machine Operator Name Role Phone Imelda Rae Primary Care Provider [phone] Encounter Details Date Type Department Care Team (Latest Contact Info) Description 05/21/2021 Abstract [facility] CONVERSIONS Dental, Provider, DDS Social History [...] Description 01/02/2025 9:00 AM EDT Office Visit [facility] [address] [place] [address] Garcia-Watts, Maria A, DDS [address] [place] [address] 03/27/2025 8:00 AM EDT Office Visit [facility] [address] [place] [address] Clayton, Elizabeth [address] [place] [address] documented as of this encounter Visit Diagnoses Not on filedocumented in this encounter Care Teams Mica Machine Operator Relationship Specialty Start Date End Date Imelda Rae ANP [address] [place] [phone] PCP - General Family Medicine 12/01/19 documented as of this encounter
--- OUTSIDE RECORDS SUMMARY | 2024-12-13 08:54 | XMS_ITS | Patient Health Record ---
Author Organization [facility] Address [address] [place] [address] Care Team Providers Care Infrastructure Developer Name Role Phone RUBY MENENDEZ N.P. Primary Care Provider Dylon Berry Unavailable [phone] KATHRYN HOFF Unavailable Unavailable Reason For Referral [...] Risk Notes Problem Diverticular disease of colon (969453701) Diverticulosis of large intestine without perforation or abscess without bleeding (K57.30) Active confirmed Problem 77148546 Iron deficiency anemia, unspecified iron deficiency anemia type (D50.9) Active confirmed Problem [id number] Family history o f colon cancer in mother (Z80.0) Active confirmed Plan Of Treatment Pending Test Test Name Order Date Pathology 04/28/2021 Future Test Test Name Order Date UPPER GI ENDOSCOPY 01/31/2021 COLONOSCOPY 01/31/2021 Next Appt Details Provider Name:Dylon Arreola , 03/01/2025 09:20:00 AM, [address], [address], [place], [address], Insurance Providers Payer Name Payer Address Payer Phone Subscriber Number Group Number Insured Name Patient Relationship to Insured Coverage Start Date Coverage End Date MEDICAID OF [employer] [address] [place] [phone] [id number] NESS SNELL Self - patient is the insured Medical (General) History Medical History History ICD Code Hypertension Anemia--sees Dr. Lynne--has had 2 iron infusions 12/2020--can't tolerate po Iron Heavy menses by her report Kidney stones Denies CO,DM,CVA,Lung disease,renal dise ase Surgical History Surgery Date(Month/Year) BARIATRIC SURGERY IN [place]-[facility] [place] 2018 1991,1992,1995 Surgery on broken left arm
--- OUTSIDE RECORDS SUMMARY | 2024-12-13 08:54 | XMS_ITS | Encounter Summary ---
Author Organization [facility] Address [address] [place] [address] 7 [place] [address] Care Team Providers Care Apprise Counselor Name Role Phone Imelda Rae Primary Care Provider [phone] Encounter Details Date Type Department Care Team (Late Contact Info) Description 06/25/2023 Orders Only [facility] MEDICINE [address] [place] [address] Provider, MD Joanie Social History Tobacco Use [...] Encounters Date Type Department Care Team (Late Contact Info) Description 01/02/2025 9:00 AM EDT Office Visit [facility] ADULT DENTAL [address] [place] [address] Maria A Beck, DDS [address] [place], [place] [phone] 03/27/2025 8:00 AM EDT Office Visit [facility] ADULT DENTAL [address] [place] [address] Elizabeth Arnold [address] [place] [address] documented as of this encounter Procedures Procedure Name Priority Date/Time Associated Diagnosis Comments HM PAP/HPV Routine 06/17/2021 documented in this encounter Results * Hm Pap Smear (06/17/2021) Historical Provider HEALTH MAINTENANCE Final Result documented in this encounter Visit Diagnoses Not on filedocumented in this encounter Additional Health Concerns Assessment Noted Time PHQ-9 Depression Total Score: 0 10/29/19 23 11:10 AM EST documented as of this encounter Care Teams Apprise Counselor Relationship Specialty Start Date End Date Imelda Rae ANP [address] [place] [address] PCP - General Family Medicine 12/01/19 documented as of this encounter
== END 2024-12-13 08:47 | disposition home or self-care (01) ==
LOC: HO.HOS 08:27
PROVIDERS: PCP Nurse Practitioner Primary Care; Visit Provider Orthopaedic Surgery
DX: M17.11 Unilateral primary osteoarthritis, right knee (principal)
CPT/HCPCS: 20610

== ENCOUNTER → 2024-12-13 08:26 | Outpatient (BNVA) | payer MEDICAID, SELFPAY | PROVIDERS: PCP Nurse Practitioner Primary Care; Visit Provider Orthopaedic Surgery | DX: M17.11 Unilateral primary osteoarthritis, right knee (principal) | CPT/HCPCS: 20610; J2003; J7323 ==

== ENCOUNTER 2024-12-20 07:31 | Outpatient (AMB) | payer MEDICAID, SELFPAY ==
--- OUTSIDE RECORDS SUMMARY | 2024-12-20 07:35 | XMS_ITS | Encounter Summary ---
Author Organization [facility] Address [address] [place] [address] 7 [place] [address] Care Team Providers Care Building And Grounds Supervisor Name Role Phone Imelda Rae Primary Care Provider [phone] Encounter Details Date Type Department Care Team (Latest Contact Info) Description 05/21/2021 Abstract [facility] Dental, Provider, DDS Social History Tobacco [...] Description 01/02/2025 9:00 AM EDT Office Visit [facility] ADULT DENTAL [address] [place] [address] Garcia-Watts, Maria A, DDS [address] [place] [address] 03/27/2025 8:00 AM EDT Office Visit [facility] ADULT DENTAL [address] [place] [address] Clayton, Elizabeth [address] [place] [address] documented as of this encounter Visit Diagnoses Not on filedocumented in this encounter Care Teams Building And Grounds Supervisor Relationship Specialty Start Date End Date Imelda Rae ANP [address] [place] [address] PCP - General Family Medicine 12/01/19 documented as of this encounter
--- OUTSIDE RECORDS SUMMARY | 2024-12-20 07:35 | XMS_ITS | Encounter Summary ---
Author Organization [employer] Address [address] [facility] 7t [place] [address] Care Team Providers Care Fuel Efficient Automobile Designer Name Role Phone Imelda Rae Primary Care Provider [phone] Encounter Details Date Type Department Care Team ([facility] st Contact Info) Description 12/15/2024 Population Health Risk Score [facility] () Department [address] [place] [address] Provider, Population Health Generic Social History Tobacco Use Types Packs/Day Years [...] Description 01/02/2025 9:00 AM EDT Office Visit [facility] ADULT DENTAL [address] [place] [address] Maria A Beck DDS [address] [place] [address] 03/27/2025 8:00 AM EDT Office Visit [facility] ADULT DENTAL [address] [place] [address] Clayton, Elizabeth [address] [place] [address] documented as of this encounter Visit Diagnoses Not on filedocumented in this encounter Additional Health Concerns Assessment Noted Time PHQ-9 Depression Total Score: 0 12/14/19 24 10:24 AM EDT documented as of this encounter Care Teams Fuel Efficient Automobile Designer Relationship Specialty Start Date End Date Imelda Rae ANP [address] [place] [address] PCP - General Family Medicine 12/01/19 documented as of this encounter
--- OUTSIDE RECORDS SUMMARY | 2024-12-20 07:35 | XMS_ITS | Encounter Summary ---
Author Organization [facility] Address [address] [place] [address] [facility] [place] [address] Care Team Providers Care Bit Sharpener Operator Name Role Phone Imelda Rae Primary Care Provider [phone] Encounter Details Date Type Department Care Team (Latest Contact Info) Description 07/26/2020 Abstract [facility] CONVERSION[facility] Dental, Provider, DDS Social History [...] Description 01/02/2025 9:00 AM EDT Office Visit [facility] ADULT DENTAL [address] [place] [address] Garcia-Watts, Maria A, DDS [address] [place] [address] 03/27/2025 8:00 AM EDT Office Visit [facility] ADULT DENTAL [address] [place] [address] Clayton, Elizabeth [address] [place] [address] documented as of this encounter Visit Diagnoses Not on filedocumented in this encounter Care Teams Bit Sharpener Operator Relationship Specialty Start Date End Date Imelda Rae ANP [address] [place] [address] PCP - General Family Medicine 12/01/19 documented as of this encounter
--- OUTSIDE RECORDS SUMMARY | 2024-12-20 07:36 | XMS_ITS | Encounter Summary ---
Author Organization [facility] Address [address] [place] [address] 7 [place] [address] Care Team Providers Care Net Development Manager Name Role Phone Imelda Rae Primary Care Provider [phone] Encounter Details Date Type Department Care Team (Late Contact Info) Description 06/25/2023 Orders Only [facility] MEDICINE [address] [place] [address] Provider, MD Joanie Social History Tobacco Use [...] Description 01/02/2025 9:00 AM EDT Office Visit [facility] ADULT DENTAL [address] [place] [address] Maria A Beck, DDS [address] [place], [place] [phone] 03/27/2025 8:00 AM EDT Office Visit [facility] ADULT DENTAL [address] [place] [address] Elizabeth Arnold [address] [place] [address] documented as of this encounter Procedures Procedure [...] documented as of this encounter Care Teams Net Development Manager Relationship Specialty Start Date End Date Imelda Rae ANP [address] [place] [address] PCP - General Family Medicine 12/01/19 documented as of this encounter
--- OUTSIDE RECORDS SUMMARY | 2024-12-20 07:36 | XMS_ITS | Encounter Summary ---
Author Organization [employer] Address [address] [facility] 7t [place] [address] Care Team Providers Care Hardening Machine Operator Name Role Phone Imelda Rae SHANIQUE Primary Care Provider [phone] Encounter Details Date Type Department Care Team [...] Description 01/02/2025 9:00 AM EDT Office Visit [facility] ADULT DENTAL [address] [place] [address] Maria A Beck, DDS [address] [place] [address] 03/27/2025 8:00 AM EDT Office Visit [facility] ADULT DENTAL [address] [place] [address] Clayton, Elizabeth [address] [place] [address] documented as of this encounter Visit Diagnoses Not on filedocumented in this encounter Additional Health Concerns Assessment Noted Time PHQ-9 Depression Total Score: 0 12/14/19 24 10:24 AM EDT documented as of this encounter Care Teams Hardening Machine Operator Relationship Specialty Start Date End Date Imelda Rae ANP [address] [place] [address] PCP - General Family Medicine 12/01/19 documented as of this encounter
--- OUTSIDE RECORDS SUMMARY | 2024-12-20 07:36 | XMS_ITS | Encounter Summary ---
Author Organization [employer] [facility] Address [address] [place] [address] [address] [address] Care Team Providers Care Design Painter Name Role Phone Imelda Rae Primary Care Provider [phone] Reason for Visit * Reason Comments Med Change Request Encounter Details Date Type Department Care Team (Late st Contact Info) Description 05/29/2023 Refill [facility] MEDICINE [address] [place] [address] Imelda Rae ANP [address] [place] [address] Menorrhagia with regular cycle Social History Tobacco [...] Description 01/02/2025 9:00 AM EDT Office Visit [facility] ADULT DENTAL [address] [place] [address] Maria A Beck DDS [address] [place] [address] 03/27/2025 8:00 AM EDT Office Visit [facility] ADULT DENTAL [address] [place], [place] [phone] Elizabeth Arnold [address] [place] [address] documented as of this encounter Visit Diagnoses Diagnosis Menorrhagia with regular cycle documented in this encounter Additional Health Concerns Assessment Noted Time PHQ-9 Depression Total Score: 0 10/29/19 23 11:10 AM EST documented as of this encounter Care Teams Design Painter Relationship Specialty Start Date End Date Imelda Rae ANP [address] [place] [address] PCP - General Family Medicine 12/01/19 documented as of this encounter
--- OUTSIDE RECORDS SUMMARY | 2024-12-20 07:36 | XMS_ITS | Encounter Summary ---
Author Organization [employer] Address [address] [facility] 7 [place] [address] Care Team Providers Care Assembler Dielectric Heater Name Role Phone Imelda Rae Primary Care Provider [phone] Reason for Visit * Reason Comments Med Change Request Encounter Details Date Type Department Care Team ([facility] Contact Info) Description 12/07/2024 Refill [facility] MEDICINE [address] [place] [address] Imelda Rae ANP [address] [place] [address] Polyarthralgia Social History Tobacco Use Types Packs/Day [...] Description 01/02/2025 9:00 AM EDT Office Visit [facility] ADULT DENTAL [address] [place] [address] Garcia-Watts, Maria A, DDS [address] [place] [address] 03/27/2025 8:00 AM EDT Office Visit [facility] ADULT DENTAL [address] [place] [address] Clayton, Elizabeth [address] [place] [address] documented as of this encounter Visit Diagnoses Diagnosis Polyarthralgia Pain in joint, multiple sites documented in this encounter Additional Health Concerns Assessment Noted Time PHQ-9 Depression Total Score: 0 12/14/19 24 10:24 AM EDT documented as of this encounter Care Teams Assembler Dielectric Heater Relationship Specialty Start Date End Date Imelda Rae ANP [address] [place] [address] PCP - General Family Medicine 12/01/19 documented as of this encounter
--- OUTSIDE RECORDS SUMMARY | 2024-12-20 07:36 | XMS_ITS | Patient Health Record ---
Author Organization [facility] Address [address] [place] [address] Care Team Providers Care Automotive Quality Engineer Name Role Phone RUBY MENENDEZ N.P. Primary Care Provider Dylon Berry Unavailable [phone] KATHRYN HOFF Unavailable Unavailable Reason For Referral [...] Risk Notes Problem Diverticular disease of colon (811544588) Diverticulosis of large intestine without perforation or abscess without bleeding (K57.30) Active confirmed Problem 09227541 Iron deficiency anemia, unspecified iron deficiency anemia type (D50.9) Active confirmed Problem 290320943 Family history o f colon cancer in mother (Z80.0) Active confirmed Plan Of Treatment Pending Test Test Name Order Date Pathology 04/28/2021 Future Test Test Name Order Date UPPER GI ENDOSCOPY 01/31/2021 COLONOSCOPY 01/31/2021 Next Appt Details Provider Name:Dylon Arreola , 03/01/2025 09:20:00 AM, [address], [address], [place], [address], Insurance Providers Payer Name Payer Address Payer Phone Subscriber Number Group Number Insured Name Patient Relationship to Insured Coverage Start Date Coverage End Date [place] [address] [place] [phone] [id number] NESS SNELL Self - patient is the insured Medical (General) History Medical History History ICD Code Hypertension Anemia--sees Dr. Lynne--has had 2 iron infusions 12/2020--can't tolerate po Iron Heavy menses by her report Kidney stones Denies SC,DM,CVA,Lung disease,renal dise ase Surgical History Surgery Date(Month/Year) [place]IATRIC SURGERY IN [place] 2018 1991,1992,1995 Surgery on broken left arm
--- OUTSIDE RECORDS SUMMARY | 2024-12-20 07:36 | XMS_ITS | Encounter Summary ---
Author Organization [employer] Address [address] [place] [address] 7 [place] [address] Care Team Providers Care Filling Carrier Name Role Phone Imelda Rae SHANIQUE Primary Care Provider [phone] Reason for Visit * Reason Comments Acupuncture Encounter Details Date Type Department Care Team ([facility] Contact Info) Description 12/12/2024 1:15 PM EDT Office Visit [facility] MEDICINE [address] [place] [address] Stephanie Waters MD [address] [place] [address] Anxiety (Primary Dx); Dietary counseling; Exercise counseling; [...] Visit [facility] ADULT DENTAL [address] [place] [address] Maria A Beck, DDS [address] [place] [address] 03/27/2025 8:00 AM EDT Office Visit [facility] ADULT DENTAL [address] [place] [address] Gerardo Arnoldaris [address] [place] [address] documented as of this encounter Visit Diagnoses Diagnosis Anxiety- Primary Anxiety state, unspecified Dietary counseling Dietary surveillance and counseling Exercise counseling Overweight documented in this encounter Additional Health Concerns Assessment Noted Time PHQ-9 Depression Total Score: 0 12/14/19 24 10:24 AM EDT documented as of this encounter Care Teams Filling Carrier Relationship Specialty Start Date End Date Imelda Rae ANP [address] [place] [address] PCP - General Family Medicine 12/01/19 documented as of this encounter
[2024-12-20 07:37] VITALS: BMI 27.4
--- NOTE | 2024-12-20 07:37 | MHC.OFFVIS ---
Vital Signs 12/20/24 07:37 Height 5 ft 2 in Weight 150 lb BMI 27.4 Intake Visit Reasons: Inj-Right kNee Euflexxa#3 Intake Note: Khadar is a 54 year old female who presents today for her third dose of Euflexxa gel injection on the right knee. She states that she has gotten fairly good relief from the 1st 2 injections. She continues with her home exercise program. She wishes to hold off on total knee replacement if at all possible. Car Shakeout Operator Required: Yes Car Shakeout Operator Name: [id number] Allergies morphine Adverse Reaction (Verified 12/20/24 07:37) Anxiety Medication List - Last Reconciled 12/20/24 by Glenn Bangura MD acetaminophen ER 650 mg PO Q8H PRN duloxetine (Cymbalta) 1 cap PO DAILY gabapentin 300 mg PO BEDTIME lisinopril 5 mg PO DAILY PFSH Medical History Iron deficiency anemia Kidney stones HTN (hypertension) Anemia Benign essential hypertension Surgical History Status post laparoscopic appendectomy History of laparoscopic appendectomy (~11/20/23) S/P panniculectomy Tubal ligation status History of surgery on arm Delivery by section Hx of bariatric surgery Family History Mother Colon cancer Diabetes Sister Lupus Father Diabetes Hypertension Unknown Breast cancer Social History Household Members: Spouse Housing: Apartment Are you a primary home care consultant to a significant other at home: No Do you presently have visiting nurse or other home services: No Alcohol intake: former Patient Tobacco Use Status: Never used Tobacco service: No Current occupational status: unemployed Current occupation: rt handed Female Reproductive History Menstrual Age of Menarche: 11 Physical Exam Vital Signs: BMI result Body Mass Index 27.4 Extrem Other: Right knee examination shows a minimal effusion, palpable crepitus with range of motion, pain with range of motion, no instability Office Procedures AMB Joint Injection/Aspiration Joint Injection/Aspiration Primary Site: right knee Prep: site was prepped using aseptic technique Injected: 20 mg of (Euflexxa viscosupplementation) and 1% plain lidocaine Procedure: The patient tolerated the procedure well Coding 18491 - Large joint Procedure code (CPT) selection complete Assessment & Plan Assessment & Plan (1) Osteoarthritis of right knee: Code(s): M17.11 - Unilateral primary osteoarthritis, right knee Category: Medical Plan Khadar presents with right knee pain due to osteoarthritis. The risks and benefits of a third Euflexxa viscosupplementation injection were discussed at length with the patient. The patient wished to proceed. She tolerated the injection well. She will continue with her home exercise program. She will contact me prior to her follow-up appointment in 3 months should any questions or concerns arise. Feel free to call me at any time should questions regarding her orthopedic management arise. Orders: Orders AMB Joint Injection/Aspiration Today M17.11 - Unilateral primary osteoarthritis, right knee Coding Level of Care Code Procedure Only Diagnoses Osteoarthritis of right knee M17.11 CPT Codes Coding - 39247 Large joint: 16026 - Large joint ([id number])
== END 2024-12-20 08:02 | disposition home or self-care (01) ==
LOC: HO.HOS 07:33
PROVIDERS: PCP Nurse Practitioner Primary Care; Visit Provider Orthopaedic Surgery
DX: M17.11 Unilateral primary osteoarthritis, right knee (principal)
CPT/HCPCS: 20610

== ENCOUNTER → 2024-12-20 07:31 | Outpatient (BNVA) | payer MEDICAID, SELFPAY | PROVIDERS: PCP Nurse Practitioner Primary Care; Visit Provider Orthopaedic Surgery | DX: M17.11 Unilateral primary osteoarthritis, right knee (principal) | CPT/HCPCS: 20610; J2003; J7323 ==

== ENCOUNTER 2025-05-14 10:08 | Outpatient (AMB) | payer OTHER, SELFPAY ==
--- OUTSIDE RECORDS SUMMARY | 2025-03-01 05:20 | XMS_ITS ---
Author Organization [facility] Address [address] [place] [address] Care Team Providers Care Ed Physicians Name Role Phone RUBY MENENDEZ N.P. Primary Care Provider UnavailDylon Nash Unavailable [phone] KATHRYN HOFF Unavailable Unavailable REASON FOR VISIT Patient presents today for a colon screening Encounters Encounter Location Date Provider Diagnosis [facility] [address] [facility] [address] [place] [address] 03/01/2025 Dylon Arreola Plan Of Treatment Next Appt Details Provider Name:Dylon Arreola , 06/13/2025 01:20:00 PM, [address] [place] [address], [address], [place], [address], Progress Notes * NESS SNELL TDOB: 1970 (54 yo F)Acc No.[id number]:03/01/2025 Progress Notes Patient: Radha CARTER SILOBO ZANDERTAI Esteban Provider: Laney Arreola MD :1970 A ge:54 Y S ex:Female Date:03/01/2025 Address:[address] [place] [address] k[address] [facility] Pcp:RUBY MENENDEZ N.P. Subjective: * Chief Complaints: [...] 03/01/2025 Generated for Calvin reilly/Roshan/Radha on: 0 05/14/2025 10:48 AM EDT
--- NOTE | 2025-05-14 10:09 | MHC.OFFVIS ---
Vital Signs 05/14/25 10:14 Height 5 ft 2 in Weight 160 lb BMI 29.3 Intake Visit Reasons: Right knee pain and giving way Intake Note: Khadar is a 54 year old female who presents with complaints of progressively worsening right knee pain and giving way. The patient states that her pain has gotten worse over the last few years in spite of continued non operative treatments. She has failed the last 6 weeks of conservative treatment which has included Tylenol, anti-inflammatory medicines, gabapentin, a home exercise program and physical therapy exercises. She states that her right knee will give out several times per day. At this point her right knee pain and mechanical symptoms are interfering with her activities of daily living and her ability to sleep well through the night. Track Machine Operator Repairer Required: Yes Track Machine Operator Repairer Services: Track Machine Operator Repairer Present Track Machine Operator Repairer Name: [id number]- Nickolas Bhatt Allergies morphine Adverse Reaction (Verified 05/14/25 10:14) Anxiety Medication List - Last Reconciled 05/14/25 by Glenn Bangura MD acetaminophen ER 650 mg PO Q8H PRN duloxetine (Cymbalta) 1 cap PO DAILY gabapentin 300 mg PO BEDTIME lisinopril 5 mg PO DAILY PFSH Medical History Iron deficiency anemia Kidney stones HTN (hypertension) Anemia Benign essential hypertension Surgical History Status post laparoscopic appendectomy History of laparoscopic appendectomy (~11/20/23) S/P panniculectomy Tubal ligation status History of surgery on arm Delivery by section Hx of bariatric surgery Family History Mother Colon cancer Diabetes Sister Lupus Father Diabetes Hypertension Unknown Breast cancer Social History (Reviewed 12/20/24 @ 07:37 by Jenifer Kemp [facility] [address]) Household Members: Spouse Housing: Apartment Are you a primary urgent care nurse practitioner to a significant other at home: No Do you presently have visiting nurse or other home services: No Alcohol intake: former Patient Tobacco Use Status: Never used Tobacco service: No Current occupational status: unemployed Current occupation: rt handed Female Reproductive History Menstrual Age of Menarche: 11 Physical Exam Vital Signs: BMI result Body Mass Index 29.3 Const Other: Well-nourished well-developed very friendly female awake alert and oriented x3 in no acute distress Extrem Other: Bilateral lower extremity examination shows good capillary refill, no skin lesions noted, normal sensation light touch Right knee examination shows a minimal effusion, mild crepitus with range of motion, tenderness along her medial joint line, positive Kimi's test, no instability Results Reviewed Results Reviewed: X-rays of the patient's right knee taken previously show moderate joint space narrowing, no acute bony abnormalities Assessment & Plan Assessment & Plan (1) Tear of medial meniscus of right knee: Code(s): S83.241A - Other tear of medial meniscus, current injury, right knee, initial encounter Category: Medical Plan Ms. Napoleon Avendano presents with progressively worsening right knee pain and mechanical symptoms due to degenerative joint disease as well as possible medial meniscus tearing. Thus, I will send the patient for an MRI of her right knee to further evaluate the status of her medial meniscus. I will see her back once the MRI is completed to discuss the findings and treatment options. Feel free to call me at any time should questions regarding her orthopedic management arise. I spent 21 minutes in reviewing the patient's records and imaging studies, seeing the patient and documenting in the medical record. Orders: Orders MR knee RT wo con 05/15/25 S83.241A - Other tear of medial meniscus, current injury, right knee, initial encounter Medications: New meloxicam 15 mg PO DAILY PRN 30 tabs 2RF pain Coding Level of Care Code Est Pt Level 3 (88417) Complex EM visit Add On G2211 Diagnoses Tear of medial meniscus of right knee S83.241A
[2025-05-14 10:14] VITALS: BMI 29.3
--- OUTSIDE RECORDS SUMMARY | 2025-05-14 10:48 | XMS_ITS | Clinical Summary ---
Author Organization [employer] Address [address] [place] [address] 7 [place] [address] Care Team Providers Care Regional Cra Name Role Phone Ruby Menendez SHANIQUE Primary Care Provider [phone] Allergies Active Allergy Reactions Criticality Noted Date [...] tabletIndication s:Menorrhagia with regular cycle Take per NETEZZA ARCHITECT instructions , at least 2 tabs twice [...] MORNING 30 capsule 5 08/21/20 24 Active gabapentin (Neurontin) 300 MG capsuleIndicatio ns:Polyarthralgi a TAKE 1 CAPSULES BY MOUTH AT BEDTIME 30 capsule 12/08/19 25 Active lisinopril 5 MG tabletIndication s:Benign essential hypertension TAKE 1 TABLET BY MOUTH EVERY MORNING 90 tablet 1 04/27/20 25 Active lisinopril 5 MG tabletIndication s:Benign essential hypertension TAKE 1 TABLET BY MOUTH EVERY MORNING 90 tablet 1 10/26/19 25 025 Discontinued Active Problems Problem Noted [...] Encounters Date Type Department Care Team Description 04/27/2025 Refill [facility] [address] [place] [address] Ruby Menendez ANP Benign essential hypertension from Last 3 Months Immunizations Immunization Administration Dates Next Due Hep B, adult 03/17/2024,06/18/2020 Influenza injectable quadriv alent preservative free 07/29/2023,11/13/2022,06/26/2020,2019 Influenza, IIV3, injectable 06/10/2021, 0 Influenza, intradermal, quad rivalent, preservative free 06/10/2021 [...] 100 08/15/2024 11:26 AM EST Temperature 37.2 C (98.9 F) 08/15/2024 11:26 AM EST Respiratory Rate 20 08/15/2024 11:26 AM EST [...] Care Team (Late st Contact Info) Description 07/23/2025 9:00 AM EDT Office Visit [facility] OPTOMETRY [address] [place] [address] Bakari, Karli, OD [address] [place] [address] Health Maintenance Due Date Last Done Comments CT Colonography 1971 FIT DNA/Cologuard 1971 FIT 1971 FOBT 1970 Sigmoidoscopy 1971 Disability Screening 1971 Alcohol/Substance Use Screening 1983 Pneumococcal Vaccine: 50+ Years (1 of 1 - PCV) 2021 Hepatitis B Vaccines (3 of 3 - 19+ 3-dose series) 05/12/2024 03/17/2024, 06/18/2020 COVID-19 Vaccine ( season) 2024 10/29/2022, 04/29/2022, 11/01/2021, Additional history exists Dental Oral Exam 09/13/2024 03/13/2024 SDOH Screening 11/23/2024 11/23/2023 Depression Screening 12/13/2024 12/14/2023, 12/14/19 Dental Prophylaxis 04/25/2025 10/25/2024, 03/13/2024 Mammogram 05/17/2025 05/17/2024, 05/04, 02/04/2023, Additional history exists Influenza Vaccine (#1) 2025 , 07/29/2023, 11/13/2022, Additional history exists Dental X-Ray: Bitewings 06/30/2025 [...] Completed 11/28/2019 Zoster Vaccines Completed 03/18/2022, 01/07/2022 HIB Vaccines Aged Out No longer eligi [...] patient's age to complete this topic Meningococcal B Vaccine Aged Out No l onger eligible based on patient's age to complete [...] Procedure Name Priority Date/Time Associated Diagnosis Comments PROPHYLAXIS - ADULT Routine 10/25/2024 9 :00 [...] Routine 11/02/2022 8:52 AM EST Screening, lipid [facility]ZZ HISTORICAL HPV E6/E7 RFLX JULIAN 16 18/45 Routine 06/17/2021 11:43 AM EDT HM PAP/HPV Routine 06/17/2021 ZZZ HISTORICAL HEPATITIS C ANTIBODY RFLX Routine 11/28/2019 8:30 AM EST ZZZ HISTORICAL HIV AB/AG Routine 11/28/2019 8:30 AM EST from Last 3 Months or Most Recently Relevant to Health Maintenance Results * BI Mammogram Screening Tomosynthesis Bilateral (05/17/2024 11:40 AM EDT) Anatomical Region Laterality Modality Breast Bilateral Mammography 05/17/2024 11:4 0 AM EDT Narrative 06/08/2024 4:19 PM EDT [facility] [address] [place] [address] Mammography Report Signed Patient: Khadar Sullivan MR#: [id number] : 1970 Acct:[id number] Age/Sex: 53 / F ADM Date: 05/17/24 Loc: HO.MAMMO Attending Dr: Ruby Menendez NP Ordering Physician: RUBY MENENDEZ NP Results: 2Benign Dwayne arguello Date of Service: 05/17/24 Follow Up: 1 Year From Orig ina Mammogram Procedure(s): MM tomosynthesis screening BI Accession Number(s): [id number] cc: RUBY MENENDEZ NP EXAMINATION: MM SCREENING DIGITAL BREAST TOMOSYNTHESIS, BILATERAL [...] 06/08/24 1617 DD/ 1140 TD/TT: 05/17/24 1152 Monkey Trainer: Procedure Note Donotuseinterpreter, Image - 06/08/2024 [facility] [address] [place] [address] Mammography Report Signed Patient: Khadar Sullivan#: [id number] : 1970Acct:[id number] Age/Sex: 53 / FADM Date: 05/17/24 Loc: HO.MAMMO Attending Dr: Ruby Menendez NP Ordering Physician: RUBY MENENDEZ NPResults: 2Benign Dwayne arguello Date of Service: 05/17/24Follow Up: 1 Year From Orig ina Mammogram Procedure(s): MM tomosynthesis screening BI Accession Number(s): [id number] cc: RUBY MENENDEZ NP EXAMINATION: MM SCREENING DIGITAL BREAST TOMOSYNTHESIS, BILATERAL [...] 06/08/24 1617 DD/ 1140 TD/TT: 05/17/24 1152 Monkey Trainer: Ruby Menendez ANP IMG BI PROCEDURES Final Result * (ABNORMAL) Lipid Panel, Standard (11/02/2022 8:52 AM EST) Cholesterol, Total 211(H) <200 mg/dL [facility] HDL Cholesterol 60 > OR = 50 mg/dL [facility] Triglycerides 91 <150 mg/dL [facility] LDL Cholesterol 132(H) mg/dL (calc) [facility] Comment: Reference range: <100 Desirable range <100 mg/dL for primary prevention; <70 mg/dL for patients with CHD or diabetic patients with > or = 2 CHD risk factors. LDL-C is now calculated using the Gurwinder calculation, which is a validated novel method providing better accuracy than the Friedewald equation in the estimation of LDL-C. Bhaskar SS et al. FLETCHER. 2013;310(19): 0177-0151 (http://education.Eastbeam/faq/BGC840) Chol/HDLC Ratio 3.5 <5.0 (calc) [facility] Non-HDL Cholesterol 151(H) <130 mg/dL (calc) [facility] Comment: For patients with diabetes plus 1 major ASCVD risk factor, treating to a non-HDL-C goal of <100 mg/dL (LDL-C of <70 mg/dL) is considered a therapeutic option. Blood Venous blood specimen / Unknown 11/02/2022 8:52 AM EST 11/02/2022 8:53 AM EST Narrative [facility] - 11/02/2022 7:55 PM EST FASTING:YES FASTING: YES [facility] LAB BLOOD ORDERABLES Final Resul t [facility] [address], [place] [address] [facility] [address] [facility], ([address]) [place] [address] * HPV E6/E7 RFLX JULIAN 16 18/45 (06/17/2021 11:43 AM EDT) HPV 16 RNA [facility] HPV 18/45 RNA [facility] HPV E6 E7 ADD [facility] HPV mRNA E6/E7 rflx Not Detected Not Detected [facility] Comment: Methodology: Grip Wrapper-Mediated Amplification This assay detects E6/E7 viral messenger RNA (mRNA) from 14 high-risk HPV types (16,18,31,33,35,39,45,51,52,56,58,59,66,68). The analytical performance characteristics of this assay have been determined by [facility]. The modifications have not been cleared or approved by the FDA. This assay has been validated pursuant to the CLIA regulations and is used for clinical purposes. For additional information, please refer to http://education.Cenify/faq/LAW227b8 (This link if provided for information/ educational purposes only.) THIS TEST WAS PERFORMED AT: [facility] [address] [place] [address],[place] [address] TARIQ ALVAREZ MD 06/17/2021 11:4 3 AM EDT us Duy Celeste MD HISTORICAL/NON ORDERABLE LABS Fi nal Result Performing Organization Address [facility] de Phone Number [facility] [address] * Hm Pap Smear (06/17/2021) Joanie Provider HEALTH MAINTENANCE Final Result * HEPATITIS C ANTIBODY RFLX (11/28/2019 8:30 AM EST) Pathologist [facility] HEPATITIS C ANTIBODY NONREACTIVE NONREACTIVE [facility] Comment: Antibodies to HCV not detected; does not exclude early acute HCV infection. 11/28/2019 8:30 AM EST Ruby BAY HISTORICAL/NON ORDERABLE LABS Fi nal Result Performing Organization Address [facility] de Phone Number [facility] [address] * HIV AB/AG (11/28/2019 8:30 AM EST) HIV AG/AB NONREACTIVE [facility] Comment: HIV-1 p24 Ag and/or HIV-1/HIV-2 Ab not detected. A test result that is nonreactive does not exclude the possibility of exposure to or infection with HIV-1 and/or HIV-2. Nonreactive results in this assay for individuals with prior exposure to HIV-1 and/or HIV-2 may be due to antigen and antibody levels that are below the limit of detection of this assay. The [employer] HIV Ag/Ab Combo assay result and supplemental assay results should be interpreted in conjunction with the patient's clinical presentation, history and other laboratory results. If the results are inconsistent with clinical evidence, additional testing is suggested to confirm the result. 11/28/2019 8:30 AM EST us Ruby Menendez ANP HISTORICAL/NON ORDERABLE LABS Fi nal Result [facility] [address] from Last 3 Months or Most Recently Relevant to Health Maintenance Insurance [facility] C3 HSN F[facility] D[facility] STAND ADULT Care Teams Regional Cra Relationship Specialty Start Date End Date Ruby Menendez ANP [address] [place] [address] PCP - General Family Medicine 12/01/19
== END 2025-05-14 10:32 | disposition home or self-care (01) ==
LOC: HO.HOS 10:08
PROVIDERS: Visit Provider Orthopaedic Surgery
DX: S83.241A Other tear of medial meniscus, current injury, right knee, initial encounter (principal)
CPT/HCPCS: 99213

== ENCOUNTER → 2025-05-14 10:08 | Outpatient (BNVA) | payer OTHER, SELFPAY | PROVIDERS: Visit Provider Orthopaedic Surgery | DX: M25.561 Pain in right knee (principal); S83.241A Other tear of medial meniscus, current injury, right knee, initial encounter | CPT/HCPCS: 99212 ==

== ENCOUNTER 2025-06-18 15:36 | Outpatient (REF) | payer OTHER, SELFPAY ==
--- OUTSIDE RECORDS SUMMARY | 2025-03-01 05:20 | XMS_ITS ---
Author Organization [facility] Address [address] [place] [address] Care Team Providers Care Layer Off Name Role Phone RUBY MENENDEZ N.P. Primary Care Provider UnavailDylon Nash Unavailable [phone] KATHRYN HOFF Unavailable Unavailable REASON FOR VISIT Patient presents today for a colon screening Encounters Encounter Location Date Provider Diagnosis [facility] [address] [facility] [address] [place] [phone] 03/01/2025 Dylon Arreola Plan Of Treatment Next Appt Details Provider Name:Dylon Arreola , 10/18/2025 09:20:00 AM, [address] [place] [address], [address], [place], [address], Progress Notes * NESS SNELL TDOB: 1970 (54 yo F)Acc No.[id number]:03/01/2025 Progress Notes Patient: Radha CARTER SILOBO ZANDERTAI Esteban Provider: Laney Arreola MD :1970 A ge:54 Y S ex:Female Date:03/01/2025 Address:[address] [place] [address] [address] [facility] Pcp:RUBY MENENDEZ N.P. Subjective: * Chief Complaints: [...] 03/01/2025 Generated for Calvin reilly/Roshan/Radha on: 0 06/18/2025 08:58 PM EDT
--- OUTSIDE RECORDS SUMMARY | 2025-06-13 09:20 | XMS_ITS ---
Author Organization [facility] Address [address] [place] [address] Care Team Providers Care Electrical Power Station Technician Name Role Phone RUBY MENENDEZ N.P. Primary Care Provider UnavailDylon Nash Unavailable [phone] KATHRYN HOFF Unavailable Unavailable REASON FOR VISIT Patient presents today for a colon screening Encounters Encounter Location Date Provider Diagnosis [facility] [address] [place] [phone] 06/13/2025 Dylon Arreola Plan Of Treatment Next Appt Details Provider Name:Dylon Arreola , 10/18/2025 09:20:00 AM, [address] [place] [address], [address], [place], [address], Progress Notes * NESS SNELL TDOB: 1970 (54 yo F)Acc No.[id number]:06/13/2025 Progress Notes Patient: Radha CARTER SILOBO ZANDERTAI Esteban Provider: Laney Arreola MD :1970 A ge:54 Y S ex:Female Date:06/13/2025 Address:[address] [place] [address] [address] [facility] Pcp:RUBY MENENDEZ N.P. Subjective: * Chief Complaints: [...] 0 06/13/2025 Generated for Calvin reilly/Roshan/Radha on: 0 06/18/2025 08:58 PM EDT
--- NOTE | ~2025-06-18 | MM_ITS ---
EXAMINATION: MM SCREENING DIGITAL BREAST TOMOSYNTHESIS, BILATERAL CLINICAL INFORMATION: Screening. Asymptomatic. COMPARISON: Comparison made to multiple prior, most recent May 17, 2024, and most remote December 06, 2019. TECHNIQUE: Digital breast tomosynthesis is performed in mediolateral oblique and craniocaudal views along with computer-aided detection (CAD). Synthesized 2D images are generated from the tomosynthesis. FINDINGS: BREAST COMPOSITION: There are scattered areas of fibroglandular density (ACR BI-RADS breast composition Category b). RIGHT BREAST: No significant masses, suspicious calcifications or other abnormalities are seen. LEFT BREAST: Known benign mass in the lower inner quadrant anterior depth is unchanged from 2020. No significant masses, suspicious calcifications or other abnormalities are seen. MM/MM tomosynthesis screening BI IMPRESSION: BILATERAL BREASTS: Benign, no mammographic evidence of malignancy. Normal interval follow-up is recommended in 12 months. ASSESSMENT: BI-RADS 2 - Benign Findings RECOMMENDATION: Routine annual mammography screening. FOLLOW-UP: 1 year F/U This examination should not preclude the clinical evaluation of a suspicious palpable abnormality. This patient's information was entered into a reminder system with a target due date for their next mammogram. Electronically signed by: Aby Dahl MD 06/19/2025 06:43 PM EDT
--- OUTSIDE RECORDS SUMMARY | 2025-06-18 20:58 | XMS_ITS | Encounter Summary ---
Author Organization [facility] [facility] Address [address] [place] [address] Care Team Providers Care Sign Installer Name Role Phone Imelda Rae Primary Care Provider [phone] Reason for Visit * Reason Comments Med Change Request Encounter Details Date Type Department Care Team (Late st Contact Info) Description 05/29/2023 Refill [facility] [address] [place] [address] Imelda Rae ANP [address] [place] [address] Menorrhagia with regular cycle Social History Tobacco [...] Description 07/23/2025 9:00 AM EDT Office Visit [facility] OPTOMETRY [address] [place] [address] Karli Villegas, OD [address] [place] [address] documented as of this encounter Visit Diagnoses Diagnosis Menorrhagia with regular cycle documented in this encounter Additional Health Concerns Assessment Noted Time PHQ-9 Depression Total Score: 0 10/29/19 23 11:10 AM EST documented as of this encounter Care Teams Sign Installer Relationship Specialty Start Date End Date Imelda Rae ANP [address] [place] [address] PCP - General Family Medicine 12/01/19 documented as of this encounter
--- OUTSIDE RECORDS SUMMARY | 2025-06-18 20:58 | XMS_ITS | Clinical Summary ---
Author Organization [employer] Address [address] [place] [address] 7 [place] [address] Care Team Providers Care Oil Refinery Process Technician Name Role Phone Ruby Menendez SHANIQUE Primary Care Provider [phone] Allergies Active Allergy Reactions Criticality Noted Date Comments Morphine Anxiety Low 11/13/2022 Medications multivitamin with minerals (Centrum) 9-200 mg-mcg tablet split tablet take i vitamin daily 0 Active acetaminophen (Tylenol 8 Hour) 650 MG ER tablet Take 2 tablets by mouth every 8 (eight) hours. 2 Active lidocaine (Lidoderm) 5 % patch Place 1 patch on the skin at bed time. 1 Active zoster vaccine-recombina nt adjuvanted (Shingrix) 50 MCG/0.5ML vaccine Inject 0.5 mL into the shoulder, thigh, or buttocks. 2 Active Polysaccharide Iron Complex 100 MG/5ML liquid Active amoxicillin-clavu lanate (Augmentin) 875-125 MG tablet TOME ANU TABLETA CADA 12 HORAS POR 7 D 2 Active ascorbic acid (Vitamin C) 250 MG chewable tablet daily. Active Levonorgestrel 20 MCG/DAY intrauterine device TO BE INSERTED ONE TIME BY PRESCRIBER. ROUTE INTRAUTERINE. 2 Active tranexamic acid (Lysteda) 650 MG tablet tabletIndications :Menorrhagia with regular cycle Take per THIRD MILLER instructions, at least 2 tabs twice daily for 3d of menses 60 tablet 3 Active Diclofenac Sodium 1 % gelIndications:Ch ronic pain of right knee APPLY UP TO CUATRO VECES AL JW TO AFFECTED JOINT(S) FOR PAIN/SWELLING 100 g 2 4 Active DULoxetine (Cymbalta) [address] capsuleIndication s:Other chronic pain TAKE 1 CAPSULE BY MOUTH EVERY MORNING 30 capsule 5 4 Active gabapentin (Neurontin) 300 MG capsuleIndication s:Polyarthralgia TAKE 1 CAPSULES BY MOUTH AT BEDTIME 30 capsule 5 Active lisinopril 5 MG tabletIndications :Benign essential hypertension TAKE 1 TABLET BY MOUTH EVERY MORNING 90 tablet 1 5 Active Active Problems Problem Noted Date Diagnosed Date [...] Type Department Care Team Description 04/27/2025 Refill [facility] [address] [place] [address] Ruby Menendez ANP Benign essential hypertension from [...] Description 07/23/2025 9:00 AM EDT Office Visit [facility] OPTOMETRY [address] [place] [address] Bakari, Karli, OD [address] [place] [address] Health Maintenance Due Date Last Done Comments CT Colonography 1971 FIT DNA/Cologuard 1971 FIT 1971 FOBT 1971 Sigmoidoscopy 1971 Disability Screening 1971 Alcohol/Substance Use Screening 1983 Pneumococcal Vaccine: 50+ Years (1 of 1 - PCV) 2021 Hepatitis B Vaccines (3 of 3 - 19+ 3-dose series) 05/12/2024 03/17/2024, 06/18/2020 Dental Oral Exam 09/13/2024 03/13/2024 SDOH Screening 11/23/2024 11/23/2023 Depression Screening 12/13/2024 12/14/2023, 12/14/19 Dental Prophylaxis 04/25/2025 10/25/2024, 03/13/2024 Mammogram 05/17/2025 05/17/2024, 05/04, 02/04/2023, Additional history exists COVID-19 Vaccine ( season) 2025 10/29/2022, 04/29/2022, 11/01/2021, Additional history exists Influenza Vaccine (#1) 2025 [...] ANTIBODY RFLX Routine 11/28/2019 8:30 AM EST [facility] HISTORICAL HIV AB/AG Routine 11/28/2019 8:30 AM EST from Last 3 Months or Most Recently Relevant to Health Maintenance Results * BI Mammogram Screening Tomosynthesis Bilateral (05/17/2024 11:40 AM EDT) Anatomical Region Laterality Modality Breast Bilateral Mammography 05/17/2024 11:4 0 AM EDT Narrative 06/08/2024 4:19 PM EDT [facility] [address] [place] [address] Mammography Report Signed Patient: Khadar Sullivan MR#: [id number] : 1970 Acct:[id number] Age/Sex: 53 / F ADM Date: 05/17/24 Loc: MARIA E Attending Dr: Ruby Menendez ASSISTANT MECHANIC Ordering Physician: MENENDEZ,RUBY ASSISTANT MECHANIC Results: 2Benign Fin dings Date of Service: 05/17/24 Follow Up: 1 Year From Orig ina Mammogram Procedure(s): MM tomosynthesis screening BI Accession Number(s): [id number] cc: RUBY MENENDEZ NP EXAMINATION: MM SCREENING [...] 06/08/24 1617 DD/ 1140 TD/TT: 05/17/24 1152 Public Health Technician: Procedure Note Donotuseinterpreter, Image - 06/08/2024 Km [facility] [address] [place] [address] Mammography Report Signed Patient: Khadar SullivanMR#: [id number] : 1970Acct:[id number] Age/Sex: 53 / FADM Date: 05/17/24 Loc: MARIA E Attending Dr: Ruby Menendez ASSISTANT MECHANIC Ordering Physician: RUBY MENENDEZ NPResults: 2Benign Dwayne arguello Date of Service: 05/17/24Follow Up: 1 Year From Orig ina Mammogram Procedure(s): MM tomosynthesis screening BI Accession Number(s): [id number] cc: RUBY MENENDEZ NP EXAMINATION: MM SCREENING [...] 06/08/24 1617 DD/ 1140 TD/TT: 05/17/24 1152 Public Health Technician: Ruby Menendez ANP IMG BI PROCEDURES Final Result * (ABNORMAL) Lipid Panel, Standard (11/02/2022 8:52 AM EST) Cholesterol, Total 211(H) <200 mg/dL [facility] HDL Cholesterol 60 > OR = 50 mg/dL [facility] [place] [employer] Triglycerides 91 <150 mg/dL [facility] LDL Cholesterol 132(H) mg/dL (calc) [facility] Comment: Reference range: <100 Desirable range <100 mg/dL for primary prevention; <70 mg/dL for patients with CHD or diabetic patients with > or = 2 CHD risk factors. LDL-C is now calculated using the Gurwinder calculation, which is a validated novel method providing better accuracy than the Friedewald equation in the estimation of LDL-C. Bhaskar SS et al. FLETCHER. 2013;310(84): 4502-2448 (http://education.Reissued/faq/GDU712) Chol/HDLC Ratio 3.5 <5.0 (calc) [facility] Non-HDL Cholesterol 151(H) <130 mg/dL (calc) [facility] Comment: For patients with diabetes plus 1 major ASCVD risk factor, treating to a non-HDL-C goal of <100 mg/dL (LDL-C of <70 mg/dL) is considered a therapeutic option. Blood Venous blood specimen / Unknown 11/02/2022 8:52 AM EST 11/02/2022 8:53 AM EST Narrative [facility] - 11/02/2022 7:55 PM EST FASTING:YES FASTING: YES [facility] LAB BLOOD ORDERABLES Final Resul t [facility] [address], [place] [address] [facility] [address] [facility], (Nl2) [place] [address] * HPV E6/E7 RFLX JULIAN 16 18/45 (06/17/2021 11:43 AM EDT) HPV 16 RNA [facility] HPV 18/45 RNA [facility] HPV E6 E7 ADD [facility] HPV mRNA E6/E7 rflx Not Detected Not Detected [facility] Comment: Methodology: Bead Machine Operator-Mediated Amplification This assay detects E6/E7 viral messenger RNA (mRNA) from 14 high-risk HPV types (16,18,31,33,35,39,45,51,52,56,58,59,66,68). The analytical performance characteristics of this assay have been determined by [facility]. The modifications have not been cleared or approved by the FDA. This assay has been validated pursuant to the CLIA regulations and is used for clinical purposes. For additional information, please refer to http://education.QingCloud/faq/IAS738g0 (This link if provided for information/ educational purposes only.) THIS TEST WAS PERFORMED AT: [employer] [address] [place] [address] [address] FLOOR,[place] [address] TARIQ ALVAREZ MD 06/17/2021 11:4 3 AM EDT Duy Celeste MD HISTORICAL/NON ORDERABLE LABS Fi nal Result Performing Organization Address [facility] Phone Number [facility] [address] [place] [address] * Hm Pap Smear (06/17/2021) Historical Provider HEALTH MAINTENANCE Final Result * HEPATITIS C ANTIBODY RFLX (11/28/2019 8:30 AM EST) HEPATITIS C ANTIBODY NONREACTIVE NONREACTIVE [facility] Comment: Antibodies to HCV not detected; does not exclude early acute HCV infection. 11/28/2019 8:30 AM EST Ruby BAY HISTORICAL/NON ORDERABLE LABS Fi nal Result Performing Organization Address [facility] Phone Number [facility] [address] * HIV AB/AG (11/28/2019 8:30 AM [...] of detection of this assay. [employer] [facility] Technician HIV Ag/Ab Combo assay result and supplemental assay results should be interpreted in conjunction with the patient's clinical presentation, history and other laboratory results. If the results are inconsistent with clinical evidence, additional testing is suggested to confirm the result. 11/28/2019 8:30 AM EST us Ruby Menendez ANP HISTORICAL/NON ORDERABLE LABS Fi nal Result [facility] [address] from Last 3 Months or Most Recently Relevant to Health Maintenance Insurance [facility] C3 HSN FULL DENTAL-[facility] MEDICAID STAND ADULT Care Teams Oil Refinery Process Technician Relationship Specialty Start Date End Date Ruby Menendez ANP [address] [place] [address] PCP - General Family Medicine 12/01/19
--- OUTSIDE RECORDS SUMMARY | 2025-06-18 20:58 | XMS_ITS | Encounter Summary ---
Author Organization [facility] Address [address] [place] [address] Care Team Providers Care Spring Upholsterer Name Role Phone Imelda Rae SHANIQUE Primary Care Provider [phone] Encounter Details Date Type Department Care Team (Late Contact Info) Description 06/25/2023 Orders Only [facility] [address] [place] [address] Provider, MD Joanie Social History Tobacco Use [...] Department Care Team (Late Contact Info) Description 07/23/2025 9:00 AM EDT Office Visit [facility] [address] [place] [address] Karli Villegas, OD [address] [place] [address] documented as of this encounter Procedures Procedure [...] documented as of this encounter Care Teams Spring Upholsterer Relationship Specialty Start Date End Date Imelda Rae ANP [address] [place] [address] PCP - General Family Medicine 12/01/19 documented as of this encounter
--- OUTSIDE RECORDS SUMMARY | 2025-06-18 20:58 | XMS_ITS | Encounter Summary ---
Author Organization [employer] Address [address] [place] [address] Care Team Providers Care Director Employee Communications Name Role Phone Imelda Rae Primary Care Provider [phone] Encounter Details Date Type Department Care Team (Latest Contact Info) Description 07/26/[address] [facility] CONVERSIONS Dental, Provider, DDS Social History [...] Description 07/23/2025 9:00 AM EDT Office Visit [facility] OPTOMETRY [address] [place] [address] BakariKarli, OD [address] [place] [address] documented as of this encounter Visit Diagnoses Not on filedocumented in this encounter Care Teams Director Employee Communications Relationship Specialty Start Date End Date Imelda Rae ANP [address] [place] [address] PCP - General Family Medicine 12/01/19 documented as of this encounter
--- OUTSIDE RECORDS SUMMARY | 2025-06-18 20:58 | XMS_ITS | Encounter Summary ---
Author Organization [employer] Address [address] [place] [address] Care Team Providers Care Research Laboratory Technician Name Role Phone Imelda Rae Primary Care Provider [phone] Encounter Details Date Type Department Care Team (Latest Contact Info) Description 05/21/2021 Abstract [facility] CONVERSIONS Dental, Provider, DDS Social History Tobacco [...] Office Visit [facility] OPTOMETRY [address] [place] [address] BakariKarli, OD [address] [place] [address] documented as of this encounter Visit Diagnoses Not on filedocumented in this encounter Care Teams Research Laboratory Technician Relationship Specialty Start Date End Date Imelda Rae ANP [address] [place] [address] PCP - General Family Medicine 12/01/19 documented as of this encounter
--- OUTSIDE RECORDS SUMMARY | 2025-06-18 20:58 | XMS_ITS | Patient Health Record ---
Author Organization [facility] Address [address] [place] [address] Care Team Providers Care Shop Supervisor Name Role Phone RUBY MENENDEZ N.P. Primary Care Provider Dylon Berry Unavailable [phone] KATHRYN HOFF Unavailable Unavailable Reason For Referral Referring Provider First Name RUBY Referring Provider Last Name SHON Angelo Referred Organization [facility] Referred Provider Dylon Arreola Referred Address [address] [facility],[address],[place], [place],[address], Referred Provider Specialty Gastroentero logy General Notes Ambar Mayfield 2024 10:05:23 AM >requested a [facility] referral from [facility] for visit with dr pfeiffer son 29 Referral Priority Routine Medications Medication SIG (Take, Route, Fr equency, [...] Risk Notes Problem Diverticular disease of colon (975014634) Diverticulosis of large intestine without perforation or abscess without bleeding (K57.30) Active confirmed Problem 53441039 Iron deficiency anemia, unspecified iron deficiency anemia type (D50.9) Active confirmed Problem 457131108 Family history o f colon cancer in mother (Z80.0) Active confirmed Plan Of Treatment Pending Test Test Name Order Date Pathology 04/28/2021 Future Test Test Name Order Date UPPER GI ENDOSCOPY 01/31/2021 COLONOSCOPY 01/31/2021 Next Appt Details Provider Name:Dylon Lama Arreola , 10/18/2025 09:20:00 AM, [address] [place] [address], [address], [place], [address], Insurance Providers Payer Name Payer Address Payer Phone Subscriber Number Group Number Insured Name Patient Relationship to Insured Coverage Start Date Coverage End Date [facility] [employer] [facility] [address] [address] [place], [place] [id number] NESS SNELL Self - patient is the insured Medical (General) History Medical History History ICD Code Hypertension Anemia--sees Dr. Lynne--has had 2 iron infusions 12/2020--can't tolerate po Iron Heavy menses by her report Kidney stones Denies IN,DM,CVA,Lung disease,renal dise ase Surgical History Surgery Date(Month/Year) [place]IATRIC SURGERY [place] 2018 1991,1992,1995 Surgery on broken left arm
== END 2025-06-18 15:37 | disposition home or self-care (01) ==
LOC: HO.MAMMO 15:36
PROVIDERS: PCP Nurse Practitioner Primary Care; Visit Provider Nurse Practitioner Primary Care
DX: Z12.31 Encounter for screening mammogram for malignant neoplasm of breast (principal)
CPT/HCPCS: 77063; 77067

== ENCOUNTER → 2025-06-18 16:15 | Outpatient (BNV) | payer OTHER, SELFPAY | PROVIDERS: PCP Nurse Practitioner Primary Care; Visit Provider Radiology Body Imaging | DX: Z12.31 Encounter for screening mammogram for malignant neoplasm of breast (principal) | CPT/HCPCS: 77063; 77067 ==

== ENCOUNTER 2025-06-20 18:25 | Outpatient (REF) | payer OTHER, SELFPAY ==
--- OUTSIDE RECORDS SUMMARY | 2025-03-01 05:20 | XMS_ITS ---
Author Organization [facility] Address [address] [facility] [address] [place] [address] Care Team Providers Care Grinder Operator Name Role Phone RUBY MENENDEZ N.P. Primary Care Provider UnavailDylon Nash Unavailable [phone] KATHRYN HOFF Unavailable Unavailable REASON FOR VISIT Patient presents today for a colon screening Encounters Encounter Location Date Provider Diagnosis [facility] [address] [facility] [address] [place] [address] 03/01/2025 Dylon Arreola Plan Of Treatment Next Appt Details Provider Name:Dylon Arreola , 10/18/2025 09:20:00 AM, [address] [place] [address], [address], [place], [address], Progress Notes * NESS SNELL TDOB: 1970 (54 yo F)Acc No.[id number]:03/01/2025 Progress Notes Patient: Radha CARTER SILOBO ZANDERTAI Esteban Provider: Laney Arreola MD :1970 A ge:54 Y S ex:Female Date:03/01/2025 Address:[address] [place] [address] [address] [facility] Pcp:RUBY MENENDEZ N.P. Subjective: * Chief Complaints: * 1 . Patient presents today for a colon screening. * Medical History: Objective: * Vitals: Assessment: Plan: * Treatment: * * The named appointment provid er may or may not be the originator of this progress note, and it is not deemed complete until electronically signed by the appointment provider. Sign off status: Pending * Provider: Laney Arreola MD Date: 0 03/01/2025 Generated for Calvin reilly/Roshan/Radha on: 0 06/20/2025 07:30 PM EDT
--- OUTSIDE RECORDS SUMMARY | 2025-06-13 09:20 | XMS_ITS ---
Author Organization [facility] Address [address] [place] [address] Care Team Providers Care Director Software Quality Assurance Name Role Phone RUBY MENENDEZ N.P. Primary Care Provider UnavailDylon Nash Unavailable [phone] KATHRYN HOFF Unavailable Unavailable REASON FOR VISIT Patient presents today for a colon screening Encounters Encounter Location Date Provider Diagnosis [facility] [address] [place] [phone] 06/13/2025 Dylon Arreola Plan Of Treatment Next Appt Details Provider Name:Dylon Arreola , 10/18/2025 09:20:00 AM, [address] [place] [address], [address], [place], [address], Progress Notes * NESS SNELL TDOB: 1970 (54 yo F)Acc No.[id number]:06/13/2025 Progress Notes Patient: Radha CARTER SILOBO ZANDERTAI Esteban Provider: Laney Arreola MD :1970 A ge:54 Y S ex:Female Date:06/13/2025 Address:[address] [place] [address] [address] [facility] Pcp:RUBY MENENDEZ N.P. Subjective: * Chief Complaints: [...] 0 06/13/2025 Generated for Calvin reilly/Roshan/Radha on: 06/20/2025 07:31 PM EDT
--- NOTE | ~2025-06-20 | MR_ITS ---
CLINICAL HISTORY: S83.241A - Other tear of medial meniscus, current injury, right knee, in... MR right knee without gadolinium Comparison: CR/DE/SR - XR KNEE 3 VIEWS RIGHT - 03/05/23 11:38 EDT Findings: Extensive complex degenerative tearing of the lateral meniscus. The medial meniscus is intact. Cruciate ligaments are intact. Collateral ligaments are intact. Mild lateral subluxation of the patella. The tibial tuberosity to trochlear groove distance measures 15 mm. No focal patellofemoral articular cartilage defect. Nonuniform up to full-thickness lateral compartment articular cartilage loss, which is most conspicuous within the central weight-bearing portion. In combination with medium-sized marginal osteophytes this is compatible with severe osteoarthritis. Small medial compartment marginal osteophytes without focal articular cartilage defect, compatible with mild osteoarthritis. Small knee joint effusion. Small Pan's cyst. Patellar retinacula and iliotibial band are intact. Mild edema signal within the superolateral aspect of Hoffa's fat pad. Quadriceps, patellar, popliteus, and flexor tendons are intact. IMPRESSION: 1. Severe lateral compartment osteoarthritis with extensive complex degenerative tearing and partial extrusion of the lateral meniscus. 2. Mild medial compartment osteoarthritis. 3. Mild lateral subluxation of the patella. Mild edema within the superolateral aspect of Hoffa's fat pad can be seen with patellar tendon-lateral femoral condyle friction syndrome. 4. Small knee joint effusion and small Pan's cyst. This document has been electronically signed by: Tadeo Redd DO on 06/22/2025 09:19:06
--- OUTSIDE RECORDS SUMMARY | 2025-06-20 19:32 | XMS_ITS | Encounter Summary ---
Author Organization [employer] Address [address] [place] [address] Care Team Providers Care Chilling Hood Operator Name Role Phone Imelda Rae Primary Care Provider [phone] Encounter Details Date Type Department Care Team (Latest Contact Info) Description 05/21/2021 Abstract [facility] CONVERSIONS Dental, Provider, DDS Social History [...] Description 07/23/2025 9:00 AM EDT Office Visit [facility] OPTOMETRY [address] [place] [address] BakariKarli, OD [address] [place] [address] documented as of this encounter Visit Diagnoses Not on filedocumented in this encounter Care Teams Chilling Hood Operator Relationship Specialty Start Date End Date Imelda Rae ANP [address] [place] [address] PCP - General Family Medicine 12/01/19 documented as of this encounter
--- OUTSIDE RECORDS SUMMARY | 2025-06-20 19:32 | XMS_ITS | Clinical Summary ---
Author Organization [employer] Address [address] [place] [address] 7 [place] [address] Care Team Providers Care Facility Manager Histology Name Role Phone Ruby Menendez SHANIQUE Primary Care Provider [phone] Allergies Active Allergy Reactions Criticality Noted Date [...] tabletIndications :Menorrhagia with regular cycle Take per BRIM SETTER instructions, at least 2 tabs twice daily [...] Encounters Date Type Department Care Team Description 06/18/2025 Orders Only [facility] MEDICINE [address] [place] [address] Ruby Menendez ANP 04/27/2025 Refill [facility] MEDICINE [address] [place], [place] [id number] Ruby Menendez ANP Benign essential hypertension from [...] Description 07/23/2025 9:00 AM EDT Office Visit [facility] OPTOMETRY [address] [place] [address] Bakari, Karli, OD [address] [place] [address] Health Maintenance Due Date Last Done Comments CT Colonography 1971 FIT DNA/Cologuard 1971 FIT 1971 FOBT 1971 Sigmoidoscopy 1971 Disability Screening 1971 Alcohol/Substance Use Screening 1983 Hepatitis B Vaccines (3 of 3 - 19+ 3-dose series) 05/12/2024 03/17/2024, 06/18/2020 Dental Oral Exam 09/13/2024 03/13/2024 SDOH Screening 11/23/2024 11/23/2023 Depression Screening 12/13/2024 12/14/2023, 12/14/19 24 Dental Prophylaxis 04/25/2025 10/25/2024, 03/13/2024 Dental X-Ray: Bitewings 06/30/2025 06/29/20 24, 03/13/2024, 07/14/2022 Tobacco Screening 12/12/2025 12/12/2024 Colonoscopy 04/28/2026 Colorectal Cancer Screening 04/28/2026 Cervical Cancer Screening 06/17/2026 HPV/Cotest 06/17/2026 06/17/2021, 06/04, 12/01/2019 Pap Smear 06/17/2026 06/17/2021 Mammogram 06/18/2026 06/18/2025, 05/04, 05/17/2024, Additional history exists Dental X-Ray: Full Mouth 03/14/2027 03/13/2024, 07/05 Lipid Panel 11/02/2027 11/02/2022, 05/20/2021 DTaP/Tdap/Td Vaccines (2 - Td or Tdap) 11/24/2029 11/24/2019 RSV Patients and Patients Aged 60 years or older (1 - 1-dose 75+ series) 2046 HIV Screening Completed 11/28/2019 Hepatitis C Screening Completed 11/28/2019 Zoster Vaccines Completed 03/18/2022, 01/07/2022 COVID-19 Vaccine Completed 06/18/2025, , 04/29/2022, Additional history exists Influenza Vaccine Completed 06/18/2025, , 07/29/2023, Additional history exists Pneumococcal Vaccine: 50+ Years Completed 06/18/2025 HIB Vaccines Aged Out No longer eligi [...] Procedure Name Priority Date/Time Associated Diagnosis Comments BI MAMMOGRAM SCREENING TOMOSYNTHESIS BILATERAL Routine 06/18/2025 3:40 PM EDT PROPHYLAXIS - ADULT Routine 10/25/2024 9 :00 AM EST BITEWING - SINGLE RADIOGRAPHIC IMAGE Routine 06/29/2024 2:00 PM EDT Full coverage crown needed for root canal-treated tooth Excessive attrition of teeth, limited to enamel INTRAORAL - COMPLETE SERIES OF RADIOGRAPHIC IMAGES [...] Results * BI Mammogram Screening Tomosynthesis Bilateral (06/18/2025 3:40 PM EDT) Anatomical Region Laterality Modality Breast Bilateral Mammography 06/18/2025 3:40 PM EDT Narrative 06/19/2025 6:46 PM EDT Km [facility]'s [address] [place] [place] [address] Mammography Report Signed Patient: Khadar Sullivan MR#: [id number] : 1970 Acct:[id number] Age/Sex: 54 / F ADM Date: 06/18/25 Loc: MARIA E Attending Dr: Ruby Menendez MACHINE CLERICAL VERIFIER Ordering Physician: RUBY MENENDEZ NP Results: 2Benign Dwayne arguello Date of Service: 06/18/25 Follow Up: 1 Year From Orig inal Mammogram Procedure(s): MM tomosynthesis screening BI Accession Number(s): [id number] cc: RUBY MENENDEZ NP Reason For Exam: SCREENING EXAMINATION: MM SCREENING DIGITAL BREAST TOMOSYNTHESIS, BILATERAL CLINICAL INFORMATION: Screening. Asymptomatic. COMPARISON: Comparison made to multiple prior, most recent May 17, 2024, and most remote December 06, 2019. TECHNIQUE: Digital breast tomosynthesis is performed in mediolateral oblique and craniocaudal views along with computer-aided detection (CAD). Synthesized 2D images are generated from the tomosynthesis. FINDINGS: BREAST COMPOSITION: There are scattered areas of fibroglandular density (ACR BI-RADS breast composition Category b). RIGHT BREAST: No significant masses, suspicious calcifications or other abnormalities are seen. LEFT BREAST: Known benign mass in the lower inner quadrant anterior depth is unchanged from 2020. No significant masses, suspicious calcifications or other abnormalities are seen. MM/MM tomosynthesis screening BI IMPRESSION: BILATERAL BREASTS: Benign, no mammographic evidence of malignancy. Normal interval follow-up is recommended in 12 months. ASSESSMENT: BI-RADS 2 - Benign Findings RECOMMENDATION: Routine annual mammography screening. FOLLOW-UP: 1 year F/U This examination should not preclude the clinical evaluation of a suspicious palpable abnormality. This patient's information was entered into a reminder system with a target due date for their next mammogram. Electronically signed by: Aby Dahl MD 06/19/2025 06:43 PM EDT Dictated By: Aby Dahl MD Signed By: <Electronically signed by Aby Dahl MD in OV> 06/19/25 1843 DD/ 1540 TD/TT: 06/18/25 1556 Pumper Gauger: Procedure Note Donotuseinterpreter, Image - 06/19/2025 Km [facility]'s [address] [place] [address] Mammography Report Signed Patient: Khadar SullivanMR#: [id number] : 1970Acct:[id number] Age/Sex: 54 / FADM Date: 06/18/25 Loc: HO.MAMMO Attending Dr: Ruby Menendez NP Ordering Physician: RUBY MENENDEZ NPResults: 2Benign Dwayne arguello Date of Service: 06/18/25Follow Up: 1 Year From Orig inal Mammogram Procedure(s): MM tomosynthesis screening BI Accession Number(s): [id number] cc: RUBY MENENDEZ NP Reason For Exam: SCREENING EXAMINATION: MM SCREENING DIGITAL BREAST TOMOSYNTHESIS, BILATERAL CLINICAL INFORMATION: Screening. Asymptomatic. COMPARISON: Comparison made to multiple prior, most recent May 17, 2024, and most remote December 06, 2019. TECHNIQUE: Digital breast tomosynthesis is performed in mediolateral oblique and craniocaudal views along with computer-aided detection (CAD). Synthesized 2D images are generated from the tomosynthesis. FINDINGS: BREAST COMPOSITION: There are scattered areas of fibroglandular density (ACR BI-RADS breast composition Category b). RIGHT BREAST: No significant masses, suspicious calcifications or other abnormalities are seen. LEFT BREAST: Known benign mass in the lower inner quadrant anterior depth is unchanged from 2020. No significant masses, suspicious calcifications or other abnormalities are seen. MM/MM tomosynthesis screening BI IMPRESSION: BILATERAL BREASTS: Benign, no mammographic evidence of malignancy. Normal interval follow-up is recommended in 12 months. ASSESSMENT: BI-RADS 2 - Benign Findings RECOMMENDATION: Routine annual mammography screening. FOLLOW-UP: 1 year F/U This examination should not preclude the clinical evaluation of a suspicious palpable abnormality. This patient's information was entered into a reminder system with a target due date for their next mammogram. Electronically signed by: Aby Dahl MD 06/19/2025 06:43 PM EDT Dictated By: Aby Dahl MD Signed By: <Electronically signed by Aby Dahl MD in OV> 06/19/25 6106 DD/ 1540 TD/TT: 06/18/25 1556 Pumper Gauger: Ruby Menendez ANP [facility] [place] BI PROCEDURES Edited Result - Final * (ABNORMAL) Lipid Panel, Standard (11/02/2022 8:52 AM EST) Cholesterol, Total 211(H) <200 mg/dL [facility] HDL Cholesterol 60 > OR = 50 mg/dL [facility] Triglycerides 91 <150 mg/dL [facility] LDL Cholesterol 132(H) mg/dL (calc) [facility] Comment: Reference range: <100 Desirable range <100 mg/dL for primary prevention; <70 mg/dL for patients with CHD or diabetic patients with > or = 2 CHD risk factors. LDL-C is now calculated using the Gurwinder calculation, which is a validated novel method providing better accuracy than the Friedewald equation in the estimation of LDL-C. Bhaskar SS et al. FLETCHER. 2013;310(19): 3433-7302 (http://education.JobOn/faq/ZVS049) Chol/HDLC Ratio 3.5 <5.0 (calc) [facility] Non-HDL Cholesterol 151(H) <130 mg/dL (calc) [facility] Comment: For patients with diabetes plus 1 major ASCVD risk factor, treating to a non-HDL-C goal of <100 mg/dL (LDL-C of <70 mg/dL) is considered a therapeutic option. Blood Venous blood specimen / Unknown 11/02/2022 8:52 AM EST 11/02/2022 8:53 AM EST Narrative [facility] - 11/02/2022 7:55 PM EST FASTING:YES FASTING: YES [facility]ly [facility] LAB BLOOD ORDERABLES Final Resul t [facility] [address] [facility], [facility], [place] [address] [facility] [address] [facility], (N[address]2) [place] [address] * HPV E6/E7 RFLX JULIAN 16 18/45 (06/17/2021 11:43 AM EDT) Pathologist [facility] HPV 16 RNA [facility] HPV 18/45 RNA [facility] HPV E6 E7 ADD [facility] HPV mRNA E6/E7 rflx Not Detected Not Detected [facility] Comment: Methodology: Straightener [employer] Parts-Mediated Amplification This assay detects E6/E7 viral messenger RNA (mRNA) from 14 high-risk HPV types (16,18,31,33,35,39,45,51,52,56,58,59,66,68). The analytical performance characteristics of this assay have been determined by [facility]. The modifications have not been cleared or approved by the FDA. This assay has been validated pursuant to the CLIA regulations and is used for clinical purposes. For additional information, please refer to http://education.LabDoor/faq/DDM738d8 (This link if provided for information/ educational purposes only.) THIS TEST WAS PERFORMED AT: [facility] [address] [place] [address],[place] [address] TARIQ ALVAREZ MD 06/17/2021 11:4 3 AM EDT Duy Celeste MD HISTORICAL/NON ORDERABLE LABS Fi nal Result Performing Organization Address [facility] Co de Phone Number [facility] [address] * Hm Pap Smear (06/17/2021) Joanie Mccormack MD HEALTH MAINTENANCE Final Result * HEPATITIS C ANTIBODY RFLX (11/28/2019 8:30 AM EST) Pathologist [facility] HEPATITIS C ANTIBODY NONREACTIVE NONREACTIVE [facility] Comment: Antibodies to HCV not detected; does not exclude early acute HCV infection. 11/28/2019 8:30 AM EST Ruby BAY HISTORICAL/NON ORDERABLE LABS Fi nal Result Performing Organization Address [facility] Co de Phone Number [facility] [address] * HIV AB/AG (11/28/2019 8:30 AM [...] of detection of this assay. [employer] [address] Construction Worker HIV Ag/Ab Combo assay result and supplemental assay results should be interpreted in conjunction with the patient's clinical presentation, history and other laboratory results. If the results are inconsistent with clinical evidence, additional testing is suggested to confirm the result. 11/28/2019 8:30 AM EST us Ruby Butch [place] HISTORICAL/NON ORDERABLE LABS Fi nal Result Performing Organization Address City/State/[facility] Co de Phone Number [facility] [address] from Last 3 Months or Most Recently Relevant to Health Maintenance Insurance [facility] C3 [facility] [place] ST[place] ADULT Care Teams Facility Manager Histology Relationship Specialty Start Date End Date Ruby Menendez ANP [address] [place] [address] PCP - General Family Medicine 12/01/19
--- OUTSIDE RECORDS SUMMARY | 2025-06-20 19:32 | XMS_ITS | Encounter Summary ---
Author Organization [employer] [facility] Address [address] [place] [address] [address], [place] [address] Care Team Providers Care Gm Mobile Name Role Phone Imelda Rae Primary Care Provider [phone] Reason for Visit * Reason Comments Med Change Request Encounter Details Date Type Department Care Team (Late st Contact Info) Description 05/29/2023 Refill [facility] MEDICINE [address] [place] [address] Imelda Rae ANP [address] [place] [address] Menorrhagia with regular cycle Social History Tobacco [...] Description 07/23/2025 9:00 AM EDT Office Visit [facility] OPTOMETRY [address] [place] [address] Karli Villegas, OD [address] [place] [address] documented as of this encounter Visit Diagnoses Diagnosis Menorrhagia with regular cycle documented in this encounter Additional Health Concerns Assessment Noted Time PHQ-9 Depression Total Score: 0 10/29/19 23 11:10 AM EST documented as of this encounter Care Teams Gm Mobile Relationship Specialty Start Date End Date Imelda Rae ANP [address] [place] [address] PCP - General Family Medicine 12/01/19 documented as of this encounter
--- OUTSIDE RECORDS SUMMARY | 2025-06-20 19:32 | XMS_ITS | Encounter Summary ---
Author Organization [facility] Address [address] [place] [address] Care Team Providers Care Dog Barber Name Role Phone Imelda Rae SHANIQUE Primary Care Provider [phone] Encounter Details Date Type Department Care Team (Late Contact Info) Description 06/25/2023 Orders Only [facility] MEDICINE [address] [place] [address] Provider, MD Joanie Social History Tobacco Use [...] Description 07/23/2025 9:00 AM EDT Office Visit [facility] OPTOMETRY [address] [place] [address] Karli Villegas, OD [address] [place] [address] documented as of this encounter Procedures Procedure [...] documented as of this encounter Care Teams Dog Barber Relationship Specialty Start Date End Date Imelda Rae ANP [address] [place] [address] PCP - General Family Medicine 12/01/19 documented as of this encounter
--- OUTSIDE RECORDS SUMMARY | 2025-06-20 19:32 | XMS_ITS | Encounter Summary ---
Author Organization [employer] Address [address] [facility] 7 [place] [address] Care Team Providers Care Bb Shot Packer Name Role Phone Ruby Menendez Primary Care Provider [phone] Encounter Details Date Type Department Care Team ([facility] st Contact Info) Description 06/18/2025 Orders Only [facility] MEDICINE [address] [place] [address] Ruby Menendez ANP [address] [place] [address] Social History Tobacco Use Types Packs/Day Years [...] Description 07/23/2025 9:00 AM EDT Office Visit [facility] OPTOMETRY [address] [place] [address] Bakari, Karli, OD [address] [place] [address] documented as of this encounter Procedures Procedure Name Priority Date/Time Associated Diagnosis Comments BI MAMMOGRAM SCREENING TOMOSYNTHESIS BILATERAL Routine 06/18/2025 3:40 PM EDT documented in this encounter Results * BI Mammogram Screening Tomosynthesis Bilateral (06/18/2025 3:40 PM EDT) Anatomical Region Laterality Modality Breast Bilateral Mammography 06/18/2025 3:40 PM EDT Narrative 06/19/2025 6:46 PM EDT [facility]'s [address] [place] [address] Mammography Report Signed Patient: Khadar Sullivan MR#: [id number] : 1970 Acct:[id number] Age/Sex: 54 / F ADM Date: 06/18/25 Loc: MARIA E Attending Dr: Ruby Menendez NP Ordering Physician: RUBY MENENDEZ NP Results: 2Benign Dwayne arguello Date of Service: 06/18/25 Follow Up: 1 Year From Orig [facility] Mammogram Procedure(s): MM tomosynthesis screening BI Accession Number(s): [id number] cc: RUBY MENENDEZ NP Reason For Exam: [...] 06/19/25 1843 DD/ 1540 TD/TT: 06/18/25 1556 Igniter Capper: Procedure Note Donotuseinterpreter, Image - 06/19/2025 [facility] [address] [place] [address] Mammography Report Signed Patient: Khadar SullivanMR#: M [id number] : 1970Acct:[id number] Age/Sex: 54 / FADM Date: 06/18/25 Loc: HO.MAMMO Attending Dr: Ruby Menendez TRANSFORMATION SPECIALIST Ordering Physician: RUBY MENENDEZ NPResults: 2Benign Dwayne dalylizbeth Date of Service: 06/18/25Follow Up: 1 Year From Orig inal Mammogram Procedure(s): MM tomosynthesis screening BI Accession Number(s): [id number] cc: RUBY MENENDEZ NP Reason For Exam: [...] 06/19/25 1843 DD/ 1540 TD/TT: 06/18/25 1556 Igniter Capper: Ruby Menendez ANP IMG BI PROCEDURES Edited Result - Final documented in this encounter Visit Diagnoses Not on filedocumented in this encounter Additional Health Concerns Assessment Noted Time PHQ-9 Depression Total Score: 0 12/14/19 24 10:24 AM EDT documented as of this encounter Care Teams Bb Shot Packer Relationship Specialty Start Date End Date Ruby Menendez ANP [address] [place] [address] PCP - General Family Medicine 12/01/19 documented as of this encounter
--- OUTSIDE RECORDS SUMMARY | 2025-06-20 19:32 | XMS_ITS | Encounter Summary ---
Author Organization [employer] Address [address] [place] [address] Care Team Providers Care Bowling Alley Mechanic Name Role Phone Imelda Rae Primary Care Provider [phone] Encounter Details Date Type Department Care Team (Latest Contact Info) Description 07/26/2020 Abstract [facility] CONVERSIONS Dental, Provider, DDS Social History Tobacco [...] Description 07/23/2025 9:00 AM EDT Office Visit [facility] OPTOMETRY [address] [place] [address] BakariKarli, OD [address] [place] [address] documented as of this encounter Visit Diagnoses Not on filedocumented in this encounter Care Teams Bowling Alley Mechanic Relationship Specialty Start Date End Date Imelda Rae ANP [address] [place] [address] PCP - General Family Medicine 12/01/19 documented as of this encounter
--- OUTSIDE RECORDS SUMMARY | 2025-06-20 19:32 | XMS_ITS | Patient Health Record ---
Author Organization [facility] Address [address] [place] [address] Care Team Providers Care Anesthetic Assistant Name Role Phone RUBY MENENDEZ N.P. Primary Care Provider Dylon Berry Unavailable [phone] KATHRYN HOFF Unavailable Unavailable Reason For Referral Referring Provider First Name RUBY Referring Provider Last Name SHON Angelo Referred Organization [facility] Referred Provider Dylon Arreola Referred Address [address] [facility],[address],[place], [place],[address], Referred Provider Specialty Gastroentero logy General Notes Ambar Mayfield 2024 10:05:23 AM >requested a [facility] referral from [facility] for visit with dr pfeiffer son 30 [...] Risk Notes Problem Diverticular disease of colon (675787127) Diverticulosis of large intestine without perforation or abscess without bleeding (K57.30) Active confirmed Problem 52120789 Iron deficiency anemia, unspecified iron deficiency anemia type (D50.9) Active confirmed Problem 834931969 Family history o f colon cancer in mother (Z80.0) Active confirmed Plan Of Treatment Pending Test Test Name Order Date Pathology 04/28/2021 Future Test Test Name Order Date UPPER GI ENDOSCOPY 01/31/2021 COLONOSCOPY 01/31/2021 Next Appt Details Provider Name:Dylon Lama Arreola , 10/18/2025 09:20:00 AM, [address] [place] [address], [address], [place], [address], Insurance Providers Payer Name Payer Address Payer Phone Subscriber Number Group Number Insured Name Patient Relationship to Insured Coverage Start Date Coverage End Date [facility] [employer] [facility] [address] [address] [place], [place] [id number] NESS SNELL Self - patient is the insured Medical (General) History Medical History History ICD Code Hypertension Anemia--sees Dr. Lynne--has had 2 iron infusions 12/2020--can't tolerate po Iron Heavy menses by her report Kidney stones Denies [place],DM,CVA,Lung disease,renal dise ase Surgical History Surgery Date(Month/Year) BARIATRIC SURGERY IN [place] 2018 1991,1992,1995 Surgery on broken left arm
== END 2025-06-20 18:26 | disposition home or self-care (01) ==
LOC: HO.MRI 18:25
PROVIDERS: PCP Nurse Practitioner Primary Care; Visit Provider Orthopaedic Surgery
DX: S83.241A Other tear of medial meniscus, current injury, right knee, initial encounter (principal)
CPT/HCPCS: 73721

== ENCOUNTER → 2025-06-20 18:58 | Outpatient (BNV) | payer OTHER, SELFPAY | PROVIDERS: PCP Nurse Practitioner Primary Care; Visit Provider Radiology Diagnostic Radiology | DX: S83.271A Complex tear of lateral meniscus, current injury, right knee, initial encounter (principal); M17.11 Unilateral primary osteoarthritis, right knee; M25.461 Effusion, right knee; M71.21 Synovial cyst of popliteal space [Baker], right knee | CPT/HCPCS: 73721 ==

== ENCOUNTER 2025-07-18 10:49 | Outpatient (AMB) | payer OTHER, SELFPAY ==
--- OUTSIDE RECORDS SUMMARY | 2025-03-01 05:20 | XMS_ITS ---
Author Organization [facility] Address [address] [place] [address] Care Team Providers Care Urban Sociologist Name Role Phone RUBY MENENDEZ N.P. Primary Care Provider UnavailDylon Nash Unavailable [phone] KATHRYN HOFF Unavailable Unavailable REASON FOR VISIT Patient presents today for a colon screening Encounters Encounter Location Date Provider Diagnosis [facility] [address] [facility] [address] [place] [phone] 03/01/2025 Dylon Arreola Plan Of Treatment Next Appt Details Provider Name:Dylon Arreola , 10/18/2025 09:20:00 AM, [address] [place] [address], [address], [place], [address], Progress Notes * NESS SNELL TDOB: 1970 (54 yo F)Acc No.[id number]:03/01/2025 Progress Notes Patient: Radha CARTER SILOBO ZANDERTAI Esteban Provider: Laney Arreola MD :1970 A ge:54 Y S ex:Female Date:03/01/2025 Address:[address] [place] [address] k[address] [facility] Pcp:RUBY MENENDEZ N.P. Subjective: * Chief Complaints: [...] 0 03/01/2025 Generated for Calvin reilly/Roshan/Radha on: 01:10 PM EDT
--- OUTSIDE RECORDS SUMMARY | 2025-06-13 09:20 | XMS_ITS ---
Author Organization [facility] Address [address] [place] [address] Care Team Providers Care Marine Firer Name Role Phone RUBY MENENDEZ N.P. Primary Care Provider UnavailDylon Nash Unavailable [phone] KATHRYN HOFF Unavailable Unavailable REASON FOR VISIT Patient presents today for a colon screening Encounters Encounter Location Date Provider Diagnosis [facility] [address] [place] [phone] 06/13/2025 Dylon Arreola Plan Of Treatment Next Appt Details Provider Name:Dylon Arreola , 10/18/2025 09:20:00 AM, [address] [place] [address], [address], [place], [address], Progress Notes * NESS SNELL TDOB: 1970 (54 yo F)Acc No.[id number]:06/13/2025 Progress Notes Patient: Radha CARTER SILOBO ZANDERTAI Esteban Provider: Laney Arreola MD :1970 A ge:54 Y S ex:Female Date:06/13/2025 Address:[address] [place] [address] [facility] [facility] Pcp:RUBY MENENDEZ N.P. Subjective: * Chief Complaints: [...] 0 06/13/2025 Generated for Calvin reilly/Roshan/Radha on: 01:10 PM EDT
--- NOTE | 2025-07-18 10:59 | A.OFFVIS_ITS ---
Vital Signs 07/18/25 11:04 Height 5 ft 2 in Weight 170 lb BMI 31.1 Intake Visit Reasons: Right knee pain and giving way Intake Note: Khadar is a 54 year old female who presents with complaints of progressively worsening right knee pain and giving way. The patient states that her pain has gotten worse over the last few years in spite of continued non operative treatments. She has failed the last 6 weeks of conservative treatment which has included Tylenol, anti-inflammatory medicines, gabapentin, a home exercise program and physical therapy exercises. She states that her right knee will give out several times per day. At this point her right knee pain and mechanical symptoms are interfering with her activities of daily living and her ability to sleep well through the night. Rn Unit Manager Required: Yes Rn Unit Manager Services: Rn Unit Manager Present Rn Unit Manager Name: [id number] Allergies morphine Adverse Reaction (Verified 07/18/25 11:04) Anxiety Medication List - Last Reconciled 07/18/25 by Glenn Bangura MD acetaminophen ER 650 mg PO Q8H PRN duloxetine (Cymbalta) 1 cap PO DAILY gabapentin 300 mg PO BEDTIME lisinopril 5 mg PO DAILY meloxicam 15 mg PO DAILY PRN PFSH Medical History Iron deficiency anemia Kidney stones HTN (hypertension) Anemia Benign essential hypertension Surgical History Status post laparoscopic appendectomy History of laparoscopic appendectomy (~11/20/23) S/P panniculectomy Tubal ligation status History of surgery on arm Delivery by section Hx of bariatric surgery Family History Mother Colon cancer Diabetes Sister Lupus Father Diabetes Hypertension Unknown Breast cancer Social History Household Members: Spouse Housing: Apartment Are you a primary child care centre manager to a significant other at home: No Do you presently have visiting nurse or other home services: No Alcohol intake: former Patient Tobacco Use Status: Never used Tobacco service: No Current occupational status: unemployed Current occupation: rt handed Female Reproductive History Menstrual Age of Menarche: 11 Physical Exam Vital Signs: BMI result Body Mass Index 31.1 Const Other: Well-nourished well-developed very friendly female awake alert and oriented x3 in no acute distress Extrem Other: Right knee examination shows a minimal effusion, mild crepitus with range of motion, tenderness along her lateral joint line, positive Kimi's test, no instability Results Reviewed Results Reviewed: MRI of the patient's right knee shows moderate diffuse degenerative changes as well as a tear of the lateral meniscus, no acute bony abnormalities Assessment & Plan Assessment & Plan (1) Tear of lateral meniscus of right knee: Code(s): S83.281A - Other tear of lateral meniscus, current injury, right knee, initial encounter Category: Medical Plan Ms. Napoleon Avendano presents with progressively worsening right knee pain and mechanical symptoms due to degenerative joint disease as well as a lateral meniscus tear. I had a lengthy discussion with the patient regarding the treatment options. The patient wishes to hold off on total knee replacement surgery if at all possible. I agree with this plan. The risks and benefits of right knee arthroscopic surgery were discussed at length with the patient. The patient wishes to proceed. Surgery will most likely involve right knee arthroscopic partial lateral meniscectomy. She does understand that she may not get 100% relief of her symptoms depending on the severity of her degenerative changes. The patient will follow up as instructed. Feel free to call me at any time should questions regarding her orthopedic management arise. I spent 21 minutes in reviewing the patient's records and imaging studies, seeing the patient and documenting in the medical record. Coding Level of Care Code Est Pt Level 3 (10700) Complex EM visit Add On G2211 Diagnoses Tear of lateral meniscus of right knee S83.281A
[2025-07-18 11:04] VITALS: BMI 31.1
--- OUTSIDE RECORDS SUMMARY | 2025-07-18 13:11 | XMS_ITS | Patient Health Record ---
Author Organization [facility] Address [address] [place] [address] Care Team Providers Care Sales Agent Trading Stamps Name Role Phone RUBY MENENDEZ N.P. Primary Care Provider Dylon Berry Unavailable [phone] KATHRYN HOFF Unavailable Unavailable Reason For Referral Referring Provider First Name RUBY Referring Provider Last Name SHON Angelo Referred Organization [facility] Referred Provider Dylon Arreola Referred Address [address] [facility],[address],[place], [place],[address], Referred Provider Specialty Gastroentero logy General Notes Ambar Mayfield 2024 10:05:23 AM >requested a [facility] referral from [facility] for visit with dr pfeiffer son 29 Referral Priority Routine Medications Medication SIG (Take, Route, Fr equency, Duration) Notes Start Date End Date Status Iron 100 MG/5ML Orally infusions Active Vitamin C 250 MG 1 tablet Orally Once a day; Duration: 30 day(s) Active Lisinopril 5 MG 1 tablet Orally Once a day; Duration: 30 day(s) Active Immunizations Vaccine Route Administration [...] Risk Notes Problem Diverticular disease of colon (863163250) Diverticulosis of large intestine without perforation or abscess without bleeding (K57.30) Active confirmed Problem Iron deficiency anemia (76773806) Iron deficiency anemia, unspecified iron deficiency anemia type (D50.9) Active confirmed Problem Family history of malignant neoplasm of gastrointestinal tract (770551764) Family history of colon cancer in mother (Z80.0) Active confirmed Plan Of Treatment Pending Test Test Name Order Date Pathology 04/28/2021 Future Test Test Name Order Date UPPER GI ENDOSCOPY 01/31/2021 COLONOSCOPY 01/31/2021 Next Appt Details Provider Name:Dylon Arreola , 10/18/2025 09:20:00 AM, [address] [place] [address], [address], [place], [address], Insurance Providers Payer Name Payer Address Payer Phone Subscriber Number Group Number Insured Name Patient Relationship to Insured Coverage Start Date Coverage End Date [facility] [address] [address] [place], [place] [id number] NESS SNELL Self - patient is the insured Medical (General) History Medical History History ICD Code Hypertension Anemia--sees Dr. Lynne--has had 2 iron infusions 12/2020--can't tolerate po Iron Heavy menses by her report Kidney stones Denies NM,DM,CVA,Lung disease,renal dise ase Surgical History Surgery Date(Month/Year) BARIATRIC SURGERY IN [place]-[facility] 2018 1991,1992,1995 Surgery on broken left arm
== END 2025-07-18 11:33 | disposition home or self-care (01) ==
LOC: HO.HOS 10:50
PROVIDERS: PCP Nurse Practitioner Primary Care; Visit Provider Orthopaedic Surgery
DX: S83.281A Other tear of lateral meniscus, current injury, right knee, initial encounter (principal)
CPT/HCPCS: 99213

== ENCOUNTER → 2025-07-18 10:49 | Outpatient (BNVA) | payer OTHER, SELFPAY | PROVIDERS: PCP Nurse Practitioner Primary Care; Visit Provider Orthopaedic Surgery | DX: S83.281A Other tear of lateral meniscus, current injury, right knee, initial encounter (principal) | CPT/HCPCS: 99212 ==

== ENCOUNTER 2025-09-11 10:00 | Outpatient (AMB) | payer OTHER, SELFPAY ==
--- NOTE | 2025-09-11 10:06 | A.OFFVIS_ITS ---
Vital Signs 09/11/25 10:16 Height 5 ft 2 in Weight 170 lb BMI 31.1 BP 143/81 H Blood Pressure Location Lt brachial Position Sitting Pulse 85 Pulse Source Pulse Oximeter Pulse Oximetry (%) 98 Intake Visit Reasons: Pre-Rt Knee 09/14/25 Intake Note: Khadar is a 54 year old female who presents with complaints of progressively worsening right knee pain and giving way. The patient states that her pain has gotten worse over the last few years in spite of continued non operative treatments. She has failed the last 6 weeks of conservative treatment which has included Tylenol, anti-inflammatory medicines, gabapentin, a home exercise program and physical therapy exercises. She states that her right knee will give out several times per day. At this point her right knee pain and mechanical symptoms are interfering with her activities of daily living and her ability to sleep well through the night. Allergies morphine Adverse Reaction (Verified 09/11/25 10:17) Anxiety Medication List - Last Reconciled 09/11/25 by Glenn Bangura MD acetaminophen ER 650 mg PO Q8H PRN duloxetine 20 mg PO QAM gabapentin 300 mg PO BEDTIME lisinopril 5 mg PO DAILY meloxicam 15 mg PO DAILY PRN PFSH Medical History Arthritis Kidney stones Anemia Benign essential hypertension Surgical History History of esophagogastroduodenoscopy (EGD) H/O colonoscopy Hx of dilation and curettage Hx of section History of laparoscopic appendectomy (~11/20/23) S/P panniculectomy Tubal ligation status History of surgery on arm Hx of bariatric surgery Family History Mother Colon cancer Diabetes Sister Lupus Father Diabetes Hypertension Unknown Breast cancer Social History Household Members: Spouse Housing: Apartment Are you a primary home health care respiratory therapist to a significant other at home: No Do you presently have visiting nurse or other home services: No Alcohol intake: former Patient Tobacco Use Status: Never used Tobacco service: No Current occupational status: unemployed Current occupation: rt handed Female Reproductive History Menstrual Age of Menarche: 11 Physical Exam Vital Signs: Last Vital Signs Pulse 85 09/11/25 10:16 BP 143/81 H 09/11/25 10:16 Pulse Ox 98 09/11/25 10:16 BMI result Body Mass Index 31.1 Const Other: Well-nourished well-developed very friendly female awake alert and oriented x3 in no acute distress Extrem Other: Right knee examination shows a minimal effusion, mild crepitus with range of motion, tenderness along her lateral joint line, positive Kimi's test, no instability Results Reviewed Results Reviewed: X-rays of the patient's right knee show mild to moderate diffuse joint space narrowing, no acute bony abnormalities MRI of the patient's right knee shows mild to moderate degenerative changes as well as a lateral meniscus tear Assessment & Plan Assessment & Plan (1) Tear of lateral meniscus of right knee: Code(s): S83.281A - Other tear of lateral meniscus, current injury, right knee, initial encounter Category: Medical Plan Ms. Napoleon Avendano presents with right knee pain and mechanical symptoms due to early degenerative joint disease as well as a lateral meniscus tear. I had a lengthy discussion with the patient regarding the treatment options. She wishes to hold off on total knee replacement surgery for as long as possible. I agree with this plan. Because of the patient's significant mechanical symptoms I do feel that she will get significant relief from arthroscopic surgery. The patient wishes to proceed. Surgery will involve right knee arthroscopic partial lateral meniscectomy. The patient will be given a prescription for pain medicine at the time of her surgery. The patient also complains of a triggering right middle finger. Thus, I will have her evaluated by our hand specialist, Filipe SIERRA. She will follow up as instructed. Feel free to call me at any time should questions regarding her orthopedic management arise. I spent 21 minutes in reviewing the patient's records and imaging studies, seeing the patient and documenting in the medical record. Coding Level of Care Code Est Pt Level 3 (11988) Complex visit Add On G2211 Diagnoses Tear of lateral meniscus of right knee S83.281A
[2025-09-11 10:16] VITALS: BP 143/81; PULSE 85; O2SAT 98; BMI 31.1
== END 2025-09-11 10:24 | disposition home or self-care (01) ==
LOC: HO.HOS 10:01
PROVIDERS: PCP Nurse Practitioner Primary Care; Visit Provider Orthopaedic Surgery
DX: S83.281A Other tear of lateral meniscus, current injury, right knee, initial encounter (principal)
CPT/HCPCS: 99024

== ENCOUNTER → 2025-09-11 10:00 | Outpatient (BNVA) | payer OTHER, SELFPAY | PROVIDERS: PCP Nurse Practitioner Primary Care; Visit Provider Orthopaedic Surgery | DX: S83.281A Other tear of lateral meniscus, current injury, right knee, initial encounter (principal); M17.11 Unilateral primary osteoarthritis, right knee | CPT/HCPCS: 99212 ==

== ENCOUNTER 2025-09-14 05:51 | Day surgery (SDC) | payer OTHER, SELFPAY ==
[2025-09-11 08:19] VITALS: BMI 31.1
[2025-09-14] VITALS (8 sets, daily range): BP systolic 128–153; BP diastolic 55–94; PULSE 83–99; RESP 11–16; TEMP 36.6–36.9; O2SAT 97–100
[2025-09-14] MEDS: Lactated Ringers 1,000 ML 100 ML IVCONT (06:41)
--- NOTE | 2025-09-14 07:30 | HO.ANESPROP2 ---
Documented by User: Lily Albarado NP 09/11/25 13:55 HPI - Anesthesia Eval Consult details Narrative: 54yo F for Right Knee Arthroscopy,with Lateral Meniscectomy, 09/14/2025 [facility] Active Problems Active Problems: All Active Problems Tear of lateral meniscus of right knee (Acute) Tear of medial meniscus of right knee (Acute) Well woman exam (Acute) Osteoarthritis of right knee (Acute) Right knee pain (Acute) Status post laparoscopic appendectomy (Acute) Abnormal uterine bleeding (Acute) Encounter for IUD removal (Acute) Encounter for IUD insertion (Acute) Abnormal thyroid blood test (Acute) Menorrhagia (Acute) Anemia (Acute) Past Medical History Medical History Arthritis Kidney stones Anemia Benign essential hypertension Family History Family History Mother Colon cancer Diabetes Sister Lupus Father Diabetes Hypertension Unknown Breast cancer Family history of problems with anesthesia: No Surgical History Surgical History History of esophagogastroduodenoscopy (EGD) H/O colonoscopy Hx of dilation and curettage Hx of section History of laparoscopic appendectomy (~11/20/23) S/P panniculectomy Tubal ligation status History of surgery on arm Hx of bariatric surgery History of Problems with Anesthesia: No Social History Social History Household Members: Spouse Housing: Apartment Are you a primary care information associate to a significant other at home: No Do you presently have visiting nurse or other home services: No Alcohol intake: former Patient Tobacco Use Status: Never used Tobacco Use of substances other than those prescribed or required for medical reasons: No Have you been hit, kicked, punched, or otherwise hurt by someone within the past year? If so, by whom?: No Spiritual Healthcare Practices: no Sabianist Healthcare Practices: no Cultural Healthcare Practices: no Are you DNR?: No Advance Directives: No Advance Directives Information Provided: Yes Advance Directives on File: No Patient : No FDLMP: 09/04/25 : No service: No Current occupational status: unemployed Current occupation: rt handed Meds Allergies Allergy/AdvReac Type Severity Reaction Status Date / Time morphine AdvReac Anxiety Verified 09/11/25 10:17 Active Medications: Current Medications Cefazolin Sodium/Dextrose (Ancef) 2 gm in 50 mls @ 100 mls/hr IV PREOP ONE Stop: 09/14/25 05:46 Home Medications ?Medication ?Instructions ?Recorded ?Confirmed ?Last Taken ?Type lisinopril 5 mg tablet 5 mg PO DAILY 12/20/20 09/11/25 06/20/21 History acetaminophen 650 mg 650 mg PO Q8H PRN pain 10/10/24 09/11/25 Unknown History tablet,extended release gabapentin 300 mg capsule 300 mg PO BEDTIME 10/10/24 09/11/25 Unknown History duloxetine 20 mg capsule,delayed 20 mg PO QAM 09/07/25 09/11/25 Unknown History release Exam Height,Weight and Vital Signs: Height 5 ft 2 in Weight 77.111 kg Assessment and Plan Assessment Anesthesia Assessment: Chart Reviewed Final Anesthetic Review Family History of Problems with Anesthesia: No History of Problems with Anesthesia: No Documented by User: Lucy Howell DO 09/14/25 07:54 [facility] Past Medical History Medical History Arthritis Kidney stones Anemia Benign essential hypertension Family History Family History Mother Colon cancer Diabetes Sister Lupus Father Diabetes Hypertension Unknown Breast cancer Family history of problems with anesthesia: No Surgical History Surgical History History of esophagogastroduodenoscopy (EGD) H/O colonoscopy Hx of dilation and curettage Hx of section History of laparoscopic appendectomy (~11/20/23) S/P panniculectomy Tubal ligation status History of surgery on arm Hx of bariatric surgery History of Problems with Anesthesia: No Social History Social History Household Members: Spouse Housing: Apartment Are you a primary care information associate to a significant other at home: No Do you presently have visiting nurse or other home services: No Alcohol intake: former Patient Tobacco Use Status: Never used Tobacco Use of substances other than those prescribed or required for medical reasons: No Have you been hit, kicked, punched, or otherwise hurt by someone within the past year? If so, by whom?: No Spiritual Healthcare Practices: no Sabianist Healthcare Practices: no Cultural Healthcare Practices: no Are you DNR?: No Advance Directives: No Advance Directives Information Provided: Yes Advance Directives on File: No Patient : No FDLMP: 09/04/25 : No service: No Current occupational status: unemployed Current occupation: rt handed Meds Allergies Allergy/AdvReac Type Severity Reaction Status Date / Time morphine AdvReac Anxiety Verified 09/11/25 10:17 Home Medications ?Medication ?Instructions ?Recorded ?Confirmed ?Last Taken ?Type lisinopril 5 mg tablet 5 mg PO DAILY 12/20/20 09/11/25 06/20/21 History acetaminophen 650 mg 650 mg PO Q8H PRN pain 10/10/24 09/11/25 Unknown History tablet,extended release gabapentin 300 mg capsule 300 mg PO BEDTIME 10/10/24 09/11/25 Unknown History duloxetine 20 mg capsule,delayed 20 mg PO QAM 09/07/25 09/11/25 Unknown History release Exam Exam Date and Time: 09/14/25 0730 Height,Weight and Vital Signs: Height 5 ft 2 in Weight 77.111 kg Vital Signs Temperature 98.2 F 09/14/25 06:25 Pulse Rate 96 09/14/25 06:25 Respiratory Rate 16 09/14/25 06:25 Blood Pressure 136/66 09/14/25 06:25 Pulse Oximetry 97 09/14/25 06:25 Oxygen Delivery Method Room Air 09/14/25 06:25 Temperature 98.2 F 09/14/25 06:25 Pulse Rate 96 09/14/25 06:25 Respiratory Rate 16 09/14/25 06:25 Blood Pressure 136/66 09/14/25 06:25 Pulse Oximetry 97 09/14/25 06:25 Oxygen Delivery Method Room Air 09/14/25 06:25 Airway Mallampati Class: I TM Dist: >3cm Neck ROM: Full Loose/Missing/Broken Teeth: No (patient denies any loose or broken teeth) Heart: S1S2 Lungs: CTAB Assessment and Plan Assessment Anesthesia Assessment: Anesthesia Plan Discussed and Chart Reviewed Final Anesthetic Review Family History of Problems with Anesthesia: No History of Problems with Anesthesia: No NPO: Yes ASA Class: II Final Preanesthetic Review: No Changes in Pt Med Stat, Meds/Allgs Chart Reviewed, Consent Obtained/Reviewed (electric track switch maintainer at bedside for translation) and Anes Risks/Benef Reviewed Patient Risk: Low Procedure Risk: Low Anesthetic Plan Anesthetic Plan: GA and Agree w/ Assess. and Plan Disposition: Standard PACU
--- NOTE | 2025-09-14 08:45 | P.BOP_ITS ---
Brief Operative Note Date of Service: 09/14/25 Pre-op diagnosis: Right knee lateral meniscus tear, right knee degenerative joint disease Post-op diagnosis: same Procedure: Right knee arthroscopic partial lateral meniscectomy, right knee arthroscopic chondroplasty of the undersurface of the patella as well as the lateral femoral condyle Implants: none Surgeon: Glenn Bangura MD Anesthesia: GLMA Was an Senior Paralegal used for this Procedure?: No Estimated blood loss (mL): 10 Pathology: none sent Condition: stable Disposition: PACU
--- NOTE | 2025-09-14 08:46 | W.PM.OPN ---
Operative Note Operative Note Date of Service: 09/14/25 Narrative: After the patient was identified as Khadar Avendano and her right knee was initialed by myself they were brought to the operating room where general anesthesia was induced by the anesthesiologist in routine fashion. The patient was given 2 g of IV Ancef for infection prophylaxis. A formal time-out was completed. The patient's right lower extremity was prepped and draped in sterile fashion. Marcaine with epinephrine was injected into the planned incision sites as well as their right knee joint. A # 11 scalpel blade was used to make an anterolateral portal 1 cm proximal to the joint line and 1 cm lateral to the patellar tendon. Blunt trocar technique was used into the suprapatellar pouch with the knee in extension. Diagnostic arthroscopy showed multiple bands of thickened plica which would be excised at the end of the procedure. There were no loose bodies or abnormalities found in either the medial or lateral gutters. There were diffuse grades 1 and 2 degenerative changes of the undersurface of the patella as well as grades 1 and 2 degenerative changes of the trochlear groove. The patient's knee was flexed to 45 degrees and a valgus force was placed upon it. The medial compartment was entered. An anteromedial portal was made 1 cm proximal to the joint line and 1 cm medial to the patellar tendon. Probing of the medial meniscus showed no evidence of meniscus tearing. There were diffuse grade 1 degenerative changes of the medial femoral condyle as well as diffuse grade 1 degenerative changes of the medial tibial plateau. The patient's knee was then placed into a neutral position. There was no injury to the anterior cruciate ligament. The patient's knee was then placed into the figure of 4 position and the lateral compartment was entered. There were diffuse grade 2 and 3 degenerative changes of the lateral femoral condyle as well as grade 1 and 2 degenerative changes of the lateral tibial plateau. The articular surface of the lateral femoral condyle was made smooth using the arthroscopic shaver. The articular surface of the lateral tibial plateau was already smooth so no chondroplasty was indicated. There was a radial tear of the lateral meniscus. A partial lateral meniscectomy was performed using the arthroscopic shaver. Following the partial meniscectomy the remainder of the meniscus tissue was stable. The patient's knee was once again brought into extension and the suprapatellar pouch was entered. The arthroscopic shaver and the ArthroCare Wand were used to excise the thickened bands of plica. The undersurface of the patella was then made smooth using the arthroscopic shaver. The articular surface of the trochlear groove was already smooth so no chondroplasty was indicated. The knee joint was irrigated and then drained. All arthroscopic instruments were removed. The 2 portals were closed with 3-0 nylon interrupted suture. The knee joint was injected with Marcaine. Dry sterile dressing and Derrell bandages were placed over the patient's knee. The patient was awoken and extubated in the operating room. They were transferred to the recovery room in stable condition.
[2025-09-14] MEDS: oxyCODONE HCl Immed Release 5 MG TABLET PO (09:03)
== END 2025-09-14 09:46 | disposition home or self-care (01) ==
PROVIDERS: PCP Nurse Practitioner Primary Care; Visit Provider Orthopaedic Surgery
PROC: (CPT 29870; principal; 2025-09-14 07:30)
DX: S83.281A Other tear of lateral meniscus, current injury, right knee, initial encounter (principal); M25.561 Pain in right knee; M23.51 Chronic instability of knee, right knee; M67.51 Plica syndrome, right knee; M17.11 Unilateral primary osteoarthritis, right knee; I10 Essential (primary) hypertension; D50.9 Iron deficiency anemia, unspecified; Z79.899 Other long term (current) drug therapy; Z88.5 Allergy status to narcotic agent; Z98.84 Bariatric surgery status; Z98.890 Other specified postprocedural states; Z98.51 Tubal ligation status; Z56.0 Unemployment, unspecified
CPT/HCPCS: 29881; J0131; J0165; J0690; J0696; J1100; J1885; J2003; J2250; J2405; J2704; J2795; J3010

== ENCOUNTER → 2025-09-14 05:51 | Outpatient (BNV) | payer OTHER, SELFPAY | PROVIDERS: PCP Nurse Practitioner Primary Care; Visit Provider Orthopaedic Surgery | DX: S83.282A Other tear of lateral meniscus, current injury, left knee, initial encounter (principal) | CPT/HCPCS: 29881 ==

== ENCOUNTER 2025-09-25 09:02 | Outpatient (AMB) | payer OTHER, SELFPAY ==
--- OUTSIDE RECORDS SUMMARY | 2025-03-01 04:20 | XMS_ITS ---
Author Organization [facility] Address [address] [place] [address] Care Team Providers Care Consumer Marketing Analyst Name Role Phone RUBY MENENDEZ N.P. Primary Care Provider UnavailDylon Nash Unavailable [phone] KATHRYN HOFF Unavailable Unavailable REASON FOR VISIT Patient presents today for a colon screening Encounters Encounter Location Date Provider Diagnosis [facility] [address] [place] [phone] 03/01/2025 Dylon Arreola Plan Of Treatment Next Appt Details Provider Name:Dylon Arreola , 10/18/2025 09:20:00 AM, [address] [place] [address], [address], [place], [address], Progress Notes * NESS SNELL TDOB: 1970 (54 yo F)Acc No.[id number]:03/01/2025 Progress Notes Patient: NESS TRIVEDI Provider: Laney Arreola MD :1970 A ge:54 Y S ex:Female Date:03/01/2025 Address:[address] [place] [address] [facility] Pcp:RUBY MENENDEZ N.P. Subjective: * Chief Complaints: * P atient presents today for a colon screening * The named appointment provid er may or may not be the originator of this progress note, and it is not deemed complete until electronically signed by the appointment provider. Sign off status: Pending * Provider: Laney Arreola MD Date: 0 03/01/2025 Generated for Calvin reilly/Roshan/Radha on: 1 11/26/2024 09:38 AM EST
--- OUTSIDE RECORDS SUMMARY | 2025-06-13 08:20 | XMS_ITS ---
Author Organization [facility] Address [address] [place] [address] Care Team Providers Care Operations Manager Name Role Phone RUBY MENENDEZ N.P. Primary Care Provider UnavailDylon Nash Unavailable [phone] KATHRYN HOFF Unavailable Unavailable REASON FOR VISIT Patient presents today for a colon screening Encounters Encounter Location Date Provider Diagnosis [facility] [address] [place] [phone] 06/13/2025 Dylon Arreola Plan Of Treatment Next Appt Details Provider Name:Dylon Arreola , 10/18/2025 09:20:00 AM, [address] [place] [address], [address], [place], [address], Progress Notes * NESS SNELL TDOB: 1970 (54 yo F)Acc No.[id number]:06/13/2025 Progress Notes Patient: NESS TRIVEDI Provider: Laney Arreola MD :1970 A ge:54 Y S ex:Female Date:06/13/2025 Address:[address] [place] [address] [facility] Pcp:RUBY MENENDEZ N.P. Subjective: * Chief Complaints: * P atient presents today for a colon screening * The named appointment provid er may or may not be the originator of this progress note, and it is not deemed complete until electronically signed by the appointment provider. Sign off status: Pending * Provider: Laney Arreola MD Date: 0 06/13/2025 Generated for Calvin reilly/Roshan/Radha on: 1 11/26/2024 09:38 AM EST
--- NOTE | 2025-09-25 09:21 | A.OFFVIS_ITS ---
Intake Visit Reasons: PO-Rt Knee 09/14/25 Intake Note: Khadar is a 54 year old female who presents with complaints of mild discomfort in her right knee after undergoing right knee arthroscopic surgery on 09/14/2025. She denies any fevers or chills. She does take Tylenol as needed for her discomfort. She continues with her home stretching program. Auxiliary Equipment Operator Required: Yes Auxiliary Equipment Operator Services: Auxiliary Equipment Operator Present Auxiliary Equipment Operator Name: Leonid [id number] Allergies morphine Adverse Reaction (Verified 09/11/25 10:17) Anxiety Medication List - Last Reconciled 09/25/25 by Glenn Bangura MD acetaminophen ER 650 mg PO Q8H PRN duloxetine 20 mg PO QAM gabapentin 300 mg PO BEDTIME lisinopril 5 mg PO DAILY meloxicam 15 mg PO DAILY PRN oxycodone 5 mg PO Q6H PRN PFSH Medical History Arthritis Kidney stones Anemia Benign essential hypertension Surgical History History of esophagogastroduodenoscopy (EGD) H/O colonoscopy Hx of dilation and curettage Hx of section History of laparoscopic appendectomy (~11/20/23) S/P panniculectomy Tubal ligation status History of surgery on arm Hx of bariatric surgery Family History Mother Colon cancer Diabetes Sister Lupus Father Diabetes Hypertension Unknown Breast cancer Social History Household Members: Spouse Housing: Apartment Are you a primary long term care phlebotomist to a significant other at home: No Do you presently have visiting nurse or other home services: No Alcohol intake: former Comment: medicated Patient Tobacco Use Status: Never used Tobacco service: No Current occupational status: unemployed Current occupation: rt handed Female Reproductive History Menstrual Age of Menarche: 11 Physical Exam Extrem Other: Right knee examination shows that the surgical incisions are healing well, no erythema, mild discomfort with range of motion, no instability Assessment & Plan Assessment & Plan (1) Right knee pain: Code(s): M25.561 - Pain in right knee Category: Medical Plan Khadar is doing well after undergoing right knee arthroscopic surgery on 09/14/2025. Her sutures were removed and Steri-Strips placed over her incisions. She will continue with her home exercise program. She does not wish to go to formal physical therapy at this time. She will contact me prior to her follow-up appointment in 2-3 months should any questions or concerns arise. Feel free to call me at any time should questions regarding her orthopedic management arise. Coding Level of Care Code Global (27654) Diagnoses Right knee pain M25.561
--- OUTSIDE RECORDS SUMMARY | 2025-09-25 09:39 | XMS_ITS | Encounter Summary ---
Author Organization [employer] Address [address] [place] [address] Care Team Providers Care Crusher Supervisor Name Role Phone Imelda Rae Primary Care Provider [phone] Encounter Details Date Type Department Care Team (Latest Contact Info) Description 05/21/2021 Abstract [facility] CONVERSIONS Dental, Provider, DDS Social [...] Care Team (Late st Contact Info) Description 10/16/2025 1:00 PM EST Office Visit [facility] MEDICINE [address] [place] [address] Imelda Rae ANP [address] [place] [address] documented as of this encounter Visit Diagnoses Not on filedocumented in this encounter Care Teams Crusher Supervisor Relationship Specialty Start Date End Date Imelda Rae ANP [address] [place] [address] PCP - General Family Medicine 12/01/19 documented as of this encounter
--- OUTSIDE RECORDS SUMMARY | 2025-09-25 09:39 | XMS_ITS | Encounter Summary ---
Author Organization [facility] [facility] Address [address] [place] [address] Care Team Providers Care Nurse Case Management Name Role Phone Imelda Rae Primary Care Provider [phone] Encounter Details Date Type Department Care Team (Late Contact Info) Description 06/25/2023 Orders Only [facility] MEDICINE [address] [place] [address] [phone] Provider, MD Joanie Social History Tobacco Use [...] Description 10/16/2025 1:00 PM EST Office Visit [facility] MED[facility]INE [address] [place] [address] [phone] Imelda Rae ANP [address] [place], [place] [phone] documented as of this encounter Procedures Procedure [...] documented as of this encounter Care Teams Nurse Case Management Relationship Specialty Start Date End Date Imelda Rae ANP [address] [place] [phone] PCP - General Family Medicine 12/01/19 documented as of this encounter
--- OUTSIDE RECORDS SUMMARY | 2025-09-25 09:39 | XMS_ITS | Clinical Summary ---
Author Organization [employer] Address [address] [place] [address] [address] [place] [address] Care Team Providers Care Salesforce Consultant Name Role Phone Ruby Menendez SHANIQUE Primary Care Provider [phone] Allergies Active Allergy Reactions Criticality Noted Date [...] tabletIndications :Menorrhagia with regular cycle Take per MUSIC INSTRUCTOR instructions, at least 2 tabs twice daily [...] Encounters Date Type Department Care Team Description 08/08/2025 Telephone [facility] MEDICINE [address] [place] [address] Ruby Menendez ANP chart prep from Last 3 Months Immunizations Immunization Administration Dates Next Due Hep B, adult 03/17/2024,06/18/2020 Influenza injectable quadriv alent preservative free 07/29/2023,11/13/2022,06/26/2020,2019 Influenza, IIV3, injectable 06/10/2021, 0 Influenza, Recombinant, inje ctable, preservative free 06/18/2025 Influenza, intradermal, quad rivalent, preservative free 06/10/2021 Influenza, seasonal, injecta ble, preservative free 08/03/2024 Moderna Covid-19 Vaccine 12+ 04/29/2022, 11/01/2021,03/08/2021,2020 Moderna Covid-19 Vaccine 6+ Bivalent 10/29/2022 Pneumococcal Conjugate PCV 20 06/18/2025 Tdap 11/24/2019 Zoster, Recombinant 03/18/2022,01/07/2022 Family History [...] Description 10/16/2025 1:00 PM EST Office Visit [facility] MEDICINE [address] [place], [place] [phone] Ruby Menendez, ANP [address] [place] [address] Health Maintenance Due Date Last Done Comments [...] 07/14/2022 Tobacco Screening 12/12/2025 12/12/2024 Colonoscopy 04/28/2026 04/28/2021, 04/28/2021 Colorectal Cancer Screening 04/28/2026 Cervical Cancer Screening [...] 11:43 AM EDT HM PAP/HPV Routine 06/17/2021 HM COLONOSCOPY Routine 04/28/2021 [facility] HISTORICAL HEPATITIS C ANTIBODY RFLX Routine 11/28/2019 8:30 AM EST [facility] HISTORICAL HIV AB/AG Routine 11/28/2019 8:30 AM EST from Last 3 Months or Most Recently Relevant to Health Maintenance Results * BI Mammogram Screening Tomosynthesis Bilateral (06/18/2025 3:40 PM EDT) Anatomical Region Laterality Modality Breast Bilateral Mammography 06/18/2025 3:40 PM EDT Narrative 06/19/2025 6:46 PM EDT [facility] [address] [place] [address] [place] [address] Mammography Report Signed Patient: Khadar Sullivan MR#: [id number] : 1970 Acct:[id number] Age/Sex: 54 / F ADM Date: 06/18/25 Loc: HO.MAMMO Attending Dr: Ruby Menendez NP Ordering Physician: RUBY MENENDEZ NP Results: 2Benign Dwayne arguello Date of Service: 06/18/25 Follow Up: 1 Year From [facility] ina Mammogram Procedure(s): MM tomosynthesis screening BI Accession Number(s): [id number] cc: RUBY MENENDEZ NP Reason For Exam: [...] 06/19/25 1843 DD/ 1540 TD/TT: 06/18/25 1556 Ase Certified Technician: Procedure Note Donotuseinterpreter, Image - [facility]19/[facility] [address] [place] [address] Mammography Report Signed Patient: Khadar Sullivan#: M [id number] : 1970Acct:[id number] Age/Sex: 54 / FADM Date: 06/18/25 Loc: HO.MAMMO Attending Dr: Ruby Menendez NP Ordering Physician: RUBY MENENDEZ NPResults: 2Benign Dwayne arguello Date of Service: 06/18/25Follow Up: 1 Year From Orig inal Mammogram Procedure(s): MM tomosynthesis screening BI Accession Number(s): [id number] cc: RUBY MENENDEZ NP Reason For Exam: [...] by Aby Dahl MD in OV> 06/19/25 7493 DD/ 1540 TD/TT: 06/18/25 1556 Ase Certified Technician: us Ruby Menendez ANP IMG BI PROCEDURES Edited Result - Final * (ABNORMAL) Lipid Panel, Standard (11/02/2022 8:52 AM EST) Cholesterol, Total 211(H) <200 mg/dL [facility] HDL Cholesterol 60 > OR = 50 mg/dL [facility] Triglycerides 91 <150 mg/dL [facility] LDL Cholesterol 132(H) mg/dL (calc) [facility] Comment: Reference range: <100 Desirable range <100 mg/dL for primary prevention; <70 mg/dL for patients with CHD or diabetic patients with > or = 2 CHD risk factors. LDL-C is now calculated using the Gurwinder calculation, which is a validated novel method providing better accuracy than the Friedewald equation in the estimation of LDL-C. Bhaskar SS et al. FLETCHER. 2013;310(19): 8324-1566 (http://education.eSight/faq/ZIQ715) Chol/HDLC Ratio 3.5 <5.0 (calc) [facility] Non-HDL Cholesterol 151(H) <130 mg/dL (calc) [facility] Comment: For patients with diabetes plus 1 major ASCVD risk factor, treating to a non-HDL-C goal of <100 mg/dL (LDL-C of <70 mg/dL) is considered a therapeutic option. Blood Venous blood specimen / Unknown 11/02/2022 8:52 AM EST 11/02/2022 8:53 AM EST Narrative [facility] - 11/02/2022 7:55 PM EST FASTING:YES FASTING: YES us Ruby Menendez ANP LAB BLOOD ORDERABLES Final Resul t [facility] [address] [facility], [facility], [place] [address] [facility] [employer] [facility] [address] [facility], (N[address]2) [place] [address] * HPV E6/E7 RFLX JULIAN 16 18/45 (06/17/2021 11:43 AM EDT) Pathologist [facility] HPV 16 RNA [facility] HPV 18/45 RNA [facility] HPV E6 E7 ADD [facility] HPV mRNA E6/E7 rflx Not Detected Not Detected [facility] Comment: Methodology: Box Coverer Hand-Mediated Amplification This assay detects E6/E7 viral messenger RNA (mRNA) from 14 high-risk HPV types (16,18,31,33,35,39,45,51,52,56,58,59,66,68). The analytical performance characteristics of this assay have been determined by [facility]. The modifications have not been cleared or approved by the FDA. This assay has been validated pursuant to the CLIA regulations and is used for clinical purposes. For additional information, please refer to http://education.[employer]IZ Inc./faq/ZQF005z5 (This link if provided for information/ educational purposes only.) THIS TEST WAS PERFORMED AT: [facility] [address] [place] [address],[place] [address] TARIQ ALVAREZ MD 06/17/2021 11:4 3 AM EDT Duy Celeste MD HISTORICAL/NON ORDERABLE LABS Fi nal Result [facility] [address] * Pap Smear (06/17/2021) Joanie Mccormack MD HEALTH MAINTENANCE Final Result * Hm Colonoscopy (04/28/2021) Pathologist [facility] Colonoscopy Normal Normal Joanie Mccormack MD HEALTH MAINTENANCE Final Result * HEPATITIS C ANTIBODY RFLX (11/28/2019 8:30 AM EST) Pathologist [facility] HEPATITIS C ANTIBODY NONREACTIVE NONREACTIVE [facility] Comment: Antibodies to HCV not detected; does not exclude early acute HCV infection. 11/28/2019 8:30 AM EST Ruby [facility]AY HISTORICAL/NON ORDERABLE LABS Fi nal Result Performing Organization Address [facility] de Phone Number [facility] [address] * HIV AB/AG (11/28/2019 8:30 AM [...] of detection of this assay. The [facility] Coordinator HIV Ag/Ab Combo assay result and supplemental assay results should be interpreted in conjunction with the patient's clinical presentation, history and other laboratory results. If the results are inconsistent with clinical evidence, additional testing is suggested to confirm the result. 11/28/2019 8:30 AM EST Ruby [facility] HISTORICAL/NON ORDERABLE LABS Fi nal Result Performing Organization Address [facility] de Phone Number [facility] [address] from Last 3 Months or Most Recently Relevant to Health Maintenance Insurance [facility] [employer] 2 Care Teams Salesforce Consultant Relationship Specialty Start Date End Date Ruby Menendez ANP [address] [place] [address] PCP - General Family Medicine 12/01/19
--- OUTSIDE RECORDS SUMMARY | 2025-09-25 09:39 | XMS_ITS | Encounter Summary ---
Author Organization [employer] [facility] Address [address] [place] [address] Care Team Providers Care Roll Filler Name Role Phone Imelda Rae Primary Care Provider [phone] Reason for Visit * Reason Comments Med Change Request Encounter Details Date Type Department Care Team (Late st Contact Info) Description 05/29/2023 Refill [facility] MEDICINE [address] [place] [address] [phone] Imelda Rae ANP [address] [place], [place] [phone] Menorrhagia with regular cycle Social History Tobacco [...] Description 10/16/2025 1:00 PM EST Office Visit [facility] MEDICINE [address] [place] [address] Imelda Rae ANP [address] [place], [place] [phone] documented as of this encounter Visit Diagnoses Diagnosis Menorrhagia with regular cycle documented in this encounter Additional Health Concerns Assessment Noted Time PHQ-9 Depression Total Score: 0 10/29/19 23 11:10 AM EST documented as of this encounter Care Teams Roll Filler Relationship Specialty Start Date End Date Imelda Rae ANP [address] [place] [address] PCP - General Family Medicine 12/01/19 documented as of this encounter
--- OUTSIDE RECORDS SUMMARY | 2025-09-25 09:39 | XMS_ITS | Patient Health Record ---
Author Organization [facility] Address [address] [place] [address] Care Team Providers Care Testboard Operator Name Role Phone RUBY MENENDEZ N.P. Primary Care Provider Dylon Berry Unavailable [phone] KATHRYN HOFF Unavailable Unavailable Reason For Referral Referring Provider First Name RUBY Referring Provider Last Name SHON Angelo Referred Organization [facility] Referred Provider Dylon Arreola Referred Address [address] [facility],[address],[place], [place],[address], Referred Provider Specialty Gastroentero logy General Notes Ambar Mayfield 2024 10:05:23 AM >requested a [facility] referral from [facility] for visit with dr pfeiffer son [phone] Referral Priority Routine Medications Medication SIG (Take, Route, Frequency, Duration) Notes Start Date End Date Status Iron 100 MG/5ML Suspension Orally infusions Active Vitamin C 250 MG Tablet Chewable 1 tablet Orally Once a day; Duration: 30 day(s) Active Lisinopril 5 MG Tablet 1 tablet Orally O nce a day; Duration: 30 day(s) Active Immunizations Vaccine Route Administration Date Status Comme nts Influenza Unknown 06/04/2020 Administered Social History Tobacco Use: Social History Observation Description Date Details (start date - stop date) Never Smoker NA - NA Social History Drugs/Alcohol: Social Info Question Answer Notes Alcohol Screen Did you have a drink containing alcohol in the past year? No Points 0 Interpretation Negative Tobacco Use: Social Info Question Answer Notes Tobacco Use/Smoking Patient is a nonsmoker Additional Details Category Social Info Options Details Miscellaneous: Marital status: Occupation: at home Section Notes: Nonsmoker; no sig alcohol Problems Problem Type SNOMED Code ICD Code Onset Dates Problem Status W/U Status Risk Notes Problem Diverticular disease of colon (856855136) Diverticulosis of large intestine without perforation or abscess without bleeding (K57.30) Active confirmed Problem Iron deficiency anemia (03080748) Iron deficiency anemia, unspecified iron deficiency anemia type (D50.9) Active confirmed Problem Family history of malignant neoplasm of gastrointestinal tract (940883656) Family history of colon cancer in mother (Z80.0) Active confirmed Plan Of Treatment Pending Test Test Name Order Date Pathology 04/28/2021 Future Test Test Name Order Date UPPER GI ENDOSCOPY 01/31/2021 COLONOSCOPY 01/31/2021 Next Appt Details Provider Name:Dylon Arreola , 10/18/2025 09:20:00 AM, [address] [place] [address], [address], [place], [address], Insurance Providers Payer Name Payer Address Payer Phone Subscriber Number Group Number Insured Name Patient Relationship to Insured Coverage Start Date Coverage End Date [facility] [address] [address] [place], [place] [id number] NESS [employer] Self - patient is the insured Medical (General) History Medical History History ICD Code Hypertension Anemia--sees Dr. Lynne--has had 2 iron infusions 12/2020--can't tolerate po Iron Heavy menses by her report Kidney stones Denies OR,DM,CVA,Lung disease,renal dise ase Surgical History Surgery Date(Month/Year) BARIATRIC SURGERY IN [place] 2018 1991,1992,1995 Surgery on broken left arm
--- OUTSIDE RECORDS SUMMARY | 2025-09-25 09:39 | XMS_ITS | Encounter Summary ---
Author Organization [employer] Address [address] [place] [address] Care Team Providers Care Spreader Name Role Phone Imelda Rae Primary Care Provider [phone] Encounter Details Date Type Department Care Team (Latest Contact Info) Description 07/26/2020 Abstract [facility] CONVERSIONS Dental, Provider, DDS Social History [...] Description 10/16/2025 1:00 PM EST Office Visit [facility] MEDICINE [address] [place] [address] Imelda Rae ANP [address] [place] [address] documented as of this encounter Visit Diagnoses Not on filedocumented in this encounter Care Teams Spreader Relationship Specialty Start Date End Date Imelda Rae ANP [address] [place] [address] PCP - General Family Medicine 12/01/19 documented as of this encounter
== END 2025-09-25 09:39 | disposition home or self-care (01) ==
LOC: HO.HOS 09:03
PROVIDERS: PCP Nurse Practitioner Primary Care; Visit Provider Orthopaedic Surgery
DX: M25.561 Pain in right knee (principal)
CPT/HCPCS: 99024

== ENCOUNTER → 2025-09-25 09:02 | Outpatient (BNVA) | payer OTHER, SELFPAY | PROVIDERS: PCP Nurse Practitioner Primary Care; Visit Provider Orthopaedic Surgery | DX: Z47.89 Encounter for other orthopedic aftercare (principal); M25.561 Pain in right knee | CPT/HCPCS: 99212 ==